=== PATIENT | male | born 1980 | race Caucasian/White ===

== ENCOUNTER 2016-09-16 22:28 | Emergency (ER) | payer OTHER ==
[~2016-09-16] VITALS: Ht 175.3 cm; Wt 88.0 kg
[~2016-09-16 22:28] MED LIST: ASPI-664 PO; LAS20 PO; LEVO500T10 PO; POTA20TA15 PO
[2016-09-16 22:33] VITALS: Ht 175.3 cm; Wt 88.0 kg
[2016-09-16] MEDS ORDERED: FAMOTIDINE 20 MG INJ IV STA (22:49)
[2016-09-16] MEDS ORDERED: ONDANSETRON 4 MG INJ IV STA (22:49)
[2016-09-16] MEDS ORDERED: LIDOCAINE/MYLANTA 40 ML BTL PO STA (22:49)
[2016-09-16] MEDS ORDERED: HYDROmorphONE 1 MG/ML SYG IV STA (22:49)
[2016-09-16 23:02] LABS: BASOPHIL # 0.1 10^3/ul (0.0-0.1); BASOPHILS % 0.5 % (0.0-2.0); EOSINOPHILS # 0.1 10^3/ul (0.0-0.5); EOSINOPHILS % 0.5 % (0.0-7.0); HEMATOCRIT 50.1 % (42.0-52.0); HEMOGLOBIN 16.9 g/dl (14.0-18.0); LYMPHOCYTES # 3.3 10^3/ul (0.8-2.9); LYMPHOCYTES % 19.3 % (15.0-51.0); MEAN CORPUSCULAR HEMOGLOBIN 30.1 pg (29.0-33.0); MEAN CORPUSCULAR HGB CONC 33.7 g/dl (32.0-37.0); MEAN CORPUSCULAR VOLUME 89.4 fl (82.0-101.0); MEAN PLATELET VOLUME 7.5 fl (7.4-10.4); MONOCYTE # 0.8 10^3/ul (0.3-0.9); MONOCYTES % 4.5 % (0.0-11.0); NEUTROPHIL # 12.8 10^3/ul (1.6-7.5); NEUTROPHILS % 75.2 % (39.0-77.0); PLATELET COUNT 387 10^3/UL (140-440); RED CELL DISTRIBUTION WIDTH 13.7 % (11.5-14.5)
[2016-09-16 23:03] LABS: CONDITION 1
[2016-09-16 23:17] LABS: ALBUMIN 4.7 g/dl (3.3-4.9); CHLORIDE 100 mmol/L (97-110)
[2016-09-16 23:18] LABS: POTASSIUM 4.1 mmol/L (3.5-5.1); SODIUM 143 mmol/L (135-144)
[2016-09-16 23:20] LABS: ALANINE AMINOTRANSFERASE 52 IU/L (13-69); ALBUMIN/GLOBULIN RATIO 1.42; ALKALINE PHOSPHATASE 90 IU/L (42-121); ANION GAP 22 (8-16); ASPARTATE AMINO TRANSFERASE 28 IU/L (15-46); BILIRUBIN,INDIRECT 0.3 mg/dl (0-1.1); BILIRUBIN,TOTAL 0.3 mg/dl (0.2-1.3); BLOOD UREA NITROGEN 14 mg/dl (7-20); CALCIUM 10.2 mg/dl (8.4-10.2); CARBON DIOXIDE 25 mmol/L (21-31); CREATININE 0.86 mg/dl (0.61-1.24); GLUCOSE 133 mg/dl (70-220)
[2016-09-16 23:46] LABS: TROPONIN-I < 0.012 ng/ml (0.00-0.12)
[2016-09-16] MEDS ORDERED: SOD CHLORIDE 0.9% 100 ML ONE (23:56)
[2016-09-16] MEDS ORDERED: IOHEXOL 300MG/ML 150 ML BTL ONE (23:56)
--- NOTE | 2016-09-17 | RADRPT ---
PROCEDURE: Ultrasound of the abdomen. CLINICAL INDICATION: Right upper quadrant pain. TECHNIQUE: Sonographic images of the abdomen were performed. COMPARISON: No pertinent prior examinations were submitted for comparison. FINDINGS: Examination is limited by body habitus. Liver: The liver is normal in echogencity and size measuring approximately 14.8 cm. The hepatic vei ns and portal veins are patent with appropriate directional flow. No intrahepatic ductal dilatation is seen. Gallbladder: Small stones are noted within the gallbladder, including the gallbladder neck. There is also some sludge in the gallbladder. The gallbladder is distended with wall thickening measuring up to 5.7 mm. No definite pericholecystic free fluid is seen. The common duct measures 3.2 mm. Pancreas: There is limited evaluation of the pancreatic body and tail. The visualized portions of the pancreas are unremarkable. Kidneys: The right kidney measures 10.6 cm. There is normal corticomedullary differentiation. Ther e is no evidence of renal calculus or hydronephrosis. IVC: The visualized portion of the inferior vena cava is unremarkable. Aorta: Normal in size. Free fluid: None. IMPRESSION: Cholelithiasis with gallbladder distension and gallbladder wall thickening. Findings are suggestive of cholecystitis. RPTAT: HIKT .Eran Padilla MD, MD Date Time Electronically viewed and signed by .Eran Padilla MD, MD on 09/17/2016 00:00 .T/
[2016-09-17] MEDS ORDERED: HYDROmorphONE 1 MG/ML SYG IV STA (00:34)
[2016-09-17] MEDS ORDERED: DICY20TA59 PO (00:40)
[2016-09-17] MEDS ORDERED: ONDA4TAB14 PO (00:40)
[2016-09-17] MEDS ORDERED: HYDR-902 PO (00:40)
--- NOTE | 2016-09-17 00:51 | ERD ---
ER Documentation Chief Complaint Date/Time DATE: 09/17/16 TIME: 00:42 Chief Complaint abd pain x 3 hours HPI This a 36-year-old male who comes in with complaining of epigastric sharp pain onset 3 hours ago. Patient states that he smoked meth and marijuana a few hours ago as well. He is not having any chest pain or shortness of breath but is having some severe epigastric pain without radiation. He says he is nauseated and try to make himself vomit to feel better but it did not work. He has no diarrhea no back pain no melena no blood in his vomitus. Patient does say he just ate a fatty meal. The patient has a history of congestive heart failure ROS All systems reviewed and are negative except as per history of present illness. Medications Home Meds Active Scripts Hydrocodone/Acetaminophen ([place] 10-325 Tablet) 1 Each Tablet, 1 TAB PO Q6H Y for PAIN, #20 TAB Prov:MARK KHAN DO 09/17/16 Ondansetron (Ondansetron Odt) 4 Mg Tab.rapdis, 4 MG PO Q6H Y for NAUSEA AND/OR VOMITING, #10 TAB Prov:MARK KHAN DO 09/17/16 Dicyclomine Hcl* (Bentyl*) 20 Mg Tablet, 20 MG PO QID, #30 TAB Prov:MARK KHAN DO 09/17/16 Potassium Chloride* (K-Dur*) 20 Meq Tab.prt.sr, 20 MEQ PO DAILY, #60 TAB.SA Prov:GINNA BRAVO MD 12/20/15 Furosemide (Lasix) 20 Mg Tab, 20 MG PO BID for CHF, #120 TAB Prov:GINNA BRAVO MD 12/20/15 Levofloxacin* (Levofloxacin*) 500 Mg Tablet, 500 MG PO DAILY for acute bronchitis , #5 TAB Prov:GINNA BRAVO MD 12/20/15 Aspirin* (Aspirin* EC) 81 Mg Tablet.dr, 81 MG PO DAILY, #100 TAB Prov:GINNA BRAVO MD 12/20/15 Allergies Allergies: Coded Allergies: No Known Allergy (Unverified , 09/16/16) PMhx/Soc Medical and Surgical Hx: pt denies Surgical Hx History of Surgery: No Anesthesia Reaction: No Hx Neurological Disorder: No Hx Respiratory Disorders: Yes (SOB) Hx Cardiac Disorders: Yes (CHF) Hx Psychiatric Problems: No Hx Miscellaneous Medical Probl: Yes (drug abuse) Hx Alcohol Use: No Hx Substance Use: Yes (crystal meth and marijuana earlier tonight) Hx Tobacco Use: No Smoking Status: Never smoker FmHx Family History: No coronary disease Physical Exam Vitals Vital Signs Date Time Temp Pulse Resp B/P Pulse Ox O2 Delivery O2 Flow Rate FiO2 09/16/16 22:52 97.9 82 28 149/90 100 Room Air 09/16/16 22:33 97.2 102 20 167/107 97 Physical Exam Const: Well-developed, well-nourished in distress from pain Head: Atraumatic, normocephalic Eyes: Normal Conjunctiva, PERRLA, EOMI, normal sclera, no nystagmus ENT: Normal External Ears, Nose and Mouth, moist mucus membranes. Neck: Full range of motion. No meningismus, no lymphadenopathy. Resp: Clear to auscultation bilaterally, no wheezing, rhonchi, rales Cardio: Regular rate and rhythm, no murmurs, S1 S2 present Abd: Soft, moderate to severe epigastric tenderness, non distended. Normal bowel sounds, no guarding or rebound, no pulsitile abdominal masses or bruits Skin: No petechiae or rashes, no ecchymosis , no maculopapular rash Back: No midline or flank tenderness Ext: No cyanosis, or edema, FROM x 4, normal inspection, neurovascularly intact x 4 Neur: Awake and alert, STR 5/5 x 4, sensation intact x 4, no focal findings, cerebellum intact Psych: Normal Mood and Affect Result Diagram: 09/16/16224909/16/162249 Results 24 hrs Laboratory Tests Test 09/16/16 22:50 Alanine Aminotransferase (ALT/SGPT) 52IU/L Albumin 4.7g/dl Albumin/Globulin Ratio 1.42 Alkaline Phosphatase 90IU/L Anion Gap 22 Aspartate Amino Transf (AST/SGOT) 28IU/L Basophils # 0.110^3/ul Basophils % 0.5% Blood Urea Nitrogen 14mg/dl Calcium Level 10.2mg/dl Carbon Dioxide Level 25mmol/L Chloride Level 100mmol/L Creatinine 0.86mg/dl Direct Bilirubin 0.00mg/dl Eosinophils # 0.110^3/ul Eosinophils % 0.5% Globulin 3.30g/dl Glucose Level 133mg/dl Hematocrit 50.1% Hemoglobin 16.9g/dl Indirect Bilirubin 0.3mg/dl Lipase 71U/L Lymphocytes # 3.310^3/ul Lymphocytes % 19.3% Mean Corpuscular Hemoglobin 30.1pg Mean Corpuscular Hemoglobin Concent 33.7g/dl Mean Corpuscular Volume 89.4fl Mean Platelet Volume 7.5fl Monocytes # 0.810^3/ul Monocytes % 4.5% Neutrophils # 12.810^3/ul Neutrophils % 75.2% Nucleated Red Blood Cells # 0.010^3/ul Nucleated Red Blood Cells % 0.0/100WBC Platelet Count 84127^3/UL Potassium Level 4.1mmol/L Red Blood Count 5.6010^6/ul Red Cell Distribution Width 13.7% Sodium Level 143mmol/L Total Bilirubin 0.3mg/dl Total Protein 8.0g/dl Troponin I < 0.012ng/ml White Blood Count 17.010^3/ul Current Medications Medications (Trade) Dose Ordered Sig/Braxton Route PRN Reason Start Time Stop Time Status Last Admin Dose Admin Hydromorphone HCl (Dilaudid) 1 mg ONCE STAT IV 09/16/16 22:49 09/16/16 22:52 DC 09/16/16 22:58 Ondansetron HCl (Zofran Inj) 4 mg ONCE STAT IV 09/16/16 22:49 09/16/16 22:52 DC 09/16/16 22:58 Famotidine (Pepcid Iv) 20 mg ONCE STAT IV 09/16/16 22:49 09/16/16 22:52 DC 09/16/16 22:58 Miscellaneous Medication (Gi Cocktail (2)) 40 ml ONCE STAT PO 09/16/16 22:49 09/16/16 22:52 DC 09/16/16 22:58 IV Flush 10 ml 10 ml STK-MED ONCE .ROUTE 09/16/16 23:56 09/16/16 23:57 DC Sodium Chloride (NS) 100 ml @ ud STK-MED ONCE .ROUTE 09/16/16 23:56 09/16/16 23:57 DC Iohexol (Omnipaque 300mg/ ml) 150 ml STK-MED ONCE .ROUTE 09/16/16 23:56 09/16/16 23:57 DC Dicyclomine HCl (Bentyl) 20 mg ONCE ONCE IM 09/17/16 01:00 09/17/16 01:01 Hydromorphone HCl (Dilaudid) 1 mg ONCE STAT IV 09/17/16 00:34 09/17/16 00:36 DC 09/17/16 00:39 Procedures/MDM EKG: Rate/Rhythm: Normal sinus rhythm heart rate 87, inverted T waves in leads V2 V3 V4 QRS, ST, QT: NORMAL VA, QRS, QT] Impression: Abnormal EKG EKG2: Rate/Rhythm: Sinus bradycardia heart rate 54, inverted T waves in leads V2 V3 V4 V5 QRS, ST, QT: NORMAL VA, QRS, QT Impression: NORMAL EKG PROCEDURE: Ultrasound of the abdomen. CLINICAL INDICATION: Right upper quadrant pain. TECHNIQUE: Sonographic images of the abdomen were performed. COMPARISON: No pertinent prior examinations were submitted for comparison. FINDINGS: Examination is limited by body habitus. Liver: The liver is normal in echogencity and size measuring approximately 14.8 cm. The hepatic veins and portal veins are patent with appropriate directional flow. No intrahepatic ductal dilatation is seen. Gallbladder: Small stones are noted within the gallbladder, including the gallbladder neck. There is also some sludge in the gallbladder. The gallbladder is distended with wall thickening measuring up to 5.7 mm. No definite pericholecystic free fluid is seen. The common duct measures 3.2 mm. Pancreas: There is limited evaluation of the pancreatic body and tail. The visualized portions of the pancreas are unremarkable. Kidneys: The right kidney measures 10.6 cm. There is normal corticomedullary differentiation. There is no evidence of renal calculus or hydronephrosis. IVC: The visualized portion of the inferior vena cava is unremarkable. Aorta: Normal in size. Free fluid: None. IMPRESSION: Cholelithiasis with gallbladder distension and gallbladder wall thickening. Findings are suggestive of cholecystitis. RPTAT: HIKT .Eran Padilla MD, MD Date Time Electronically viewed and signed by .Eran Padilla MD, MD on 09/17/2016 00:00 .T/ CC: MARK KHAN DO Patient was given a few rounds of Dilaudid, Zofran, and Bentyl.. This pain is improved. Troponin is negative no evidence of myocardial infarction. He does have an abnormal EKG, 2 EKG tracings were done and both of the same, this is likely from his history of heart failure. LFTs are normal. Will cover him with Cipro, Bentyl, [place] and Zofran at home Departure Diagnosis: Primary Impression: Gallstones Condition: Stable Patient Instructions: Treating Gallstones, Gallstones Referrals: BRANDEN BARRAZA M.D., APOSTOLOS A. DO Sep 17, 2016 00:51
[2016-09-17] MEDS ORDERED: CIPR500T4 PO (00:52)
[2016-09-17] MEDS ORDERED: DICYCLOMINE 20 MG INJ IM ONE (01:00)
[2016-09-17 01:12] VITALS: BP 156/90; PULSE 56; RESP 23; TEMP 97.9
[2016-09-17] MEDS ORDERED: ONDANSETRON (ODT) 4 MG TAB ODT STA (01:30)
== END 2016-09-17 01:34 | disposition home or self-care (01) ==
LOC: E/R 22:28
DX: K80.20 Calculus of gallbladder without cholecystitis without obstruction (principal); I50.9 Heart failure, unspecified; R40.2142 Coma scale, eyes open, spontaneous, at arrival to emergency department; R40.2252 Coma scale, best verbal response, oriented, at arrival to emergency department; R40.2362 Coma scale, best motor response, obeys commands, at arrival to emergency department; Z79.82 Long term (current) use of aspirin
CPT/HCPCS: 36415; 76705; 80053; 83690; 84484; 85025; 93005; 96372; 96374; 96375; 96376; J0500; J1170; J2405; Q9967; Z7502; Z7610

== ENCOUNTER 2016-09-20 19:58 | Emergency (ER) | payer OTHER ==
[~2016-09-20] VITALS: Ht 175.3 cm; Wt 105.0 kg
[~2016-09-20 19:58] MED LIST changes: +CIPR500T4 PO; +DICY20TA59 PO; +HYDR-902 PO; +ONDA4TAB14 PO
[2016-09-20 20:01] VITALS: Ht 175.3 cm; Wt 105.0 kg
[2016-09-20] MEDS ORDERED: ONDANSETRON 4 MG INJ IV STA ×2 (20:56→21:35)
[2016-09-20] MEDS ORDERED: morphine 4 MG/ML VIAL IV STA (20:56)
[2016-09-20] MEDS ORDERED: SOD CHLORIDE 0.9% 1,000 ML IV STA (20:56)
--- NOTE | 2016-09-20 21:20 | RADRPT ---
PROCEDURE: XR Chest. CLINICAL INDICATION: Abdominal pain. TECHNIQUE: Single frontal view of the chest was obtained COMPARISON: None FINDINGS: Cardiomegaly. The lungs are clear. There is no pleural effusion or pneumothorax. IMPRESSION: Cardiomegaly, and otherwise, no evident acute cardiopulmonary disease. RPTAT: UU Physician Adina Date Time Electronically viewed and signed by Alex Delaney Physician on 09/20/2016 21:20 RS/
[2016-09-20] MEDS ORDERED: HYDROmorphONE 1 MG/ML SYG IV STA (21:35)
[2016-09-20 21:43] LABS: HEMATOCRIT 46.4 % (42.0-52.0); HEMOGLOBIN 15.5 g/dl (14.0-18.0); MEAN CORPUSCULAR HEMOGLOBIN 30.3 pg (29.0-33.0); MEAN CORPUSCULAR HGB CONC 33.3 g/dl (32.0-37.0); MEAN CORPUSCULAR VOLUME 90.8 fl (82.0-101.0); MEAN PLATELET VOLUME 8.1 fl (7.4-10.4); PLATELET COUNT 319 10^3/UL (140-440); RED BLOOD COUNT 5.11 10^6/ul (4.70-6.10); RED CELL DISTRIBUTION WIDTH 12.9 % (11.5-14.5); UNCORRECTED WBC 24.1 10^3/ul (4.8-10.8); WHITE BLOOD COUNT 24.1 10^3/ul (4.8-10.8)
[2016-09-20 21:46] LABS: CONDITION 1; LH ANALYZER COMMENTS 1; SUSPECT 1
[2016-09-20 21:52] LABS: ALBUMIN 3.8 g/dl (3.3-4.9); POTASSIUM 4.3 mmol/L (3.5-5.1)
[2016-09-20 21:54] LABS: CREATININE 0.96 mg/dl (0.61-1.24)
[2016-09-20 21:55] LABS: ALBUMIN/GLOBULIN RATIO 1.02; BILIRUBIN,INDIRECT 0.6 mg/dl (0-1.1); BILIRUBIN,TOTAL 0.6 mg/dl (0.2-1.3); CALCIUM 9.5 mg/dl (8.4-10.2); TOTAL PROTEIN 7.5 g/dl (6.1-8.1)
[2016-09-20 22:34] LABS: LYMPHOCYTES # 1.7 10^3/ul (0.8-2.9); MONOCYTE # 1.9 10^3/ul (0.3-0.9); NEUTROPHIL # 20.5 10^3/ul (1.6-7.5)
[2016-09-20 22:35] LABS: PLATELET ESTIMATE PLT APPEAR ADEQUATE
--- NOTE | 2016-09-20 22:39 | RADRPT ---
PROCEDURE: Ultrasound abdomen. CLINICAL INDICATION: Abdominal pain. TECHNIQUE: Ultrasound examination of the abdomen with focus on the right upper quadrant. COMPARISON: Ultrasound abdomen dated 09/16/2016. FINDINGS: Multiple gallstones is seen. No evident pericholecystic fluid. Gallbladder wall thickening measuri ng up to about 8 mm. Gallbladder wall thickening is increased over interval since 09/16/2016, previo usly measuring about 6 mm. Pancreas not visualized secondary to overlying bowel gas. The liver is unremarkable measuring up to about 168 mm. Common bile duct is unremarkable measuring up to about 4 mm. Right kidney measures up to 136 mm and there is no evident renal mass, hydronephrosis retained calcu quyen. IMPRESSION: Gallbladder wall thickening and gallstones represent acute cholecystitis the appropriate clinical se tting. RPTAT: UU Physician Adina Date Time Electronically viewed and signed by Physician Adina on 09/20/2016 22:38 RS/
--- NOTE | 2016-09-20 22:47 | ERA ---
ER Documentation Chief Complaint Date/Time DATE: 09/20/16 TIME: 22:43 Chief Complaint sharp ruq abdominal pain for past hour, history of galstones HPI The patient is a 36-year-old male, presenting to the ER because of severe right upper quadrant and epigastric abdominal pain today. He has had abdominal pain intermittently since September 10, 2016. He was seen in the ER 3 days ago and had blood tests that showed high leukocytosis of 17,000 and gallbladder ultrasound showed cholelithiasis with gallbladder distension and gallbladder wall thickening, the findings are suggestive of cholecystitis. He was however discharged with Cipro and pain medication. He came back today because of worsening and severe abdominal pain, 8/10, no aggravating or relieving factor. He denies fever, chills, neck pain, chest pain, dyspnea, vomiting, diarrhea, constipation, dysuria. He does not smoke, drink, history of substance abuse Past medical history: History of CHF, cardiomyopathy with EF of 20-25% Past surgical history: None ROS All systems reviewed and are negative except as per history of present illness. Medications Home Meds Active Scripts Ciprofloxacin Hcl* (Ciprofloxacin Hcl*) 500 Mg Tablet, 500 MG PO BID for 7 Days , TAB Prov:MARK KHAN. DO 09/17/16 Hydrocodone/Acetaminophen ([place] 10-325 Tablet) 1 Each Tablet, 1 TAB PO Q6H Y for PAIN, #20 TAB Prov:KIMBERLYN KHANS A. DO 09/17/16 Ondansetron (Ondansetron Odt) 4 Mg Tab.rapdis, 4 MG PO Q6H Y for NAUSEA AND/OR VOMITING, #10 TAB Prov:MARK KHAN. DO 09/17/16 Dicyclomine Hcl* (Bentyl*) 20 Mg Tablet, 20 MG PO QID, #30 TAB Prov:CHRISTOS KHANSTVALENTINOS A. DO 09/17/16 Potassium Chloride* (K-Dur*) 20 Meq Tab.prt.sr, 20 MEQ PO DAILY, #60 TAB.SA Prov:GINNA CHOUDHARY MD 12/20/15 Furosemide (Lasix) 20 Mg Tab, 20 MG PO BID for CHF, #120 TAB Prov:GINNA CHOUDHARY MD 12/20/15 Levofloxacin* (Levofloxacin*) 500 Mg Tablet, 500 MG PO DAILY for acute bronchitis , #5 TAB Prov:GINNA CHOUDHARY MD 12/20/15 Aspirin* (Aspirin* EC) 81 Mg Tablet.dr, 81 MG PO DAILY, #100 TAB Prov:GINNA CHOUDHARY MD 12/20/15 Allergies Allergies: Coded Allergies: No Known Allergy (Unverified , 09/16/16) PMhx/Soc Medical and Surgical Hx: pt denies Surgical Hx History of Surgery: No Anesthesia Reaction: No Hx Neurological Disorder: No Hx Respiratory Disorders: Yes (SOB) Hx Cardiac Disorders: Yes (CHF) Hx Psychiatric Problems: No Hx Miscellaneous Medical Probl: Yes (drug abuse) Hx Alcohol Use: No Hx Substance Use: Yes (crystal meth and marijuana earlier tonight) Hx Tobacco Use: No Physical Exam Vitals Vital Signs Date Time Temp Pulse Resp B/P Pulse Ox O2 Delivery O2 Flow Rate FiO2 09/20/16 21:33 79 30 111/65 99 Nasal Cannula 2.0 09/20/16 20:01 99.2 104 18 114/68 98 Physical Exam Const: No acute distress. Head: Atraumatic. Eyes: Normal Conjunctiva. ENT: Normal External Ears, Nose and Mouth. Neck: Full range of motion. No meningismus. Resp: Clear to auscultation bilaterally. Cardio: Regular but tachycardic Abd: Soft, moderate epigastric and right upper quadrant abdominal tenderness, no rigidity, rebound, CVA tenderness Skin: No petechiae or rashes. Back: No midline or flank tenderness. Ext: No cyanosis, or edema. Neur: Awake and alert. No focal deficit Psych: Normal Mood and Affect. Result Diagram: 09/20/16210809/20/162108 Results 24 hrs Laboratory Tests Test 09/20/16 21:09 09/20/16 23:00 Alanine Aminotransferase (ALT/SGPT) 104IU/L Albumin 3.8g/dl Albumin/Globulin Ratio 1.02 Alkaline Phosphatase 141IU/L Anion Gap 19 Aspartate Amino Transf (AST/SGOT) 71IU/L Blood Urea Nitrogen 16mg/dl Calcium Level 9.5mg/dl Carbon Dioxide Level 29mmol/L Chloride Level 94mmol/L Creatinine 0.96mg/dl Direct Bilirubin 0.00mg/dl Globulin 3.70g/dl Glucose Level 129mg/dl Hematocrit 46.4% Hemoglobin 15.5g/dl Indirect Bilirubin 0.6mg/dl Lipase 22U/L Lymphocytes # 1.710^3/ul Lymphocytes % 7.0% Mean Corpuscular Hemoglobin 30.3pg Mean Corpuscular Hemoglobin Concent 33.3g/dl Mean Corpuscular Volume 90.8fl Mean Platelet Volume 8.1fl Monocytes # 1.910^3/ul Monocytes % 8.0% Neutrophils # 20.510^3/ul Neutrophils % 85.0% Platelet Count 44029^3/UL Platelet Estimate PLT APPEAR ADEQUATE Potassium Level 4.3mmol/L Red Blood Count 5.1110^6/ul Red Cell Distribution Width 12.9% Sodium Level 138mmol/L Total Bilirubin 0.6mg/dl Total Protein 7.5g/dl White Blood Count 24.110^3/ul Urine Bilirubin 1+ Urine Clarity CLEAR Urine Color YELLOW Urine Glucose NEGATIVE% Urine Hemoglobin NEGATIVE Urine Ictotest Pending Urine Ketones TRACE Urine Leukocyte Esterase NEGATIVE Urine Microscopic RBC Pending Urine Microscopic WBC Pending Urine Nitrite NEGATIVE Urine Specific [place] 1.025 Urine Total Protein TRACE Urine Urobilinogen 1.0 E.U./dL Urine pH 5.5 Current Medications Medications (Trade) Dose Ordered Sig/Braxton Route PRN Reason Start Time Stop Time Status Last Admin Dose Admin Sodium Chloride (NS) 1,000 ml @ 1,000 mls/hr Q1H STAT IV 09/20/16 20:56 09/20/16 21:55 DC 09/20/16 21:06 Morphine Sulfate (morphine) 4 mg ONCE STAT IV 09/20/16 20:56 09/20/16 20:58 DC 09/20/16 21:06 Ondansetron HCl (Zofran Inj) 4 mg ONCE STAT IV 09/20/16 20:56 09/20/16 20:58 DC 09/20/16 21:06 Hydromorphone HCl (Dilaudid) 1 mg ONCE STAT IV 09/20/16 21:35 09/20/16 21:37 DC 09/20/16 21:48 Ondansetron HCl 4 mg 4 mg ONCE STAT IV 09/20/16 21:35 09/20/16 21:37 DC 09/20/16 21:49 Piperacillin Sod/ Tazobactam Sod (Zosyn 3.375gm/ 100 ml (Pmx)) 100 ml @ 200 mls/hr ONCE ONCE IVPB 09/20/16 23:00 09/20/16 23:29 DC 09/20/16 23:19 Furosemide (Lasix) 20 mg BID DIURETICS PO 09/21/16 06:00 Acetaminophen/ Hydrocodone Bitart 1 tab 1 tab Q6H PRN PO PAIN 09/20/16 23:30 Piperacillin Sod/ Tazobactam Sod 100 ml @ 200 mls/hr Q8 IVPB 09/21/16 06:00 Sodium Chloride (1/2 NS) 1,000 ml @ 30 mls/hr Q24H IV 09/20/16 23:16 IV Flush (NS 3 ml) 3 ml PER PROTOCOL IV 09/20/16 23:30 Ondansetron HCl (Zofran Inj) 4 mg Q4H PRN IV NAUSEA AND/OR VOMITING 09/20/16 23:30 Acetaminophen (Tylenol Tab) 650 mg Q6H PRN PO PAIN LEVEL 1-3 OR FEVER 09/20/16 23:30 Morphine Sulfate (morphine) 2 mg Q4H PRN IV SEVERE PAIN LEVEL 7-10 09/20/16 23:30 Docusate Sodium (Colace) 100 mg Q12H PRN PO CONSTIPATION 09/20/16 23:30 Magnesium Hydroxide (Milk Of Mag) 30 ml DAILY PRN PO CONSTIPATION 09/20/16 23:30 Bisacodyl (Dulcolax) 5 mg DAILY PRN PO CONSTIPATION 09/20/16 23:30 Zolpidem Tartrate (Ambien) 5 mg QHS PRN PO SLEEP 09/20/16 23:30 UNV Famotidine (Pepcid Iv) 20 mg Q12 IV 09/21/16 09:00 Albuterol/ Ipratropium (Duoneb) 3 ml Q2H RESP THERAPY PRN HHN SHORTNESS OF BREATH 09/20/16 23:30 Procedures/MDM EKG: Read by emergency physician Rate/Rhythm: Normal Sinus Rhythm 78 beats per min QRS, ST, T-waves: No ST elevation, anterior T abnormality Impression: Abnormal EKG [place] [id number] Radiology Main Line: [phone] DIAGNOSTIC IMAGING REPORT Patient: SOMMER AMOS : 1980 Age: 36 Sex: M MR #: [id number] DOS: 09/20/162055 Ordering MD: TONY VALENTIN PA-C Location: [facility] Room/Bed: PROCEDURE: Ultrasound abdomen. CLINICAL INDICATION: Abdominal pain. TECHNIQUE: Ultrasound examination of the abdomen with focus on the right upper quadrant. COMPARISON: Ultrasound abdomen dated 09/16/2016. FINDINGS: Multiple gallstones is seen. No evident pericholecystic fluid. Gallbladder wall thickening measuring up to about 8 mm. Gallbladder wall thickening is increased over interval since 09/16/2016, previously measuring about 6 mm. Pancreas not visualized secondary to overlying bowel gas. The liver is unremarkable measuring up to about 168 mm. Common bile duct is unremarkable measuring up to about 4 mm. Right kidney measures up to 136 mm and there is no evident renal mass, hydronephrosis retained calculus. IMPRESSION: Gallbladder wall thickening and gallstones represent acute cholecystitis the appropriate clinical setting. RPTAT: [facility]U Physician Adina Date Time Electronically viewed and signed by Physician Adina on 09/20/2016 22:38 RS/ CC: TONY VALENTIN PA-C [place] [id number] Radiology Main Line: [phone] DIAGNOSTIC IMAGING REPORT Patient: SOMMER AMOS : 1980 Age: 36 Sex: M MR #: [id number] DOS: 09/20/162055 Ordering MD: TONY VALENTIN PA-C Location: [facility] Room/Bed: PROCEDURE: XR Chest. CLINICAL INDICATION: Abdominal pain. TECHNIQUE: Single frontal view of the chest was obtained COMPARISON: None FINDINGS: Cardiomegaly. The lungs are clear. There is no pleural effusion or pneumothorax. IMPRESSION: Cardiomegaly, and otherwise, no evident acute cardiopulmonary disease. RPTAT: UU Physician Adina Date Time Electronically viewed and signed by Physician Adina on 09/20/2016 21:20 RS/ CC: TONY VALENTIN PA-C MEDICAL MAKING DECISION: The patient is a 36-year-old male, presenting with acute cholecystitis. He was treated with Zosyn IV, IV fluids, Dilaudid IV and morphine IV for pain and Zofran IV for nausea with good response. The differential diagnoses considered include but are not limited to cholelithiasis , cholecystitis, cystitis, pancreatitis, hepatitis, gastritis, peptic ulcer disease, gastric ulcer, appendicitis, diverticulitis, cholangitis, choledocholithiasis, partial small bowel obstruction. Consultation: I discussed the patient with the on-call general surgeon Dr. Lr at 11 PM, who was made aware of the lab, the patient condition, the treatment. He accepted the consult Departure Diagnosis: Primary Impression: Cholecystitis Condition: Stable Comments I discussed the findings with the patient. I discussed the patient with his physician Dr. Tello Choudhary who was made aware of the lab, the treatment, the patient condition and my discussion with the general surgeon. The patient is admitted to medical surgery bed at 11:15 pm KAYLEEN SCHAEFER MD Sep 20, 2016 22:47
[2016-09-20] MEDS ORDERED: PIPER-TAZO 3.375 GM IV (PMX) 100 ML IVPB ONE (23:00)
[2016-09-20] MEDS ORDERED: SOD CHLORIDE 0.45% 1,000 ML IV SCH (23:16)
[2016-09-20 23:24] LABS: ADD UMIC YES; URINE BILIRUBIN (Dip) 1+ (NEGATIVE); URINE BLOOD (Dip) NEGATIVE (NEGATIVE); URINE COLOR YELLOW (YELLOW); URINE GLUCOSE (Dip) NEGATIVE (NEGATIVE); URINE KETONES (Dip) TRACE (NEGATIVE); URINE LEUKOCYTE ESTERASE (Dip) NEGATIVE (NEGATIVE); URINE NITRITE (Dip) NEGATIVE (NEGATIVE); URINE TOTAL PROTEIN (Dip) TRACE (NEGATIVE); URINE UROBILINOGEN (Dip) 1.0 E.U./dL (0.1-1.0)
[2016-09-20 23:30] VITALS: BP 116/67; PULSE 81; RESP 19
[2016-09-20] MEDS ORDERED: ALBUTEROL/IPRATROPIUM (NEB) 3 ML AMP HHN PRN (23:30)
[2016-09-20] MEDS ORDERED: ZOLPIDEM 5 MG TAB PO PRN (23:30)
[2016-09-20] MEDS ORDERED: MAGNESIUM HYDROXIDE 30ML CUP PO PRN (23:30)
[2016-09-20] MEDS ORDERED: BISACODYL (EC) 5 MG TAB PO PRN (23:30)
[2016-09-20] MEDS ORDERED: DOCUSATE SODIUM 100 MG CAP PO PRN (23:30)
[2016-09-20] MEDS ORDERED: morphine 2 MG INJ IV PRN (23:30)
[2016-09-20] MEDS ORDERED: ONDANSETRON 4 MG INJ IV PRN (23:30)
[2016-09-20] MEDS ORDERED: ACETAMINOPHEN 325 MG TAB PO PRN (23:30)
[2016-09-20] MEDS ORDERED: HYDROCODONE/APAP (10/325) TAB PO PRN (23:30)
[2016-09-20] MEDS ORDERED: NACL 0.9% 3 ML SYG IV SCH (23:30)
[2016-09-20 23:50] LABS: ICTOTEST NEGATIVE (NEGATIVE)
[2016-09-20 23:51] LABS: MUCUS,URINE FEW; SQUAMOUS EPITHELIAL CELL,UR RARE; URINE RBCS 0-2 /HPF (0)
[2016-09-21] MEDS ORDERED: PIPER-TAZO 3.375 GM IV (PMX) 100 ML IVPB SCH (06:00)
[2016-09-21] MEDS ORDERED: FUROSEMIDE 20 MG TAB PO SCH (06:00)
[2016-09-21] MEDS ORDERED: FAMOTIDINE 20 MG INJ IV SCH (09:00)
== END 2016-09-21 01:32 | disposition left against medical advice (07) ==
LOC: FTE 19:58 → MS2 23:19 → UNDOADMIN 23:19
DX: K81.9 Cholecystitis, unspecified (principal); I50.9 Heart failure, unspecified; Z79.82 Long term (current) use of aspirin
CPT/HCPCS: 71010; 76705; 80053; 81001; 83690; 85025; 93005; J1170; J2270; J2405; J2543; J7030; Z7610; 36415; 81003; 96374; 96375; 96376

== ENCOUNTER 2016-09-21 03:48 | Inpatient (IN) | payer OTHER ==
[~2016-09-21] VITALS: Ht 200.7 cm; Wt 110.0 kg
[2016-09-21] MEDS ORDERED: morphine 2 MG INJ IV PRN (05:00)
[2016-09-21] MEDS ORDERED: ONDANSETRON 4 MG INJ IV PRN (05:00)
[2016-09-21] MEDS ORDERED: HYDROCODONE/APAP (10/325) TAB PO PRN (05:00)
[2016-09-21] MEDS ORDERED: ACETAMINOPHEN 325 MG TAB PO PRN (05:00)
[2016-09-21] MEDS ORDERED: SOD CHLORIDE 0.45% 1,000 ML IV SCH (05:00)
[2016-09-21] MEDS ORDERED: ZOLPIDEM 5 MG TAB PO PRN (05:00)
[2016-09-21] MEDS ORDERED: MAGNESIUM HYDROXIDE 30ML CUP PO PRN (05:00)
[2016-09-21] MEDS ORDERED: ALBUTEROL/IPRATROPIUM (NEB) 3 ML AMP HHN PRN (05:00)
[2016-09-21] MEDS ORDERED: BISACODYL (EC) 5 MG TAB PO PRN (05:00)
[2016-09-21] MEDS ORDERED: DOCUSATE SODIUM 100 MG CAP PO PRN (05:00)
[2016-09-21 05:16] LABS: BASOPHIL # 0.1 10^3/ul (0.0-0.1); BASOPHILS % 0.2 % (0.0-2.0); EOSINOPHILS # 0.2 10^3/ul (0.0-0.5); EOSINOPHILS % 0.8 % (0.0-7.0); HEMATOCRIT 42.9 % (42.0-52.0); HEMOGLOBIN 14.5 g/dl (14.0-18.0); LYMPHOCYTES # 1.5 10^3/ul (0.8-2.9); LYMPHOCYTES % 6.4 % (15.0-51.0); MEAN CORPUSCULAR HEMOGLOBIN 30.4 pg (29.0-33.0); MEAN CORPUSCULAR HGB CONC 33.7 g/dl (32.0-37.0); MEAN CORPUSCULAR VOLUME 90.2 fl (82.0-101.0); MEAN PLATELET VOLUME 7.9 fl (7.4-10.4); MONOCYTE # 1.8 10^3/ul (0.3-0.9); MONOCYTES % 7.8 % (0.0-11.0); NEUTROPHIL # 19.4 10^3/ul (1.6-7.5); NEUTROPHILS % 84.8 % (39.0-77.0); PLATELET COUNT 353 10^3/UL (140-440); RED BLOOD COUNT 4.76 10^6/ul (4.70-6.10); RED CELL DISTRIBUTION WIDTH 13.3 % (11.5-14.5); UNCORRECTED WBC 22.9 10^3/ul (4.8-10.8); WHITE BLOOD COUNT 22.9 10^3/ul (4.8-10.8)
[2016-09-21 05:22] LABS: INR 1.12; PROTIME 14.4 Sec (12.2-14.2); PT RATIO 1.1
[2016-09-21 05:23] LABS: PARTIAL THROMBOPLASTIN TIME 32.4 Sec (25.0-35.0)
[2016-09-21 05:25] LABS: ALBUMIN 3.6 g/dl (3.3-4.9)
[2016-09-21 05:26] LABS: CONDITION 1; LH ANALYZER COMMENTS 1; POTASSIUM 3.6 mmol/L (3.5-5.1); SUSPECT 1
[2016-09-21 05:28] LABS: ALBUMIN/GLOBULIN RATIO 0.97; BILIRUBIN,INDIRECT 0.9 mg/dl (0-1.1); BILIRUBIN,TOTAL 0.9 mg/dl (0.2-1.3); CREATININE 1.03 mg/dl (0.61-1.24); TOTAL PROTEIN 7.3 g/dl (6.1-8.1)
[2016-09-21 05:29] LABS: CALCIUM 9.3 mg/dl (8.4-10.2); CHOL/HDL RATIO 3.4 RATIO
[2016-09-21 05:52] VITALS: TEMP 99.3
[2016-09-21] MEDS ORDERED: FUROSEMIDE 20 MG TAB PO SCH (06:00)
[2016-09-21] MEDS: PIPER-TAZO 3.375 GM IV (PMX) 100 ML IVPB SCH ×2 (06:28→14:07)
[2016-09-21 06:52] VITALS: BP 108/56; PULSE 67; RESP 18
[2016-09-21 07:55] VITALS: BP 95/55; RESP 18
[2016-09-21 08:00] VITALS: Ht 200.7 cm; Wt 110.0 kg
[2016-09-21] MEDS ORDERED: BISACODYL (EC) 5 MG TAB PO SCH (09:00)
[2016-09-21] MEDS ORDERED: FAMOTIDINE 20 MG INJ IV SCH (09:00)
--- NOTE | 2016-09-21 10:01 | CONS ---
DATE OF ADMISSION: 09/21/2016 DATE OF CONSULTATION: 09/21/2016 HISTORY OF PRESENT ILLNESS: Mr. Sparks is a 36-year-old male who presented to the ER today due to epig astric and right upper quadrant pain. The patient was to be admitted, but then eloped but then retu rned to the ER. The patient seen in the ER for similar symptoms 3 days ago; there was a concern for cholecystitis, and I was called for consultation. PAST MEDICAL HISTORY: CHF, cardiomyopathy with ejection fraction of 20% to 25%. PAST SURGICAL HISTORY: None. MEDICATIONS 1. Cipro. 2. [place]. 3. Bentyl. 4. K-Dur. 5. Lasix. 6. Levofloxacin. 7. Aspirin. ALLERGIES: NO KNOWN DRUG ALLERGIES. SOCIAL HISTORY: The patient has recently used crystal meth and marijuana, which was used earlier to day. PHYSICAL EXAMINATION GENERAL: He is a well-nourished, well-developed male in some mild distress. VITAL SIGNS: He is afebrile. Vital signs stable. CHEST: Clear to auscultation bilaterally. HEART: Regular rhythm. ABDOMEN: Soft, nondistended but some epigastric right upper quadrant tenderness. DIAGNOSTIC DATA: Ultrasound of his right upper quadrant reveals gallbladder wall thickening and gal lstones; no pericholecystic fluid. LABORATORY DATA: Reveal a white count of 24, hematocrit of 46 and platelets of 319. Sodium 138, po tassium 4.3, chloride 94, CO2 of 29, BUN and creatinine 16 and 0.9 and glucose 129. AST 71, ALT 104 , alkaline phosphatase 141, bilirubin is 0.6. ASSESSMENT AND PLAN: Mr. Sparks is a 36-year-old male with epigastric and right upper quadrant pain. 1. This could possibly be acute cholecystitis. HIDA scan will be performed. If positive, then wou ld recommend laparoscopic cholecystectomy. 2. The patient can also be drug seeking, as he has a history of this in the past. 3. N.P.O., IV fluids and IV antibiotics now. 4. Repeat CBC in a.m. Dictated By: SARAH PATTON/NTS Conf#: [id number] DID#: [id number]
[2016-09-21 11:35] VITALS: BP 111/74; PULSE 70; RESP 20
--- NOTE | 2016-09-21 11:56 | RADRPT ---
AMENDMENT: 09/21/2016 2:12:46 PM Radha Yarbrough MD Delayed images of the abdomen were obtained at 4 hours post injection demonstrate a persistent nonvi sualization of the gallbladder. AMENDMENT: 09/21/2016 1:13:11 PM Radha Yarbrough MD Upon the additional review of the HIDA images, there is no definite visualization of the gallbladder up to 90 minutes post injection. Area of increased activity visualized in the gallbladder fossa reg ion on the anterior views likely represents a physiologic activity in the loop of small bowel as the finding cannot be confirmed on the oblique views. Delayed images to follow. A call report was made to Dr. Lr at 01:00 p.m. on September 21, 2016. PROCEDURE: Nuclear medicine hepatobiliary scan CLINICAL INDICATION: Abdominal pain, gallstones. TECHNIQUE: 8.1 mCi of technetium-99m Choletec was administered intravenously. Planar imaging of t he hepatobiliary system was performed. Delayed images were obtained. Images were reviewed on the [employer] PACS workstation. COMPARISON: Abdominal ultrasound from 09/20/2016. FINDINGS: There is normal and homogeneous uptake throughout the hepatobiliary system. There is normal emptyin g of radiotracer into the biliary tract. The common bile duct is normal. The gallbladder is visual ized at 20 minutes. There is visualization of the small bowel at 15 minutes. IMPRESSION: 1. Negative hepatobiliary scan. There is normal filling of the gallbladder. 2. Patent common bile duct with normal visualization of the small bowel. RPTAT: AACC .Radha Yarbrough MD, Date Time Electronically viewed and signed by .Radha Yarbrough MD, on 09/21/2016 14:12 .L/
[2016-09-21] MEDS ORDERED: NITROGLYCERIN (SL) 0.4 MG TAB SL PRN (12:00)
[2016-09-21] MEDS ORDERED: LORAZEPAM 2 MG INJ IM PRN (12:14)
[2016-09-21] MEDS ORDERED: ASPIRIN 81 MG TAB PO ONE (12:30)
--- NOTE | 2016-09-21 12:59 | QN ---
Documentation Comment [id number] JACKY NEGRETE MD Sep 21, 2016 12:59
--- NOTE | 2016-09-21 13:41 | HP ---
DATE OF ADMISSION: 09/21/2016 HISTORY OF PRESENT ILLNESS: The patient is a 36-year-old male with a history of congestive heart fa ilure. The patient has a history of bronchitis, history of drug abuse, cardiomyopathy, ejection fra ction 20% to 25%, who presented to the ER with abdominal pain, left AMA and came back. The patient also noted to have leukocytosis cholecystitis and is being admitted for further management. The patient's blood pressure 111/74. WBC 22.9, sodium 139, potassium 3.6, BUN 16, creatinine 1.03, AST 111, ALT 134, alkaline phosphatase of 173. The patient is going to be monitored for further man agement. The patient's HIDA scan done in the ER shows negative hepatobiliary scan, normal filling of the gall bladder and common bile duct with of the small bowel. PAST MEDICAL HISTORY: Systolic heart failure, ejection fraction 20% to 25%. ALLERGIES: NEGATIVE. FAMILY HISTORY: Negative. SOCIAL HISTORY: Positive for drug abuse. MEDICATION HISTORY: 1. Aspirin. 2. Lorazepam. 3. Nitroglycerin. 4. Pepcid. 5. Bisacodyl. 6. Lasix. 7. Albuterol. 8. Morphine. 9. Zofran. 10. Zosyn. 11. Ambien REVIEW OF SYSTEMS: HEENT: Unremarkable. RESPIRATORY: Unremarkable. CARDIOVASCULAR: Complaining of chest pain. ABDOMEN: Abdominal pain, nausea. EXTREMITIES: Unremarkable. CENTRAL NERVOUS SYSTEM: Unremarkable. PHYSICAL EXAMINATION: GENERAL: The patient is awake, alert. VITAL SIGNS: Stable. HEAD: Atraumatic, normocephalic. Pupils equal, reactive to light. NECK: Supple. No JVD. LUNGS: Clear. CARDIOVASCULAR: S1, S2 are normal. ABDOMEN: Soft. Bowel sounds positive. No palpable mass or hepatosplenomegaly. No guarding, rebou nd tenderness. EXTREMITIES: There is no cyanosis, clubbing, or edema. CENTRAL NERVOUS SYSTEM: The patient is awake and alert with no focal deficit. LABORATORY DATA: As mentioned above. IMPRESSION: 1. Abdominal pain. 2. Abnormal LFT. 3. Drug abuse. 4. Low ejection fraction. PLAN: Give this patient clear liquid diet, have surgical consultation and cardiology consultation. Orders were done. Dictated By: JACKY HARRISON/VIC Conf#: [id number] [facility]#: [id number]
--- NOTE | 2016-09-21 15:42 | CONS ---
Date/Time of Note Date/Time of Note DATE: 09/21/16 TIME: 15:30 Assessment/Plan Assessment/Plan Additional Assessment/Plan Chest wall pain, resolved Abdominal pain, resolved Cardiomyopathy with ejection fraction 45% -Patient with left axillary pain with arm movements. No further discomfort. Otherwise denies exertional chest pain or shortness of breath. ECG without any significant abnormalities. Pain is elicited with palpation of chest wall. Symptoms appear musculoskeletal in origin. Echocardiogram done today with improvement in ejection fraction compared to December 2015. Given resolution of symptoms, symptoms elicited with left arm movement and negative EKG, no further inpatient cardiac workup needed at the current time. Consultation Date/Type/Reason Admit Date/Time Sep 21, 2016 at 04:42 Type of Consultation: cv Reason for Consultation Chest pain Hx of Present Illness This is a 36-year-old male with past medical history of cardiomyopathy, illicit drug use who presented with right upper quadrant abdominal pain off-and-on over the past few days. Symptoms have been associated with food intake. Patient initially left AMA and then returned. He currently denies any abdominal pain, nausea or vomiting. He was undergoing a HIDA scan and had his arms elevated for the procedure. Afterwards, he had some mild discomfort in his left axillary region. This was aching and sharp like, worse with movements of the left arm. Improved would bring in his arms down. There was no shortness of breath, chest pressure, nausea, dizziness, palpitations or vomiting. He currently denies any further symptoms. He otherwise denies exertional chest pain or shortness of breath. 12 point review of systems was performed with all pertinent positives and negatives mentioned above and all else is negative Past Medical History Cardiomyopathy Family History Significant Family History: no pertinent family hx Social History Smoking Status: Former smoker Drug Use: other (history of methamphetamine use) Exam/Review of Systems Vital Signs Vitals Vital Signs Date Time Temp Pulse Resp B/P Pulse Ox O2 Delivery O2 Flow Rate FiO2 09/21/16 11:35 97.7 70 20 111/74 100 Room Air Exam No apparent distress Constitutional: alert, oriented, well developed Head: normocephalic Neck: supple Respiratory: clear to auscultation, normal air movement, other Cardiovascular: other (S1 and S2 heard), regular rate and rhythm Gastrointestinal: bowel sounds, non-tender, other (no guarding), soft Musculoskeletal: other (pain with palpation left axillary region, pain is elicited this same pain patient complaining of) Extremities: other (no edema) Results Result Diagram: 09/21/16 0430 09/21/16 0430 Results 24 hrs Laboratory Tests Test 09/21/16 04:30 09/21/16 12:00 Activated Partial Thromboplast Time 32.4 Alanine Aminotransferase (ALT/SGPT) 134 H Albumin 3.6 Albumin/Globulin Ratio 0.97 Alkaline Phosphatase 173 H Anion Gap 18 H Aspartate Amino Transf (AST/SGOT) 111 #H Basophils # 0.1 Basophils % 0.2 Blood Urea Nitrogen 16 Calcium Level 9.3 Carbon Dioxide Level 30 Chloride Level 95 L Cholesterol Level 94 L Cholesterol/HDL Ratio 3.4 Creatinine 1.03 Direct Bilirubin 0.00 Eosinophils # 0.2 Eosinophils % 0.8 Globulin 3.70 H Glucose Level 100 HDL Cholesterol 27 L Hematocrit 42.9 Hemoglobin 14.5 INR International Normalized Ratio 1.12 Indirect Bilirubin 0.9 LDL Cholesterol, Calculated 53 Lymphocytes # 1.5 Lymphocytes % 6.4 L Mean Corpuscular Hemoglobin 30.4 Mean Corpuscular Hemoglobin Concent 33.7 Mean Corpuscular Volume 90.2 Mean Platelet Volume 7.9 Monocytes # 1.8 H Monocytes % 7.8 Neutrophils # 19.4 H Neutrophils % 84.8 H Nucleated Red Blood Cells # 0.0 Nucleated Red Blood Cells % 0.0 Platelet Count 353 Potassium Level 3.6 Prothrombin Time 14.4 H Prothrombin Time Ratio 1.1 Red Blood Count 4.76 Red Cell Distribution Width 13.3 Sodium Level 139 Total Bilirubin 0.9 Total Protein 7.3 Triglycerides Level 71 White Blood Count 22.9 H Troponin I < 0.010 Medications Medications Current Medications Sodium Chloride (1/2 NS) 1,000 ml @ 30 mls/hr Q24H IV Last administered on 09/21 05:00; Admin Dose 30 MLS/HR; Start 09/21/16 at 05:00 Albuterol/ Ipratropium (Duoneb) 3 ml Q2H PRN HHN SHORTNESS OF BREATH; Start 09/21/16 at 05:00 Morphine Sulfate (morphine) 2 mg Q4H PRN IV PAIN LEVEL 7-10 Last administered on 09/21/16 11:14; Admin Dose 2 MG; Start 09/21/16 at 05:00 Famotidine (Pepcid Iv) 20 mg Q12 IV Last administered on 09/21/16 08:30; Admin Dose 20 MG; Start 09/21/16 at 09:00 Ondansetron HCl 4 mg 4 mg Q4H PRN IV NAUSEA AND/OR VOMITING; Start 09/21/16 at 05:00 Piperacillin Sod/ Tazobactam Sod (Zosyn 3.375gm/ 100 ml (Pmx)) 100 ml @ 200 mls /hr Q8 IVPB Last administered on 09/21/16 14:07; Admin Dose 200 MLS/HR; Start 09/21/16 at 05:00 Zolpidem Tartrate (Ambien) 5 mg HS PRN PO INSOMNIA; Start 09/21/16 at 05:00 Docusate Sodium (Colace) 100 mg Q12 PRN PO CONSTIPATION; Start 09/21/16 at 05:00 Bisacodyl (Dulcolax) 5 mg DAILY PO ; Start 09/21/16 at 09:00 Bisacodyl (Dulcolax) 10 mg ONCE PRN PO CONSTIPATION; Start 09/21/16 at 05:00 Magnesium Hydroxide (Milk Of Mag) 30 ml DAILY PRN PO CONSTIPATION; Start at 05:00 Acetaminophen/ Hydrocodone Bitart ([place] (10/325)) 1 tab Q6H PRN PO PAIN; Start 09/21/16 at 05:00 Acetaminophen (Tylenol Tab) 650 mg Q6 PRN PO PAIN OR TEMP ABOVE 38C; Start 09/21 at 05:00 Nitroglycerin (Nitroglycerin (Sl Tab) 0.4 Mg) 1 tab Q5M PRN SL ANGINA; Start at 12:00 Lorazepam (Ativan) 1 mg Q6H PRN IM ANXIETY; Start 09/21/16 at 12:14 Procedures Procedures ECG done today at 12:19 PM demonstrates sinus bradycardia at 58 bpm, QRS 96 ms, no significant ischemic STT wave abnormalities Sawyer Sullivan DO Sep 21, 2016 15:40
--- NOTE | 2016-09-21 15:43 | RADRPT ---
Echocardiogram Report Patient Name: SOMMER AMOS Gender: Male Date: 1980 Study Date: 21-Sep-2016 Workers Compensation Examiner: Jason Marley [facility] Location: 5541 Ref. Physician: CELESTE NAVARRO Quality: Adequate Procedures: Transthoracic echocardiogram with complete 2D, M-Mode, and doppler examination. Indications: Chest Pain. 2D/M Mode Doppler Measurement Value Normal Ranges Measurement Value Normal Ranges LVIDd 2D 6.0 3.5 - 5.6 cm AV Peak Rocco 1.6 m/sec LVIDs 2D 4.5 2.1 - 4.1 cm AV Peak PG 9.7 mmHg LVPWd 2D 0.8 0.6 - 1.1 cm LVOT Peak Rocco 1.1 m/sec IVSd 2D 0.9 0.6 - 1.1 cm LVOT Peak PG 4.4 mmHg AoR Diam 2D 3.3 2.0 - 3.7 cm MV E Peak Rocco 0.7 m/sec EDV 2D 176.7 cm3 MV A Peak Rocco 0.6 m/sec ESV 2D 88.7 cm3 MV E/A 1.2 LA Dimen 2D 3.7 2.3 - 4.0 cm MV Decel Time 219 msec MV Decel Jenkins 3 MV E/A 1.2 TR Peak Rocco 2.1 m/sec TR Peak PG 17.3 mmHg RVSP 20.0 mmHg Findings Left Ventricle: Normal left ventricular wall thickness. Mild enlargement of left ventricle cavity. Mild left ventricular systolic dysfunction. Ejection fraction is visually estimated at 45 %. Right Ventricle: Normal right ventricular size. Normal right ventricular systolic function. Left Atrium: The left atrium is normal in size. Right Atrium: The right atrium is normal in size. Mitral Valve: Mitral valve leaflets appear mildly thickened. Mild mitral annular calcification. Trace mitral regurgitation. Aortic Valve: Normal appearance of the aortic valve. No significant aortic stenosis or insufficiency. Tricuspid Valve: Normal appearance of the tricuspid valve. Estimated peak PA systolic pressure 20 mmHg. There is trace tricuspid regurgitation. Pulmonic Valve: Normal pulmonic valve appearance. There is trace pulmonic regurgitation. Pericardium: Normal pericardium with no significant pericardial effusion. Aorta: Normal aortic root. IVC: Normal size and normal respiratory collapse consistent with normal right atrial pressure. Conclusions Normal left ventricular wall thickness. Mild enlargement of left ventricle cavity. Mild left ventricular systolic dysfunction. Ejection fraction is visually estimated at 45 %. Normal right ventricular size. Normal right ventricular systolic function. The left atrium is normal in size. The right atrium is normal in size. No significant valvular stenosis or regurgitation seen. Normal pericardium with no significant pericardial effusion. Electronically Signed By: Sawyer Sullivan 21-Sep-2016 15:41:41 -0800 Patient Name: SOMMER AMOS Study Date: 21-Sep-2016 [id number]
--- NOTE | 2016-09-22 12:15 | RADRPT ---
Vent Rate: 58 bpm RR Interval: 0 msec TN Interval: 168 msec QRS Duration: 96 msec QT Interval: 396 msec QTC Interval: 388 msec P-R-T [place]: 62 - -9 - 37 degrees Sinus bradycardia TW abnormality, consider anterior ischemia Abnormal ECG Electronically Signed By: Stan Cote [id number]
== END 2016-09-21 16:19 | disposition left against medical advice (07) | DRG 445 ==
LOC: E/R 03:48 → MS2 04:42 → MS4 12:45
PROVIDERS: ADMIT Internal Medicine Nephrology; ATTEND Internal Medicine Nephrology
DX: K81.9 Cholecystitis, unspecified (principal); I50.22 Chronic systolic (congestive) heart failure
CPT/HCPCS: 78226; 80053; 80061; 84484; 85025; 85610; 85730; 93005; 93306; A9537; J2270; J2405; J2543

== ENCOUNTER 2017-12-15 04:13 | Emergency (ER) | END 2017-12-15 06:53 | disposition left against medical advice (07) ==

== ENCOUNTER 2018-10-02 09:50 | Observation (INO) | payer OTHER ==
[~2018-10-02] VITALS: Ht 175.3 cm; Wt 119.0 kg
[~2018-10-02 09:50] MED LIST changes: -ASPI-664 PO; +ASPI-817 PO; +HYDR-3980 PO; -HYDR-902 PO
[2018-10-02] MEDS ORDERED: ASPIRIN 325 MG TAB PO STA (10:14)
--- NOTE | 2018-10-02 11:07 | ERD ---
ER Documentation Chief Complaint Chief Complaint pressure like pain @ left chest radiates to left arm; sob HPI 38-year-old male presents the emergency department complaining of chest pain. 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 He states over the last 24 hours, he had a non-provoked, nonspecific chest wall discomfort in the anterior part of his chest associated with shortness of breath. He feels sweaty and diaphoretic. He reports no palpitations. He reports no cough or sputum production. Currently his pain is reported as mild to moderate. ROS All systems reviewed and are negative except as per history of present illness. Medications Home Meds Active Scripts Hydrocodone/Acetaminophen ([place] 10-325 Tablet) 1 Each Tablet, 1 TAB PO Q6H PRN for PAIN, #20 TAB Prov:MARK KHAN DO 09/17/16 Potassium Chloride* (K-Dur*) 20 Meq Tab.prt.sr, 20 MEQ PO DAILY, #60 TAB.SA Prov:GINNA BRAVO MD 12/20/15 Furosemide (Lasix) 20 Mg Tab, 20 MG PO BID for CHF, #120 TAB Prov:GINNA BRAVO MD 12/20/15 Aspirin* (Aspirin* EC) 81 Mg Tablet.dr, 81 MG PO DAILY, #100 TAB Prov:GINNA BRAVO MD 12/20/15 Reported Medications Carvedilol* (Coreg CR*) 20 Mg Capsr, 20 MG PO DAILY, #30 CAP 10/02/18 Discontinued Scripts Ciprofloxacin Hcl* (Ciprofloxacin Hcl*) 500 Mg Tablet, 500 MG PO BID for 7 Days, TAB Prov:MARK KHAN DO 09/17/16 Ondansetron (Ondansetron Odt) 4 Mg Tab.rapdis, 4 MG PO Q6H PRN for NAUSEA AND/OR VOMITING, #10 TAB Prov:MARK KHAN DO 09/17/16 Dicyclomine Hcl* (Bentyl*) 20 Mg Tablet, 20 MG PO QID, #30 TAB Prov:MARK KHAN DO 09/17/16 Levofloxacin* (Levofloxacin*) 500 Mg Tablet, 500 MG PO DAILY for acute bronchitis , #5 TAB Prov:GINNA BRAVO MD 12/20/15 Allergies Allergies: Coded Allergies: No Known Allergy (Unverified , 10/02/18) PMhx/Soc History of Surgery: No Anesthesia Reaction: No Hx Neurological Disorder: No Hx Respiratory Disorders: No Hx Cardiac Disorders: Yes (CHF, HTN, HIGH CHOLESTEROL) Hx Psychiatric Problems: No Hx Miscellaneous Medical Probl: No Hx Alcohol Use: No Hx Substance Use: Yes (MARIJUANA) Hx Tobacco Use: Yes Smoking Status: Former smoker FmHx Noncontributory for chief complaint Physical Exam Vitals Vital Signs Date Temp Pulse Resp B/P (MAP) Pulse Ox O2 O2 Flow FiO2 Time Delivery Rate 10/02/18 98.6 60 19 129/84 98 09:51 (99) Physical Exam GENERAL: Obese, diaphoretic male HEENT: Pupils equal, round, and reactive to light. EOMI. There is no scleral icterus. NECK: C-spine is soft and supple, there is no meningismus. There is no cervical lymphadenopathy. LUNGS: Clear to auscultation bilaterally. There are no rales, wheezes or rhonchi. HEART: Regular rate and rhythm, no murmurs, clicks, rubs or gallops. ABDOMEN: Soft, non-tender, non-distended. There are bowel sounds in all four quadrants. No rebound or guarding. EXTREMITIES: There is no peripheral cyanosis or edema. No focal swelling or erythema. NEURO: The patient moves all four extremities with 5/5 strength. Cranial nerves II - XII are intact. Normal gait. Alert and oriented SKIN: There is no apparent rash or petechiae. HEME/LYMPHATIC: There is no evidence of excessive bruising or lymphedema. PSYCHIATRIC: The patient does not appear anxious or depressed. Result Diagram: 10/02/18 1010 10/02/18 1010 Results 24 hrs Laboratory Tests Test 10/02/18 10:10 White Blood Count 11.6 10^3/ul Red Blood Count 5.38 10^6/ul Hemoglobin 15.5 g/dl Hematocrit 48.0 % Mean Corpuscular Volume 89.2 fl Mean Corpuscular Hemoglobin 28.8 pg Mean Corpuscular Hemoglobin Concent 32.3 g/dl Red Cell Distribution Width 13.3 % Platelet Count 291 10^3/UL Mean Platelet Volume 9.9 fl Immature Granulocytes % 0.300 % Neutrophils % 68.4 % Lymphocytes % 21.3 % Monocytes % 8.7 % Eosinophils % 0.7 % Basophils % 0.6 % Nucleated Red Blood Cells % 0.0 /100WBC Immature Granulocytes # 0.040 10^3/ul Neutrophils # 7.9 10^3/ul Lymphocytes # 2.5 10^3/ul Monocytes # 1.0 10^3/ul Eosinophils # 0.1 10^3/ul Basophils # 0.1 10^3/ul Nucleated Red Blood Cells # 0.0 10^3/ul Sodium Level 144 mmol/L Potassium Level 4.4 mmol/L Chloride Level 103 mmol/L Carbon Dioxide Level 30 mmol/L Anion Gap 11 Blood Urea Nitrogen 16 mg/dl Creatinine 1.09 mg/dl Est Glomerular Filtrat Rate mL/min > 60 mL/min Glucose Level 139 mg/dl Calcium Level 9.1 mg/dl Total Bilirubin 0.6 mg/dl Direct Bilirubin 0.00 mg/dl Indirect Bilirubin 0.6 mg/dl Aspartate Amino Transf (AST/SGOT) 32 IU/L Alanine Aminotransferase (ALT/SGPT) 50 IU/L Alkaline Phosphatase 62 IU/L Troponin I 0.096 ng/ml B-Type Natriuretic Peptide 6270 PG/ML Total Protein 6.7 g/dl Albumin 3.9 g/dl Globulin 2.80 g/dl Albumin/Globulin Ratio 1.39 Current Medications Medications Dose Sig/Braxton Start Time Status Last (Trade) Ordered Route PRN Stop Time Admin Dose Reason Admin Aspirin 325 mg ONCE STAT 10/02/18 DC (Aspirin) PO 10:14 10/02/18 10:15 Furosemide 40 mg ONCE ONCE 10/02/18 (Lasix) IV 11:30 10/02/18 11:31 Procedures/MDM Patient was taken to a room, seen and evaluated. Comfort measures were initiated. Diagnostic tests were ordered and reviewed. 3 LEAD RHYTHM STRIP: Sinus tachycardia resolving with normal sinus rhythm EK lead EKG reviewed by myself: Sinus tachycardia Normal [place] and intervals Nonspecific ST and T wave changes without ST elevation Impression: Nonspecific EKG RADIOLOGY: Reviewed with the radiologist CONSULTATION: Dr. Leo was notified for admission REEVALUATION: 1105: Diagnostic tests were appreciated and discussed with the patient. He looked much more comfortable and less diaphoretic. Decision was made for admission MEDICAL DECISION MAKIN-year-old male with a known existing cardiomyopathy secondary to drug use presents diaphoretic with chest pain. EKG is abnormal and first troponin is reassuring. He has evidence of mild congestive heart failure concurrently. Drug screen is pending. Patient will be admitted for further observation, serial troponins and further diuresis and observation. Departure Diagnosis: Primary Impression: CHF (congestive heart failure) Additional Impression: Chest pain Condition: RIKA Moulton Oct 02, 2018 11:07
[2018-10-02] MEDS ORDERED: CORE20CR PO (11:11)
[2018-10-02] MEDS ORDERED: FUROSEMIDE 40 MG INJ IV ONE (11:30)
[2018-10-02 13:47] VITALS: PULSE 107
[2018-10-02] MEDS ORDERED: ONDANSETRON 4 MG INJ IV PRN (14:00)
[2018-10-02] MEDS ORDERED: DOCUSATE SODIUM 100 MG CAP PO PRN (14:00)
[2018-10-02] MEDS ORDERED: ACETAMINOPHEN 325 MG TAB PO PRN (14:00)
[2018-10-02] MEDS ORDERED: NACL 0.9% 3 ML SYG IV SCH (14:00)
[2018-10-02] MEDS: POTASSIUM CHLORIDE (SR) 20 MEQ TAB PO SCH (14:43)
[2018-10-02] MEDS: CARvedilol (CR) 10 MG CAP PO SCH (14:45)
[2018-10-02 14:59] VITALS: Ht 175.3 cm; Wt 119.0 kg
[2018-10-02] MEDS ORDERED: NITROGLYCERIN (SL) 0.4 MG TAB SL PRN (15:00)
[2018-10-02] MEDS ORDERED: CARvedilol (CR) 20 MG CAP PO SCH (15:30)
[2018-10-02] MEDS ORDERED: CARvedilol (CR) 10 MG CAP PO SCH (15:30)
[2018-10-02 15:33] VITALS: BP 124/82; PULSE 100; RESP 18
--- NOTE | 2018-10-02 15:38 | RADRPT ---
Echocardiogram Report Patient Name: SOMMER AMOS Gender: Male Date: 1980 Study Date: 02-Oct-2018 Maintenance Chief: Jason Marley [facility] Location: [id number] Ref. Physician: GINI JUNIOR Quality: Technically Difficult Study Procedures: Transthoracic echocardiogram with complete 2D, M-Mode, and doppler examination. Indications: Congestive Heart Failure. 2D/M Mode Doppler Measurement Value Normal Ranges Measurement Value Normal Ranges LVIDd 2D 6.9 3.5 - 5.6 cm AV Peak Rocco 1.1 m/sec LVIDs 2D 6.1 2.1 - 4.1 cm AV Peak PG 5.0 mmHg FS 2D 12.7 % LVOT Peak Rocco 0.4 m/sec LVPWd 2D 1.2 0.6 - 1.1 cm LVOT Peak PG 1.0 mmHg IVSd 2D 1.2 0.6 - 1.1 cm MV E Peak Rocco 0.9 m/sec IVS/LVPW 2D 1.0 MV A Peak Rocco 0.5 m/sec AoR Diam 2D 2.9 2.0 - 3.7 cm MV E/A 1.9 LA/Ao 2D 2 0 - 1 MV Decel Time 70 msec EDV 2D 333.0 cm3 MV E/A 1.9 ESV 2D 221.0 cm3 TR Peak Rocco 2.0 m/sec LA Dimen 2D 4.4 2.3 - 4.0 cm TR Peak PG 16.0 mmHg RVSP 24.0 mmHg RA Pressure 8.0 Findings Left Ventricle: Normal left ventricular cavity size. Mild concentric left ventricular hypertrophy. Severe enlargement of left ventricle cavity. Severe global left ventricular systolic dysfunction. Ejection fraction is visually estimated at 25 %. Right Ventricle: Normal right ventricular size. Normal right ventricular systolic function. Left Atrium: There is mild enlargement of left atrium. Right Atrium: The right atrium is normal in size. Mitral Valve: Normal appearance and function of the mitral valve with trace physiologic regurgitation. Aortic Valve: Normal appearance of the aortic valve. No significant aortic stenosis or insufficiency. Tricuspid Valve: Normal appearance of the tricuspid valve. Estimated peak PA systolic pressure 24 mmHg. There is trace tricuspid regurgitation. Pulmonic Valve: Normal pulmonic valve appearance. There is trace pulmonic regurgitation. Pericardium: Trivial pericardial effusion. Aorta: Normal aortic root. IVC: Dilated IVC with respiratory collapse consistent with elevated right atrial pressure. Conclusions 1.Normal left ventricular cavity size. Mild concentric left ventricular hypertrophy. Severe enlargement of left ventricle cavity. Severe global left ventricular systolic dysfunction. Ejection fraction is visually estimated at 25 %. 2.Normal appearance and function of the mitral valve with trace physiologic regurgitation. 3.Normal appearance of the tricuspid valve. Estimated peak PA systolic pressure 24 mmHg. There is trace tricuspid regurgitation. 4.Normal pulmonic valve appearance. There is trace pulmonic regurgitation. 5.Trivial pericardial effusion. Electronically Signed By: Rufino Sherwood 02-Oct-2018 15:38:00 -0800 Patient Name: SOMMER AMOS Study Date: 02-Oct-2018 [id number]
[2018-10-02 16:00] VITALS: PULSE 91
--- NOTE | 2018-10-02 16:35 | QN ---
Documentation Comment H and p done GINI JUNIOR MD Oct 02, 2018 16:35
[2018-10-02] MEDS: FUROSEMIDE 20 MG INJ IV SCH (17:35)
--- NOTE | 2018-10-02 18:13 | HP ---
DATE OF ADMISSION: 10/02/2018 REASON FOR ADMISSION: Chest pain and shortness of breath. HISTORY OF PRESENT ILLNESS: This is a 38-year-old male with past medical history of amphetamine and cocaine use and history of congestive heart failure diagnosed in 2016 with an EF of 20% to 25% who pr esented to the emergency department complaining of chest pain for 1 day and shortness of breath for t he last few days. According to the patient, he has been seeing a forensic analyst as an outpatient on a 6-month basis. For the last few days, he had been walking only 10 to 15 steps and has been getting s hort of breath. Today, he was walking with his dog and all of a sudden, he felt some chest pain and some chest soreness that lasted for a few seconds radiating to the left arm that made him come to the emergency department. According to the patient, he has been taking 4 medications at home, which he states Coreg 20, aspirin, Lasix 20, and potassium and [place]. The patient is still using cocaine. St opped amphetamines many years ago. PAST MEDICAL HISTORY: 1. History of congestive heart failure, nonischemic with EF of 20 to 25%. 2. Hypertension. 3. Drug abuse. 4. History of bronchitis. ALLERGIES: NONE. PAST SURGICAL HISTORY: None. MEDICATIONS TAKING AT HOME: 1. Coreg. 2. Aspirin 81. 3. [place]. 4. Lasix 20 b.i.d. 5. Potassium 20 every day. SOCIAL HISTORY: Still has been using cocaine and marijuana. Denies any amphetamine use. Lives with his father. FAMILY HISTORY: Significant for grandfather who because of heart failure and grandmother also d ied of heart failure. REVIEW OF SYSTEMS: The patient complained of some shortness of breath on and off for the past couple of days, also some exertional chest pain. Denies any orthopnea, PND, or lower extremity edema. Den ies any headache, any blurry vision, any hematemesis, any melena, or any bright red per rectum. Aleksander es any focal neurological deficits. PHYSICAL EXAMINATION: VITAL SIGNS: Currently, blood pressure 124/82, afebrile, heart rate of 100, and saturating 98%. GENERAL: Patient is awake, alert, and oriented. Does not appear to be in any acute distress. HEENT: Pupils equal, round, and reactive to light. NECK: JVD appreciated. HEART: Regular rate and rhythm. LUNGS: Some decreased breath sounds bilaterally. ABDOMEN: Soft, nontender, and nondistended. Positive normoactive bowel sounds. Obese. EXTREMITIES: There is no edema. DIAGNOSTIC DATA: Showed white count 11.6. BMP within normal limit. BNP of 6,270. Chest x-ray show ed some mild cardiomegaly with upper vasculature appearing normal. EKG showed left sinus tachycardia and some ST-T wave changes in V4, V5, and V6. ASSESSMENT: This is a 38-year-old male who presented with: 1. Chest pain, need to rule out acute coronary syndrome. 2. History of nonischemic cardiomyopathy due to drug abuse with EF of 20% to 25%. 3. Acute on chronic systolic congestive heart failure. 4. Drug use. 5. Elevated BNP. 6. Obesity. 7. Hypertension. PLAN: At this period of time, the patient is admitted to telemetry. We will continue the patient on aspirin, IV Lasix, Coreg, and AKASH. We will get serial EKGs and troponin. We will also repeat an ec ho. Cardiology consultation has been requested. Rest of the treatment depend on the patient's hospi talization course. Dictated By: GINI JUNIOR RB/VIC Conf#: [id number] DID#: [id number] CC: CHANEL BEE MD; GINNA BRAVO MD; GINI JUNIOR; KAYLEEN SCHAEFER MD; GABRIELLE Painter;*End*
[2018-10-02 20:00] VITALS: PULSE 79
[2018-10-02 20:42] VITALS: BP 120/78; PULSE 96; RESP 18
[2018-10-02] MEDS: FAMOTIDINE 20 MG INJ IV SCH (20:48)
[2018-10-02] MEDS: ISOSORBIDE DINITRATE 10 MG TAB PO SCH (20:48)
[2018-10-03] VITALS (13 sets, daily range): BP systolic 91–120; BP diastolic 53–73; PULSE 66–99; RESP 16–18
[2018-10-03] MEDS: FUROSEMIDE 20 MG INJ IV SCH (06:46)
--- NOTE | 2018-10-03 08:08 | CONS ---
DATE OF ADMISSION: 10/02/2018 DATE OF CONSULTATION: 10/02/2018 REASON FOR CONSULTATION: Chest pain, cardiomyopathy, shortness of breath, congestive heart failure, rule out acute coronary syndrome. REQUESTING PHYSICIAN: Jazmin Leo MD HISTORY OF PRESENT ILLNESS: Mr. Sparks is a 38-year-old male with a history of hypertension, dyslipidemia, polysubstance abuse, previously with methamphetamines, most recently with marijuana, who presents with 2 days of substernal chest pain described as a dull ache in his left axilla radiating to the left arm at rest and associated dyspnea on exertion with climbing a flight of stairs. The patient denies significant lower extremity edema, orthopnea. Upon arrival, temperature of 98.6, blood pressure 129/84, pulse 60, respiratory 19, satting 98%. LABS: The patient's labs were notable for sodium 144, potassium 4.4, creatinine of 1.0, BUN 16, AST 32, ALT 50. BNP of 6270. White blood count 11.6, hemoglobin of 15.5, platelet count 291. The patient underwent a chest x-ray revealing mild cardiomegaly with pulmonary vascular congestion The patient's electrocardiogram revealed sinus tachycardia, rate of 112 with left axis deviation. No significant AV block, poor R-wave progression across the anterior leads and nonspecific ST abnormalities diffusely. The patient subsequently has been admitted to the floor and since admit to the floor, continues to have chest pain. PAST MEDICAL HISTORY: As above in HPI. MEDICATIONS CURRENTLY IN HOSPITAL: 1. Aspirin 81 mg 1 tab p.o. daily. 2. Pepcid 20 mg q.12h. 3. Lovenox 40 every day. 4. Carvedilol 20 mg daily. 5. Topicort daily 5. Zofran p.r.n. 6. Tylenol p.r.n. ALLERGIES: No known drug allergies. SOCIAL HISTORY: History of polysubstance abuse, history of tobacco intake, per patient has quit both but does use marijuana. REVIEW OF SYSTEMS: As above in HPI. CONSTITUTIONAL: No fevers, chills. PULMONARY: Shortness of breath. CARDIOVASCULAR: Heart failure, cardiomyopathy. GASTROINTESTINAL: No vomiting. GENITOURINARY: No hematuria. MUSCULOSKELETAL: Degenerative joint disease. PSYCHIATRIC: The patient has depression. NEUROLOGIC: No documented CVA. ENDOCRINE: No documented DM. PHYSICAL EXAMINATION: VITAL SIGNS: Temperature of 98.6, blood pressure 125/95, pulse 104, respiratory 19, satting 97% on room air. GENERAL: The patient is alert, awake, no acute distress. NECK: JVP approximately 8 to 9 cm of water. CHEST: Fair air movement throughout. HEART: Regular rate and rhythm. Normal S1, S2, 1/6 systolic heart murmur, nondisplaced PMI. ABDOMEN: Positive bowel sounds, soft. EXTREMITIES: No significant pitting edema, 1+ pulses bilateral posterior tibial. LABORATORIES: As above in HPI with no further labs for my review at this time. IMAGING STUDIES: As above in HPI. No further imaging studies for my review at this time. ECG: No further electrocardiograms for my review at this time. IMPRESSION: 1. Chest pain, assess for acute coronary syndrome with somewhat atypical symptomatology for cardiac etiology at this time but could be in the setting of drug use and associated endothelial dysfunction . 2. History of cardiomyopathy with severely depressed left ventricular ejection fraction, last known to be improved to 45% by echo 09/21/2016, previously it had been 25%. 3. Congestive heart failure, systolic, likely acute on chronic. 4. Tachycardia. 5. Diaphoresis. 6. History of polysubstance abuse with increased BNP consistent with patient's congestive heart failure. RECOMMENDATIONS: 1. At this time, would maintain patient on telemetry monitoring to follow rhythm and rates closely. 2. Complete the patient's rule out for myocardial infarction. The patient's chest pain is not due to acute coronary syndrome, acute myocardial infarction, to put the patient on standing gentle Lasix diuresis and continue the patient's Coreg and initiate patient on afterload reduction with an AKASH inhibitor. 3. We will reassess patient's ejection fraction by 2D echo and would check a tox screen to assess for any ongoing usage of substances. 4. Consider addition of oral nitrates for chest pains. Thank you for allowing me to take part in the care of this patient. I will continue to follow very closely with you as further recommendations will be made as the patient progresses through his inpatient hospital clinical course. Dictated By: CHANEL FABIAN/VIC Conf#: [id number] DID#: [id number] CC: JAZMIN LEO;*Renu* EDU
[2018-10-03] MEDS ORDERED: INFLUENZA VIRUS VACCINE 0.5 ML (DISPENSING) IM* ONE (09:00)
[2018-10-03] MEDS: POTASSIUM CHLORIDE (SR) 20 MEQ TAB PO SCH (09:12)
[2018-10-03] MEDS: ASPIRIN (EC) 81 MG TAB PO SCH (09:12)
[2018-10-03] MEDS: ISOSORBIDE DINITRATE 10 MG TAB PO SCH ×3 (09:13→21:11)
[2018-10-03] MEDS: BENAZEPRIL 5 MG TAB PO SCH (09:13)
[2018-10-03] MEDS: CARvedilol (CR) 10 MG CAP PO SCH (09:14)
[2018-10-03] MEDS: ENOXAPARIN 40 MG/0.4 ML SYG SC SCH (09:28)
[2018-10-03] MEDS: FAMOTIDINE 20 MG INJ IV SCH ×2 (09:35→21:11)
--- NOTE | 2018-10-03 11:24 | PN ---
Date/Time of Note Date/Time of Note DATE: 10/03/18 TIME: 11:20 Assessment/Plan VTE Prophylaxis Risk score (from [facility] [place])>0 risk: 2 SCD applied (from [facility] [place]): No SCD contraindicated: low risk/ambulating Pharmacological prophylaxis: NA/contraindicated Pharm contraindication: low risk/ambulating Lines/Catheters IV Catheter Type (from [facility] Saline Lock Urinary Cath still in place: No Assessment/Plan Hospital Course 38-year-old male who presented with: 1. Chest pain, need to rule out acute coronary syndrome. 2. 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 Acute on chronic systolic congestive heart failure. 4. Drug use. 5. Elevated BNP. 6. Obesity. 7. Hypertension. 8 mild eelevated CR Plan -Doing well - EF 25% - Cw medical management - trop neg - check T3, T4 - cw lasix Result Diagram: 10/02/18 1010 10/03/18 0526 Results 24hrs Laboratory Tests Test 10/02/18 14:22 10/02/18 19:39 10/03/18 05:26 Creatine Kinase 79 73 Creatine Kinase Index 1.4 1.4 Creatinine Kinase MB (Mass) 1.10 1.05 Troponin I 0.090 0.078 Sodium Level 137 Potassium Level 4.5 Chloride Level 100 Carbon Dioxide Level 31 Anion Gap 6 Blood Urea Nitrogen 15 Creatinine 1.26 H Est Glomerular Filtrat Rate mL/min > 60 Glucose Level 129 Calcium Level 9.5 Phosphorus Level 4.1 Magnesium Level 1.8 Triglycerides Level 116 Cholesterol Level 111 LDL Cholesterol, Calculated 56 HDL Cholesterol 32 Cholesterol/HDL Ratio 3.4 Thyroid Stimulating Hormone (TSH) 0.322 L Subjective 24 Hr Interval Summary Free Text/Dictation Feels better Deneis any cp/sob ambulating Exam/Review of Systems Vital Signs Vitals Vital Signs Date Temp Pulse Resp B/P (MAP) Pulse Ox O2 O2 Flow FiO2 Time Delivery Rate 10/03/18 98.2 84 18 91/53 (66) 94 11:15 10/03/18 Room Air 05:00 Intake and Output 10/02/18 10/02/18 10/03/18 1515:00 23:00 07:00 IntakeIntake Total 500 ml 500 ml BalanceBalance 500 ml 500 ml Exam GENERAL: Patient is awake, alert, and oriented. Does not appear to be in any acute distress. HEENT: Pupils equal, round, and reactive to light. NECK: JVD appreciated. HEART: Regular rate and rhythm. LUNGS: Some decreased breath sounds bilaterally. ABDOMEN: Soft, nontender, and nondistended. Positive normoactive bowel sounds. Obese. EXTREMITIES: There is no edema. Medications Medications Current Medications IV Flush (NS 3 ml) 3 ml PER PROTOCOL IV ; Start 10/02/18 at 14:00 Ondansetron HCl (Zofran Inj) 4 mg Q6H PRN IV NAUSEA AND/OR VOMITING; Start 10/02/18 at 14:00 Acetaminophen (Tylenol Tab) 650 mg Q6H PRN PO PAIN LEVEL 1-3 OR FEVER; Start 10/02/18 at 14:00 Docusate Sodium (Colace) 100 mg Q12H PRN PO CONSTIPATION; Start 10/02/18 at 14:00 Famotidine (Pepcid Iv) 20 mg Q12 IV Last administered on 10/03/18at 09:35; Admin Dose 20 MG; Start 10/02/18 at 21:00 Enoxaparin Sodium (Lovenox) 40 mg DAILY SC Last administered on 10/03/18at 09:28; Admin Dose 40 MG; Start 10/03/18 at 09:00 Aspirin (Halfprin) 81 mg DAILY PO Last administered on 10/03/18at 09:12; Admin Dose 81 MG; Start 10/03/18 at 09:00 Potassium Chloride (Klor-Con 20) 20 meq DAILY PO Last administered on 10/03/18at 09:12; Admin Dose 20 MEQ; Start 10/02/18 at 14:30 Carvedilol (Coreg Cr) 20 mg DAILY PO Last administered on 10/03/18at 09:14; Admin Dose 20 MG; Start 10/02/18 at 15:30 Furosemide (Lasix) 20 mg BID DIURETICS IV Last administered on 10/03/18at 06:46; Admin Dose 20 MG; Start 10/02/18 at 18:00 Benazepril HCl (Lotensin) 5 mg DAILY PO Last administered on 10/03/18at 09:13; Admin Dose 5 MG; Start 10/03/18 at 09:00 Isosorbide Dinitrate (Isordil) 10 mg TID PO Last administered on 10/03/18at 09:13; Admin Dose 10 MG; Start 10/02/18 at 21:00 Nitroglycerin (Nitroglycerin (Sl Tab) 0.4 Mg) 1 tab Q5M PRN SL ANGINA; Start 10/02/18 at 15:00 GINI JUNIOR MD Oct 03, 2018 11:24
--- NOTE | 2018-10-03 12:56 | CONS ---
Date/Time of Note Date/Time of Note DATE: 10/03/18 TIME: 12:51 Assessment/Plan Assessment/Plan Hospital Course IMPRESSION: 1. Chest pain, assess for acute coronary syndrome with somewhat atypical symptomatology for cardiac etiology at this time but could be in the setting of drug use is also due to endothelial dysfunction; therefore could be cardiac .- neg trop x 3. EF 25% by echo this admit 2. History of cardiomyopathy with severely depressed left ventricular ejection fraction, last known to be improved to 45% by echo 09/21/2016, previously it had been 25%. 3. Congestive heart failure, systolic, likely acute on chronic. 4. Tachycardia. 5. Diaphoresis. 6. History of polysubstance abuse with increased BNP consistent with patient's congestive heart failure. Recc: -Tele -Continue low dose coreg/benazepril as tolerated -Isordil as tolerated only -Daily lasix and follow volume status clsoely -check FreeT4 to further assess current thyroid state -if going to remain in house will consider stress testing for tomorrow Result Diagram: 10/02/18 1010 10/03/18 0526 Results 24hrs Laboratory Tests Test 10/02/18 14:22 10/02/18 19:39 10/03/18 05:26 Creatine Kinase 79 73 Creatine Kinase Index 1.4 1.4 Creatinine Kinase MB (Mass) 1.10 1.05 Troponin I 0.090 0.078 Sodium Level 137 Potassium Level 4.5 Chloride Level 100 Carbon Dioxide Level 31 Anion Gap 6 Blood Urea Nitrogen 15 Creatinine 1.26 H Est Glomerular Filtrat Rate mL/min > 60 Glucose Level 129 Calcium Level 9.5 Phosphorus Level 4.1 Magnesium Level 1.8 Triglycerides Level 116 Cholesterol Level 111 LDL Cholesterol, Calculated 56 HDL Cholesterol 32 Cholesterol/HDL Ratio 3.4 Thyroid Stimulating Hormone (TSH) 0.322 L Consultation Date/Type/Reason Admit Date/Time Oct 02, 2018 at 11:11 Initial Consult Date 10/02/18 Type of Consult cardiology Reason for Consultation chest pain/ cardiomyopathy Requesting Provider: GINI JUNIOR MD Exam/Review of Systems Vital Signs Vitals Vital Signs Date Temp Pulse Resp B/P (MAP) Pulse Ox O2 O2 Flow FiO2 Time Delivery Rate 10/03/18 98.2 84 18 91/53 (66) 94 11:15 1/17/19 Room Air 05:00 Intake and Output 10/02/18 10/02/18 10/03/18 1414:59 22:59 06:59 IntakeIntake Total 500 ml 500 ml BalanceBalance 500 ml 500 ml Exam Review of Systems: CONSTITUTIONAL: No fevers, chills. PULMONARY: No sob CARDIOVASCULAR:improved chest pain GASTROINTESTINAL: No nausea/vomiting. GENITOURINARY: No hematuria/dysuria. MUSCULOSKELETAL: No myagias/arthalgias. PSYCHIATRIC: The patient denies depression. NEUROLOGIC: No weakness Constitutional: other (sleeping, arousable) Psych: no complaints Head: normocephalic ENMT: mucosa pink and moist Neck: supple, jvd (9 cm water) Respiratory: diminished breath sounds (at bases/B) Cardiovascular: regular rate and rhythm Gastrointestinal: soft, non-tender Musculoskeletal: muscle tone (normal) Extremities: edema (trace/B) Neurological: other (No focal deficits) Medications Medications Current Medications IV Flush (NS 3 ml) 3 ml PER PROTOCOL IV ; Start 10/02/18 at 14:00 Ondansetron HCl (Zofran Inj) 4 mg Q6H PRN IV NAUSEA AND/OR VOMITING; Start 10/02/18 at 14:00 Acetaminophen (Tylenol Tab) 650 mg Q6H PRN PO PAIN LEVEL 1-3 OR FEVER; Start 10/02/18 at 14:00 Docusate Sodium (Colace) 100 mg Q12H PRN PO CONSTIPATION; Start 10/02/18 at 14:00 Famotidine (Pepcid Iv) 20 mg Q12 IV Last administered on 10/03/18at 09:35; Admin Dose 20 MG; Start 10/02/18 at 21:00 Enoxaparin Sodium (Lovenox) 40 mg DAILY SC Last administered on 10/03/18at 09:28; Admin Dose 40 MG; Start 10/03/18 at 09:00 Aspirin (Halfprin) 81 mg DAILY PO Last administered on 10/03/18at 09:12; Admin Dose 81 MG; Start 10/03/18 at 09:00 Potassium Chloride (Klor-Con 20) 20 meq DAILY PO Last administered on 10/03/18at 09:12; Admin Dose 20 MEQ; Start 10/02/18 at 14:30 Benazepril HCl (Lotensin) 5 mg DAILY PO Last administered on 10/03/18at 09:13; Admin Dose 5 MG; Start 10/03/18 at 09:00 Isosorbide Dinitrate (Isordil) 10 mg TID PO Last administered on 10/03/18at 09:13; Admin Dose 10 MG; Start 10/02/18 at 21:00 Nitroglycerin (Nitroglycerin (Sl Tab) 0.4 Mg) 1 tab Q5M PRN SL ANGINA; Start 10/02/18 at 15:00 Carvedilol (Coreg) 3.125 mg BID PO ; Start 10/04/18 at 09:00 Furosemide (Lasix) 20 mg DAILY IV ; Start 10/04/18 at 09:00 CHANEL BEE Oct 03, 2018 12:56
--- NOTE | 2018-10-03 21:50 | RADRPT ---
Vent Rate: 73 bpm RR Interval: 0 msec LA Interval: 190 msec QRS Duration: 100 msec QT Interval: 452 msec QTC Interval: 497 msec P-R-T [place]: 63 - -59 - 70 degrees Normal sinus rhythm Possible Left atrial enlargement Left anterior fascicular block Prolonged QT Abnormal ECG Electronically Signed By: Sawyer Sullivan [id number]
[2018-10-04 03:28] VITALS: BP 106/74; PULSE 90; RESP 18
[2018-10-04 07:39] VITALS: BP 99/66; PULSE 79; RESP 18
[2018-10-04] MEDS: POTASSIUM CHLORIDE (SR) 20 MEQ TAB PO SCH (09:00)
[2018-10-04] MEDS: ENOXAPARIN 40 MG/0.4 ML SYG SC SCH (09:00)
[2018-10-04] MEDS: ISOSORBIDE DINITRATE 10 MG TAB PO SCH ×2 (09:00→13:00)
[2018-10-04] MEDS: FAMOTIDINE 20 MG INJ IV SCH (09:00)
[2018-10-04] MEDS: BENAZEPRIL 5 MG TAB PO SCH (09:00)
[2018-10-04] MEDS ORDERED: FUROSEMIDE 20 MG INJ IV SCH (09:00)
[2018-10-04] MEDS: ASPIRIN (EC) 81 MG TAB PO SCH (09:39)
[2018-10-04 12:00] VITALS: PULSE 97
[2018-10-04] MEDS ORDERED: REGADENOSON 0.4 MG/5 ML SYG ONE (12:26)
--- NOTE | 2018-10-04 12:34 | CONS ---
Date/Time of Note Date/Time of Note DATE: 10/04/18 TIME: 12:31 Assessment/Plan Assessment/Plan Hospital Course IMPRESSION: 1. Chest pain, assess for acute coronary syndrome with somewhat atypical symptomatology for cardiac etiology at this time but could be in the setting of drug use is also due to endothelial dysfunction; therefore could be cardiac .- neg trop x 3. EF 25% by echo this admit 2. History of cardiomyopathy with severely depressed left ventricular ejection fraction, last known to be improved to 45% by echo 09/21/2016, previously it had been 25%. 3. Congestive heart failure, systolic, likely acute on chronic. 4. Tachycardia. 5. Diaphoresis. 6. History of polysubstance abuse with increased BNP consistent with patient's congestive heart failure. Recc: -Tele -Continue low dose coreg/benazepril as tolerated -Isordil as tolerated only -Daily lasix and follow volume status clsoely -Lexiscan stress est today Result Diagram: 10/02/18 1010 10/03/18 0526 Results 24hrs Laboratory Tests Test 10/03/18 16:37 Urine Opiates Screen Negative Urine Barbiturates Negative Urine Amphetamines Screen POSITIVE Urine Benzodiazepines Screen Negative Urine Cocaine Screen Negative Urine Cannabinoids Positive Consultation Date/Type/Reason Admit Date/Time Oct 02, 2018 at 11:11 Initial Consult Date 10/02/18 Type of Consult cardiology Reason for Consultation cardiomyopathy Requesting Provider: GINI JUNIOR MD Exam/Review of Systems Vital Signs Vitals Vital Signs Date Temp Pulse Resp B/P (MAP) Pulse Ox O2 O2 Flow FiO2 Time Delivery Rate 10/04/18 97 12:00 10/04/18 97.9 18 99/66 (77) 98 Room Air 07:39 Intake and Output 10/03/18 10/03/18 10/04/18 1515:00 23:00 07:00 IntakeIntake Total 1200 ml 450 ml OutputOutput Total 1200 ml 350 ml BalanceBalance 0 ml 100 ml Exam Review of Systems: CONSTITUTIONAL: No fevers, chills. PULMONARY: mild sob CARDIOVASCULAR: No chest pain/palpitations GASTROINTESTINAL: No nausea/vomiting. GENITOURINARY: No hematuria/dysuria. MUSCULOSKELETAL: No myagias/arthalgias. PSYCHIATRIC: The patient denies depression. NEUROLOGIC: No weakness Constitutional: alert Psych: no complaints Head: normocephalic ENMT: mucosa pink and moist Neck: supple, jvd (9 cm water) Respiratory: No diminished breath sounds (at bases/B) Cardiovascular: regular rate and rhythm Gastrointestinal: soft, non-tender Musculoskeletal: muscle tone (normal) Extremities: edema (none) Neurological: other (No focal deficits) Medications Medications Current Medications IV Flush (NS 3 ml) 3 ml PER PROTOCOL IV ; Start 10/02/18 at 14:00 Ondansetron HCl (Zofran Inj) 4 mg Q6H PRN IV NAUSEA AND/OR VOMITING; Start 10/02/18 at 14:00 Acetaminophen (Tylenol Tab) 650 mg Q6H PRN PO PAIN LEVEL 1-3 OR FEVER; Start 10/02/18 at 14:00 Docusate Sodium (Colace) 100 mg Q12H PRN PO CONSTIPATION; Start 10/02/18 at 14:00 Famotidine (Pepcid Iv) 20 mg Q12 IV Last administered on 10/03/18 21:11; Admin Dose 20 MG; Start 10/02/18 at 21:00 Enoxaparin Sodium (Lovenox) 40 mg DAILY SC Last administered on 10/03/18 09:28; Admin Dose 40 MG; Start 10/03/18 at 09:00 Aspirin (Halfprin) 81 mg DAILY PO Last administered on 10/04/18 09:39; Admin Dose 81 MG; Start 10/03/18 at 09:00 Potassium Chloride (Klor-Con 20) 20 meq DAILY PO Last administered on 10/03/18 09:12; Admin Dose 20 MEQ; Start 10/02/18 at 14:30 Benazepril HCl (Lotensin) 5 mg DAILY PO Last administered on 10/03/18 09:13; Admin Dose 5 MG; Start 10/03/18 at 09:00 Isosorbide Dinitrate (Isordil) 10 mg TID PO Last administered on 10/03/18 21:11; Admin Dose 10 MG; Start 10/02/18 at 21:00 Nitroglycerin (Nitroglycerin (Sl Tab) 0.4 Mg) 1 tab Q5M PRN SL ANGINA; Start 10/02/18 at 15:00 Carvedilol (Coreg) 3.125 mg BID PO Last administered on 1/18/19at 09:40; Admin Dose 3.125 MG; Start 10/04/18 at 09:00 Furosemide (Lasix) 20 mg DAILY IV ; Start 10/04/18 at 09:00 CHANEL BEE Oct 04, 2018 12:34
[2018-10-04 13:47] VITALS: BP 100/58; PULSE 82; RESP 16
--- NOTE | 2018-10-04 14:11 | PN ---
Date/Time of Note Date/Time of Note DATE: 10/04/18 TIME: 14:08 Assessment/Plan VTE Prophylaxis Risk score (from [facility])>0 risk: 3 SCD applied (from [facility]): No SCD contraindicated: low risk/ambulating Pharmacological prophylaxis: LMWH Lines/Catheters [facility] Peripheral IV Urinary Cath still in place: No Assessment/Plan Hospital Course 1. Chest pain, assess for acute coronary syndrome with somewhat atypical symptomatology for cardiac etiology at this time but could be in the setting of drug use is also due to endothelial dysfunction; therefore could be cardiac .- neg trop x 3. EF 25% by echo this admit 2. History of cardiomyopathy with severely depressed left ventricular ejection fraction, last known to be improved to 45% by echo 09/21/2016, previously it had been 25%. 3. Congestive heart failure, systolic, likely acute on chronic. 4. Tachycardia. 5. Diaphoresis. 6. History of polysubstance abuse with increased BNP consistent with patient's congestive heart failure. 7. Obesity Assessment/Plan -Tele -Continue low dose coreg/benazepril as tolerated -Isordil as tolerated only -Daily lasix and follow volume status closely -Lexiscan stress pending -DVT prophylaxis Lovenox - GI prophylaxis Result Diagram: 10/02/18 1010 10/03/18 0526 Results 24hrs Laboratory Tests Test 10/03/18 16:37 Urine Opiates Screen Negative Urine Barbiturates Negative Urine Amphetamines Screen POSITIVE Urine Benzodiazepines Screen Negative Urine Cocaine Screen Negative Urine Cannabinoids Positive Subjective 24 Hr Interval Summary Constitutional: no complaints, improved Neurologic: headache Exam/Review of Systems Vital Signs Vitals Vital Signs Date Temp Pulse Resp B/P (MAP) Pulse Ox O2 O2 Flow FiO2 Time Delivery Rate 10/04/18 98.1 82 16 100/58 98 13:47 (72) 10/04/18 Room Air 07:39 Intake and Output 10/03/18 10/03/18 10/04/18 1515:00 23:00 07:00 IntakeIntake Total 1200 ml 450 ml OutputOutput Total 1200 ml 350 ml BalanceBalance 0 ml 100 ml Exam Constitutional: alert, oriented ENMT: nl external ears & nose Neck: supple Respiratory: clear to auscultation Cardiovascular: regular rate and rhythm Medications Medications Current Medications IV Flush (NS 3 ml) 3 ml PER PROTOCOL IV ; Start 10/02/18 at 14:00 Ondansetron HCl (Zofran Inj) 4 mg Q6H PRN IV NAUSEA AND/OR VOMITING; Start 10/02/18 at 14:00 Acetaminophen (Tylenol Tab) 650 mg Q6H PRN PO PAIN LEVEL 1-3 OR FEVER; Start 10/02/18 at 14:00 Docusate Sodium (Colace) 100 mg Q12H PRN PO CONSTIPATION; Start 10/02/18 at 14:00 Famotidine (Pepcid Iv) 20 mg Q12 IV Last administered on 10/03/18 21:11; Admin Dose 20 MG; Start 10/02/18 at 21:00 Enoxaparin Sodium (Lovenox) 40 mg DAILY SC Last administered on 10/03/18at 09:28; Admin Dose 40 MG; Start 10/03/18 at 09:00 Aspirin (Halfprin) 81 mg DAILY PO Last administered on 10/04/18at 09:39; Admin Dose 81 MG; Start 10/03/18 at 09:00 Potassium Chloride (Klor-Con 20) 20 meq DAILY PO Last administered on 10/03/18 09:12; Admin Dose 20 MEQ; Start 10/02/18 at 14:30 Benazepril HCl (Lotensin) 5 mg DAILY PO Last administered on 10/03/18at 09:13; Admin Dose 5 MG; Start 10/03/18 at 09:00 Isosorbide Dinitrate (Isordil) 10 mg TID PO Last administered on 10/03/18at 21:11; Admin Dose 10 MG; Start 10/02/18 at 21:00 Nitroglycerin (Nitroglycerin (Sl Tab) 0.4 Mg) 1 tab Q5M PRN SL ANGINA; Start 10/02/18 at 15:00 Carvedilol (Coreg) 3.125 mg BID PO Last administered on 10/04/18at 09:40; Admin Dose 3.125 MG; Start 10/04/18 at 09:00 Furosemide (Lasix) 20 mg DAILY IV ; Start 10/04/18 at 09:00 MO URIOSTEGUI Oct 04, 2018 14:11
--- NOTE | 2018-10-04 14:28 | PDOCDIS ---
Discharge Instructions DIAGNOSIS Discharge Diagnosis CHF, drug use CONDITION [id number] Patient Condition: [id number] Stable HOME CARE INSTRUCTIONS: [id number] Diet Instructions: [id number] Reduced Sodium ACTIVITY: [id number] Activity Restrictions: [id number] Slowly Increase Activity Rest between Activity Avoid heavy lifting FOLLOW UP/APPOINTMENTS Follow-up Plan PCP 1 week MO URIOSTEGUI Oct 04, 2018 14:28
[2018-10-04] MEDS ORDERED: CORE20CR PO (14:31)
[2018-10-04] MEDS ORDERED: ASPI-817 PO (14:31)
[2018-10-04] MEDS ORDERED: NITR0.4T32 SL (14:31)
[2018-10-04] MEDS ORDERED: BENA5TAB33 PO (14:31)
[2018-10-04] MEDS ORDERED: POTA20TA15 PO (14:31)
[2018-10-04] MEDS ORDERED: DOCU-216 PO (14:31)
[2018-10-04] MEDS ORDERED: ISOS10TA2 PO (14:31)
[2018-10-04] MEDS ORDERED: LAS20 PO (14:31)
--- NOTE | 2018-10-04 14:32 | DS ---
MO URIOSTEGUI 10/04/18 1432: Date/Time of Note Date/Time of Note DATE: 10/04/18 TIME: 14:32 Discharge Summary Admission/Discharge Info Admit Date/Time Oct 02, 2018 at 11:11 Discharge Date/Time Discharge Diagnosis CHF, drug use Patient Condition: Stable Consults Dr Sherwood, cardiology Procedures Stress test Hospital Course This is a 38-year-old male with past medical history of amphetamine and cocaine use and history of congestive heart failure diagnosed in 2016 with an EF of 20% to 25% who presented to the emergency department complaining of chest pain for 1 day and shortness of breath for the last few days. According to the patient, he has been seeing a automotive sales representative as an outpatient on a 6-month basis. For the last few days, he had been walking only 10 to 15 steps and has been getting shor t of breath. Today, he was walking with his dog and all of a sudden, he felt some chest pain and some chest soreness that lasted for a few seconds radiating to the left arm that made him come to the emergency department. According to the patient, he has been taking 4 medications at home, which he states Coreg 20, aspirin, Lasix 20, and potassium and Bensalem. The patient is still using cocaine. Stopped amphetamines many years ago. PAST MEDICAL HISTORY: 1. History of congestive heart failure, nonischemic with EF of 20 to 25%. 2. Hypertension. 3. Drug abuse. 4. History of bronchitis. Impressions; 1. Chest pain, assess for acute coronary syndrome with somewhat atypical symptomatology for cardiac etiology at this time but could be in the setting of drug use is also due to endothelial dysfunction; therefore could be cardiac .- neg trop x 3. EF 25% by echo this admit 2. History of cardiomyopathy with severely depressed left ventricular ejection fraction, last known to be improved to 45% by echo 09/21/2016, previously it had been 25%. 3. Congestive heart failure, systolic, likely acute on chronic. 4. Tachycardia. 5. Diaphoresis. 6. History of polysubstance abuse with increased BNP consistent with patient's congestive heart failure. 7. Obesity During hospitalization pt was on Telemetry service. dr Sherwood maintained his cardiac medications and titrated low dose of coreg/benazepril. He started pt on Isordil as tolerated. Pt was c/w daily lasix and we followed with volume status closely. Lexiscan stress was negative. Pt was on DVT prophylaxis with Lovenox. GI prophylaxis was with Protonix. Pt was stabilized and d/c home.Spoke to pt to stop using drugs. Home Meds Active Scripts Docusate Sodium (Dok) 100 Mg Capsule, 100 MG PO Q12H PRN for CONSTIPATION for 30 Days, CAP Prov:MO URIOSTEGUI 10/04/18 Nitroglycerin* (Nitroglycerin* SL) 0.4 Mg Tab.subl, 1 TAB SL Q5M PRN for ANGINA for 30 Days Prov:MO URIOSTEGUI 10/04/18 Isosorbide Dinitrate* (Isordil*) 10 Mg Tablet, 10 MG PO TID for 30 Days, TAB Prov:MO URIOSTEGUI 10/04/18 Benazepril Hcl* (Benazepril Hcl*) 5 Mg Tablet, 5 MG PO DAILY for 30 Days, TAB Prov:MO URIOSTEGUI 10/04/18 Carvedilol* (Coreg CR*) 20 Mg Capsr, 20 MG PO DAILY for 30 Days, #30 CAP Prov:MO URIOSTEGUI 10/04/18 Potassium Chloride* (K-Dur*) 20 Meq Tab.prt.sr, 20 MEQ PO DAILY for 30 Days, #60 TAB.SA Prov:MO URIOSTEGUI 10/04/18 Furosemide (Lasix) 20 Mg Tab, 20 MG PO BID for CHF for 30 Days, #120 TAB Prov:MO URIOSTEGUI 10/04/18 Aspirin* (Aspirin* EC) 81 Mg Tablet.dr, 81 MG PO DAILY for 30 Days, #100 TAB Prov:MO URIOSTEGUI 10/04/18 Discontinued Scripts Hydrocodone/Acetaminophen (Bensalem 10-325 Tablet) 1 Each Tablet, 1 TAB PO Q6H PRN for PAIN, #20 TAB Prov:MARK KHAN DO 09/17/16 Ciprofloxacin Hcl* (Ciprofloxacin Hcl*) 500 Mg Tablet, 500 MG PO BID for 7 Days, TAB Prov:MARK KHAN DO 09/17/16 Ondansetron (Ondansetron Odt) 4 Mg Tab.rapdis, 4 MG PO Q6H PRN for NAUSEA AND/OR VOMITING, #10 TAB Prov:CHRISTOS KHANSTOLOS A. DO 09/17/16 Dicyclomine Hcl* (Bentyl*) 20 Mg Tablet, 20 MG PO QID, #30 TAB Prov:LEKKOSCHRISTOSSTOLOS A. DO 09/17/16 Levofloxacin* (Levofloxacin*) 500 Mg Tablet, 500 MG PO DAILY for acute bronchitis , #5 TAB Prov:GINNA BRAVO MD 12/20/15 Follow-up Plan PCP 1 week Primary Care Provider Not On Staff Doctor Time spent on discharge: < 30 minutes Pending Labs Laboratory Tests Test 10/03/18 16:37 Urine Opiates Screen Negative (NEGATIVE) Urine Barbiturates Negative (NEGATIVE) Urine Amphetamines Screen POSITIVE (NEGATIVE) Urine Benzodiazepines Screen Negative (NEGATIVE) Urine Cocaine Screen Negative (NEGATIVE) Urine Cannabinoids Positive (NEGATIVE) GINI JUNIOR MD 10/05/18 1636: Discharge Summary Admission/Discharge Info Hospital Course LEXISCAN NEG FOR REVERSIBLE DEFETCS EF WAS LOW NEED MEDICAL MANAGEMNET THEN PT NEED TO STOP DRUGS IN ORDER TO GET AICD Home Meds Active Scripts Docusate Sodium (Dok) 100 Mg Capsule, 100 MG PO Q12H PRN for CONSTIPATION for 30 Days, CAP Prov:MO URIOSTEGUI 10/04/18 Nitroglycerin* (Nitroglycerin* SL) 0.4 Mg Tab.subl, 1 TAB SL Q5M PRN for ANGINA for 30 Days Prov:MO URIOSTEGUI 10/04/18 Isosorbide Dinitrate* (Isordil*) 10 Mg Tablet, 10 MG PO TID for 30 Days, TAB Prov:MO URIOSTEGUI 10/04/18 Benazepril Hcl* (Benazepril Hcl*) 5 Mg Tablet, 5 MG PO DAILY for 30 Days, TAB Prov:MO URIOSTEGUI 10/04/18 Carvedilol* (Coreg CR*) 20 Mg Capsr, 20 MG PO DAILY for 30 Days, #30 CAP Prov:MO URIOSTEGUI 10/04/18 Potassium Chloride* (K-Dur*) 20 Meq Tab.prt.sr, 20 MEQ PO DAILY for 30 Days, #60 TAB.SA Prov:MEZENTSEVA,MO 10/04/18 Furosemide (Lasix) 20 Mg Tab, 20 MG PO BID for CHF for 30 Days, #120 TAB Prov:MO URIOSTEGUI 10/04/18 Aspirin* (Aspirin* EC) 81 Mg Tablet.dr, 81 MG PO DAILY for 30 Days, #100 TAB Prov:MO URIOSTEGUI 10/04/18 Discontinued Scripts Hydrocodone/Acetaminophen (Bensalem 10-325 Tablet) 1 Each Tablet, 1 TAB PO Q6H PRN for PAIN, #20 TAB Prov:MARK KHAN DO 09/17/16 Ciprofloxacin Hcl* (Ciprofloxacin Hcl*) 500 Mg Tablet, 500 MG PO BID for 7 Days, TAB Prov:MARK KHAN DO 09/17/16 Ondansetron (Ondansetron Odt) 4 Mg Tab.rapdis, 4 MG PO Q6H PRN for NAUSEA AND/OR VOMITING, #10 TAB Prov:MARK KHAN DO 09/17/16 Dicyclomine Hcl* (Bentyl*) 20 Mg Tablet, 20 MG PO QID, #30 TAB Prov:MARK KHAN DO 09/17/16 Levofloxacin* (Levofloxacin*) 500 Mg Tablet, 500 MG PO DAILY for acute bron chitis , #5 TAB Prov:GINNA BRAVO MD 12/20/15 MO URIOSTEGUI Oct 04, 2018 14:32 GINI JUNIOR MD Oct 05, 2018 16:36
[2018-10-04 16:06] VITALS: BP 111/63; PULSE 92; RESP 17
--- NOTE | 2018-10-04 16:51 | CARRPT ---
DATE OF PROCEDURE: 10/04/2018 REASON FOR STRESS TESTING: Decreased EF, assess for ischemia. BASELINE VITAL SIGNS AND ELECTROCARDIOGRAM: Pulse 90, blood pressure 114/78. Electrocardiogram reve als normal sinus rhythm, rate of 90 with left axis deviation, nonspecific ST-T waves abnormalities di ffusely. PROCEDURE IN DETAILS: The patient underwent standard Lexiscan infusion protocol over 10 seconds foll owed by radiolabeled tracer. The patient's test was stopped at completion of protocol. Maximal achi eved blood pressure during the test was 120/81. Maximum heart rate during the test was 103. ELECTROCARDIOGRAM FINDINGS: The patient did not develop any new Lexiscan-induced ST or T-wave change s from baseline abnormalities. No documented PVCs. SYMPTOMS: The patient had no complaints of chest pain or shortness of breath during stress testing. IMPRESSION: 1. No Lexiscan-induced ST or T-wave changes from baseline abnormalities diagnostic of cardiac ischem ia. 2. No complaints of chest pain or shortness of breath during stress testing. 3. No documented premature ventricular contractions during stress test. 4. Report of nuclear images to follow in separate dictation. Dictated By: CHANEL FABIAN/VIC Conf#: [id number] DID#: [id number] CC: GINI JUNIOR;*End*
[2018-10-04] MEDS ORDERED: FAMOTIDINE 20 MG TAB PO SCH (21:00)
== END 2018-10-04 16:50 | disposition home or self-care (01) ==
LOC: E/R 09:50 → 6WM 11:11
PROVIDERS: ADMIT Internal Medicine; ATTEND Internal Medicine
DX: I11.0 Hypertensive heart disease with heart failure (principal); I50.20 Unspecified systolic (congestive) heart failure; F14.10 Cocaine abuse, uncomplicated; F15.10 Other stimulant abuse, uncomplicated; E78.00 Pure hypercholesterolemia, unspecified; Z87.891 Personal history of nicotine dependence; E66.9 Obesity, unspecified; Z68.38 Body mass index [BMI] 38.0-38.9, adult; Z79.82 Long term (current) use of aspirin; Z23 Encounter for immunization
CPT/HCPCS: 36415; 71045; 78452; 80048; 80053; 80061; 80307; 82550; 82553; 83735; 83880; 84100; 84439; 84443; 84481; 84484; 85025; 90686; 93005; 93017; 93306; A9500; A9505; J1650; J1940; J2785; Z7500; Z7502; Z7610; G0378

== ENCOUNTER 2018-12-18 14:26 | Emergency (ER) | payer SELFPAY ==
[~2018-12-18] VITALS: Ht 175.3 cm; Wt 117.0 kg
[~2018-12-18 14:26] MED LIST changes: +BENA5TAB33 PO; -CIPR500T4 PO; +CORE20CR PO; -DICY20TA59 PO; +DOCU-216 PO; -HYDR-3980 PO; +ISOS10TA2 PO; -LEVO500T10 PO; +NITR0.4T32 SL; -ONDA4TAB14 PO
[2018-12-18 14:28] VITALS: BP 136/95; PULSE 106; RESP 18; Ht 175.3 cm; Wt 117.0 kg
== END 2018-12-18 15:21 | disposition left against medical advice (07) ==
LOC: FTE 14:26
DX: Z53.21 Procedure and treatment not carried out due to patient leaving prior to being seen by health care provider (principal)

== ENCOUNTER 2018-12-19 21:56 | Emergency (ER) | payer OTHER ==
[~2018-12-19] VITALS: Ht 175.3 cm; Wt 116.6 kg
[2018-12-19 22:26] VITALS: Ht 175.3 cm; Wt 116.6 kg
--- NOTE | 2018-12-19 22:41 | ERD ---
ER Documentation Chief Complaint Chief Complaint AP, L eye pain HPI The patient is a 38-year-old male, presenting to the ER because of multiple complaints, he complains of shortness of breath for the last 3-4 days, left eye redness for 1 day with discharge, intermittent right-sided abdominal pain for the last 4-5 days. He had similar abdominal pain previously. He denies fever, chills, neck pain, chest pain, dyspnea, vomiting, diarrhea, constipation, dysuria. He does not smoke, drink, history of substance abuse Past medical history: History of CHF, cardiomyopathy with EF of 20-25%, hypertension Past surgical history: None ROS All systems reviewed and are negative except as per history of present illness. Medications Home Meds Active Scripts Docusate Sodium (Dok) 100 Mg Capsule, 100 MG PO Q12H PRN for CONSTIPATION for 30 Days, CAP Prov:MO URIOSTEGUI 10/04/18 Nitroglycerin* (Nitroglycerin* SL) 0.4 Mg Tab.subl, 1 TAB SL Q5M PRN for ANGINA for 30 Days Prov:MO URIOSTEGUI 10/04/18 Isosorbide Dinitrate* (Isordil*) 10 Mg Tablet, 10 MG PO TID for 30 Days, TAB Prov:MO URIOSTEGUI 10/04/18 Benazepril Hcl* (Benazepril Hcl*) 5 Mg Tablet, 5 MG PO DAILY for 30 Days, TAB Prov:MO URIOSTEGUI 10/04/18 Carvedilol* (Coreg CR*) 20 Mg Capsr, 20 MG PO DAILY for 30 Days, #30 CAP Prov:MO URIOSTEGUI 10/04/18 Potassium Chloride* (K-Dur*) 20 Meq Tab.prt.sr, 20 MEQ PO DAILY for 30 Days, #60 TAB.SA Prov:MO URIOSTEGUI 10/04/18 Furosemide (Lasix) 20 Mg Tab, 20 MG PO BID for CHF for 30 Days, #120 TAB Prov:MO URIOSTEGUI 10/04/18 Aspirin* (Aspirin* EC) 81 Mg Tablet.dr, 81 MG PO DAILY for 30 Days, #100 TAB Prov:MO URIOSTEGUI 10/04/18 Allergies Allergies: Coded Allergies: No Known Allergy (Unverified , 10/02/18) PMhx/Soc History of Surgery: Yes (LT ARM SURGERY) Anesthesia Reaction: No Hx Neurological Disorder: No Hx Respiratory Disorders: No Hx Cardiac Disorders: Yes (CARDIOMYOPATHY;HIGH BLOOD PRESSURE;CHF) Hx Psychiatric Problems: No Hx Miscellaneous Medical Probl: No Hx Alcohol Use: No Hx Substance Use: No Hx Tobacco Use: No Physical Exam Vitals Vital Signs Date Temp Pulse Resp B/P (MAP) Pulse Ox O2 O2 Flow FiO2 Time Delivery Rate 12/20/18 102 15 130/109 100 Room Air 00:40 (116) 12/19/18 95 26 105/88 100 Room Air 23:15 (94) 12/19/18 100.5 99 32 127/86 98 22:26 (100) Physical Exam Const: No acute distress. Head: Atraumatic. Eyes: Left eye with erythematous conjunctiva, minimal discharge, no nystagmus. ENT: Normal External Ears, Nose and Mouth. Neck: Full range of motion. No meningismus. Resp: Clear to auscultation bilaterally. Cardio: Regular rate and rhythm. Abd: Soft, non distended, normal bowel sounds, minimal right upper quadrant discomfort, no right lower quadrant/epigastric/rigidity/rebound/CVA tenderness Skin: No petechiae or rashes. Back: No midline or flank tenderness. Ext: No cyanosis, or edema. Neur: Awake and alert. No focal deficit Psych: Normal Mood and Affect. Result Diagram: 12/19/18224012/19/181 Results 24 hrs Laboratory Tests Test 12/19/18 22:40 12/19/18 22:41 12/19/18 22:51 12/20/18 00:53 POC Venous Lactate 1.4 mmol/L 1.3 mmol/L White Blood Count 14.7 10^3/ul Red Blood Count 6.67 10^6/ul Hemoglobin 18.2 g/dl Hematocrit 56.5 % Mean Corpuscular 84.7 fl Volume Mean Corpuscular 27.3 pg Hemoglobin Mean Corpuscular 32.2 g/dl Hemoglobin Concent Red Cell Distribution 15.4 % Width Platelet Count 339 10^3/UL Mean Platelet Volume 9.9 fl Immature Granulocytes 0.500 % % Neutrophils % 74.5 % Lymphocytes % 16.0 % Monocytes % 7.2 % Eosinophils % 1.0 % Basophils % 0.8 % Nucleated Red Blood 0.0 /100WBC Cells % Immature Granulocytes 0.070 10^3/ul # Neutrophils # 10.9 10^3/ul Lymphocytes # 2.3 10^3/ul Monocytes # 1.1 10^3/ul Eosinophils # 0.2 10^3/ul Basophils # 0.1 10^3/ul Nucleated Red Blood 0.0 10^3/ul Cells # Prothrombin Time 14.5 Sec Prothrombin Time Ratio 1.1 INR International 1.12 Normalized Ratio Activated 28.2 Sec Partial Thromboplast Time Sodium Level 137 mmol/L Potassium Level 5.4 mmol/L Chloride Level 101 mmol/L Carbon Dioxide Level 25 mmol/L Anion Gap 11 Blood Urea Nitrogen 22 mg/dl Creatinine 1.33 mg/dl Est Glomerular Filtrat 60 mL/min Rate mL/min Glucose Level 130 mg/dl Calcium Level 10.0 mg/dl Total Bilirubin 1.5 mg/dl Direct Bilirubin 0.00 mg/dl Indirect Bilirubin 1.5 mg/dl Aspartate Amino 34 IU/L Transf (AST/SGOT) Alanine 32 IU/L Aminotransferase (ALT/ SGPT) Alkaline Phosphatase 91 IU/L Troponin I 0.032 ng/ml Total Protein 7.4 g/dl Albumin 4.3 g/dl Globulin 3.10 g/dl Albumin/Globulin Ratio 1.38 Lipase 60 U/L Procedures/[place] [id number] Radiology Main Line: [phone] DIAGNOSTIC IMAGING REPORT Patient: SOMMER AMOS : 1980 Age: 38 Sex: M [id number] DOS: 12/19/18 2347 Ordering MD: KAYLEEN SCHAEFER MD Location: E/R Room/Bed: PROCEDURE: CT ABDOMEN/PELVIS WITHOUT CONTRAST CLINICAL INDICATION: 38-year-old male with abdominal pain. TECHNIQUE: The study was performed utilizing a kontakt.iopeed VCT 64-slice CT scanner. Direct axial sections were obtained through the abdomen and pelvis without the use of intravenous contrast material. Sagittal and coronal reformations were obtained. One or more of the following dose reduction techniques were utilized: automated exposure control, adjustment of the mA and/or kV according to patient's size, use of iterative reconstruction technique. DICOM images are available. The images were reviewed on a PACS workstation. CTD/vol = 23.74 mGy; Total Exam DLP = 1670.88 mGy.cm. COMPARISON: Right upper quadrant ultrasound December 19, 2018; CTA chest December 17, 2015.. FINDINGS: Mild cardiomegaly and mild dependent pericardial effusion is noted. There is minimal right pleural effusion. There is mild free fluid surrounding the liver and spleen. The liver has a normal size and contour without focal areas of abnormal density. No intrahepatic nor extrahepatic biliary ductal dilatation is seen. The gallbladder contains noncalcified gallstones without significant wall thickening. The pancreas is mild fatty replaced with mild focal areas of abnormal density however there is minimal peripancreatic infiltration. The spleen is identified and has a normal size without abnormal density. The adrenal glands are unremarkable. The right kidney is without abnormal density, calculi or obstruction. There is an oblong left lower pole renal cortical cyst measuring approximately 4.6 x 3.3 x 3.5 cm on axial image 3-105. No hydroureteronephrosis nor nephroureterolithiasis is evident. The urinary bladder contains urine. There is a minimal umbilical hernia with an opening of 7 x 6 mm containing fat. There is mild retained stool within the ascending and transverse colon without obstruction. The appendix is retrocecal and is without abnormal thickening or surrounding inflammatory reaction. The prostate is not enlarged. There is a minimal right inguinal hernia containing fat. The aortoiliac vessels are without aneurysmal dilatation. Mild degenerative changes are present within the spine. IMPRESSION: 1. Mild free fluid within the upper abdomen. 2. Cholelithiasis. 3. Minimal peripancreatic infiltration suggestive of pancreatitis. Clinical correlation is necessary. 4. Retained stool within the proximal colon without obstruction. 5. No CT evidence for appendicitis. 6. Left lower pole renal cyst. 7. Minimal right inguinal hernia containing fat. 8. Cardiomegaly with mild dependent pericardial effusion. 9. Minimal right pleural effusion. 10. Mild degenerative changes within the spine. .Samuel Marion MD, Date Time Electronically viewed and signed by .Samuel Marion MD, MD on 12/20/2018 02:08 .M/ CC: KAYLEEN SCHAEFER MD [id number] [place] [id number] Radiology Main Line: [phone] DIAGNOSTIC IMAGING REPORT Patient: SOMMER AMOS : 1980 Age: 38 Sex: M MR #: [id number] DOS: 12/19/18 2347 Ordering MD: KAYLEEN SCHAEFER MD Location: E/R Room/Bed: PROCEDURE: US Abdomen Limited, Right Upper Quadrant CLINICAL INDICATION: Abdominal pain. TECHNIQUE: Real-time ultrasound of the right upper quadrant with image documentation. COMPARISON: None FINDINGS: LIVER: Unremarkable. No mass. No intrahepatic bile duct dilation. GALLBLADDER: Multiple gallstones demonstrated in the gallbladder. No gallbladder wall thickening. No pericholecystic fluid. COMMON BILE DUCT: No biliary dilatation. The common duct measures 4.1 mm in diameter. No stones. PANCREAS: The pancreas is obscured by overlying intestinal gas. RIGHT KIDNEY: Right kidney measures 12 or 1 cm in length. No renal cyst, mass, calculus, or hydronephrosis. IMPRESSION: Multiple gallstones demonstrated in the gallbladder. No gallbladder wall thi ckening. No pericholecystic fluid. RPTAT: [facility] Christoph Lopez [employer] Date Time Electronically viewed and signed by Christoph Lopez [employer] on 12/20/2018 00:49 RmC/ CC: KAYLEEN SCHAEFER MD [id number] [place] [id number] Radiology Main Line: [phone] DIAGNOSTIC IMAGING REPORT Patient: SOMMER AMOS : 1980 Age: 38 Sex: M MR #: [id number] DOS: 12/19/18 2232 Ordering MD: KAYLEEN SCHAEFER MD Location: E/R Room/Bed: PROCEDURE: XR Chest. CLINICAL INDICATION: Sepsis. TECHNIQUE: Single frontal view. COMPARISON: 10/02/2018. FINDINGS: The lungs are clear. The heart is enlarged. There is no pleural effusion. There is no pneumothorax. IMPRESSION: 1. Cardiomegaly. 2. Otherwise unremarkable chest radiograph. RPTAT: QQ .Chadwick Salcido MD, MD Date Time Electronically viewed and signed by .Chadwick Salcido MD, MD on 12/19/2018 23:21 .R/ CC: KAYLEEN SCHAEFER MD [id number] EKG: Read by emergency physician Rate/Rhythm: Normal Sinus Rhythm 100 beats/min QRS, ST, T-waves: No ST elevation, no T inversion, BRENNAN, RAD, IRBBB Impression: Abnormal EKG MEDICAL MAKING DECISION: The patient is a 38-year-old male, presenting with abdominal pain, left eye bacterial conjunctivitis. Unfortunately he eloped from the emergency department The differential diagnoses considered include but are not limited to cholelithiasis, cholecystitis, choledocholithiasis, cholangitis, pancreatitis, hepatitis, gastritis, peptic ulcer disease, gastric ulcer, appendicitis, cystitis, diverticulitis, partial small bowel obstruction. Departure Diagnosis: Primary Impression: Abdominal pain Additional Impressions: Conjunctivitis, left eye Cholelithiasis Hyperkalemia Leukocytosis Condition: Stable Comments He Eloped from the emergency department KAYLEEN SCHAEFER MD Dec 19, 2018 22:41
[2018-12-20 00:40] VITALS: BP 130/109; PULSE 102; RESP 15
== END 2018-12-20 06:13 | disposition left against medical advice (07) ==
LOC: E/R 21:56
DX: H10.9 Unspecified conjunctivitis (principal); I11.0 Hypertensive heart disease with heart failure; I50.9 Heart failure, unspecified; K80.20 Calculus of gallbladder without cholecystitis without obstruction; E87.5 Hyperkalemia; D72.829 Elevated white blood cell count, unspecified; Z79.82 Long term (current) use of aspirin
CPT/HCPCS: 36415; 71045; 74176; 76705; 80053; 83605; 83690; 84484; 85025; 85610; 85730; 87040; Z7502; Z7610

== ENCOUNTER 2019-01-08 07:38 | Emergency (ER) | payer OTHER ==
[~2019-01-08] VITALS: Ht 175.3 cm; Wt 130.0 kg
[2019-01-08 07:39] VITALS: Ht 175.3 cm; Wt 130.0 kg
[2019-01-08] MEDS ORDERED: BENA10TA4 PO (11:01)
[2019-01-08] MEDS ORDERED: ASPI-817 PO (11:01)
[2019-01-08] MEDS ORDERED: POTA20TA96 PO (11:01)
[2019-01-08] MEDS ORDERED: FURO20TA3 PO (11:02)
[2019-01-08] MEDS ORDERED: CARV6.2579 PO (11:02)
[2019-01-08] MEDS ORDERED: ZOLP5TAB7 PO (11:03)
--- NOTE | 2019-01-08 11:05 | PSY ---
Date/Time of Note Date/Time of Note DATE: 01/08/19 TIME: 10:48 Psychiatric Subjective Eval Consent Pt consented to telemedicine: Yes Subjective Evaluation Chief Complaint: SOB X 3 DAYS Reason for consult: Diagnosis and treatment History of present illness This is a 38 year old male who had a history of methamphetamine and other drug abuse which resulted in him developing congestive heart failure. He also has a family history of bipolar disorder. The patient presented to the ED with complaints of shortness of breath. The father expressed concern that the patient is bipolar and should be seen by a psychiatrist. The patient was cooperative during the interview. He stated that he has not been sleeping for the past 2 weeks. He reports having racing negative intrusive thoughts associated with intense feelings on anxiety. He was prescribed Zolpidem for his sleep disturbance, and found himself feeling paranoid. The father also reported that he had been acting in a bizarre manner and has been talking to himself. The patient denies suicidal or homicidal ideation, intent or plan. He is living with his father. He denies any prior psychiatric care. He denies any recent use of methamphetamine. Hospitalization: no Family History The patient's mother is bipolar. He has had no contact with his mother for years. Medical history Problems Medical Problems: (1) Abdominal pain Status: Acute (2) Chest pain Status: Acute (3) CHF (congestive heart failure) Status: Acute (4) Cholecystitis Status: Acute (5) Cholecystitis Status: Acute (6) Cholelithiasis Status: Acute (7) Conjunctivitis, left eye Status: Acute (8) Eloped from emergency department Status: Acute (9) Gallstones Status: Acute (10) Hyperkalemia Status: Acute (11) Leukocytosis Status: Acute (12) Patient left without being seen Status: Acute (13) Patient left without being seen Status: Acute Allergies: Coded Allergies: No Known Allergy (Unverified , 10/02/18) Substance Abuse Substance abuse history: Yes Prior substance abuse treatmen: No Social History Marital status: single Level of education: High school and vocational training DPA/Conservatorship: No 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 Psychiatric Objective Eval Review of Systems: Review of Systems: Applicable Constitutional: Normal Eyes: Normal ENT: Normal Neck: Normal Respiratory: Normal Chest/Breast: Normal Cardiovascular: Abnormal GI: Normal Genitourinary: Normal Skin: Normal Lymphatic: Normal Musculoskeletal: Normal Neurological: Normal Other: Shortness of breath related to CHF. Physical Examination: Physical Examination: Applicable Sleep: Insomnia Appetite: Adequate Energy: Adequate Interest: Adequate Mental Status Examination: Appearance: Groomed Eye Contact: Good Psychomotor Activity: Normal Behavior: Cooperative Speech: Clear AFFECT: Appropriate, Depressed, Anxious Mood: Depressed, Anxious Though Process: Linear Thought Content: Normal Suicidal: No Homicidal: No On 72 hour hold: No Orientation: x4 Cognition: Alert Insight: Intact Judgement: Intact Attention Span: Intact Laboratory Results Laboratory Tests Test 01/08/19 08:10 White Blood Count 13.7 10^3/ul Red Blood Count 5.84 10^6/ul Hemoglobin 16.1 g/dl Hematocrit 50.1 % Mean Corpuscular Volume 85.8 fl Mean Corpuscular Hemoglobin 27.6 pg Mean Corpuscular Hemoglobin Concent 32.1 g/dl Red Cell Distribution Width 16.7 % Platelet Count 373 10^3/UL Mean Platelet Volume 9.6 fl Immature Granulocytes % 0.500 % Neutrophils % 69.9 % Lymphocytes % 17.8 % Monocytes % 8.8 % Eosinophils % 2.3 % Basophils % 0.7 % Nucleated Red Blood Cells % 0.0 /100WBC Immature Granulocytes # 0.070 10^3/ul Neutrophils # 9.6 10^3/ul Lymphocytes # 2.4 10^3/ul Monocytes # 1.2 10^3/ul Eosinophils # 0.3 10^3/ul Basophils # 0.1 10^3/ul Nucleated Red Blood Cells # 0.0 10^3/ul Sodium Level 138 mmol/L Potassium Level 4.8 mmol/L Chloride Level 103 mmol/L Carbon Dioxide Level 27 mmol/L Anion Gap 8 Blood Urea Nitrogen 29 mg/dl Creatinine 1.21 mg/dl Est Glomerular Filtrat Rate mL/min > 60 mL/min Glucose Level 147 mg/dl Calcium Level 9.1 mg/dl Total Bilirubin 1.0 mg/dl Direct Bilirubin 0.00 mg/dl Indirect Bilirubin 1.0 mg/dl Aspartate Amino Transf (AST/SGOT) 190 IU/L Alanine Aminotransferase (ALT/SGPT) 421 IU/L Alkaline Phosphatase 121 IU/L Troponin I 0.063 ng/ml B-Type Natriuretic Peptide 22247 PG/ML Total Protein 6.3 g/dl Albumin 3.6 g/dl Globulin 2.70 g/dl Albumin/Globulin Ratio 1.33 Assessment and Plan Assessment/Diagnosis Diagnosis F31.64 Bipolar disorder, mixed, severe with psychotic features. Recommendation/Plan Medication Management The patient's mother is bipolar. He reports having a history of racing negative intrusive thoughts associated with anxiety and depression. Lamotrigine is the drug of choice for many reasons. It is clinically the most effective, has the least side effects, minimal cognitive impairment, high compliance, and is not associated with weight gain. This does not require blood levels or lab tests. Carbamazepine is a fair alternative. This is not associated as associated with weight again as with Depakote. It has more side effects then Lamotrigine and is not as effective. The best recommendation for this patient is as follows: Do a quick cross taper from Carbamazepine to Lamotrigine. This could be done by the patient's treating psychiatrist. Carbamazepine 200mg po tid for 1 week, then 400mg po tid for 3 weeks, then 200mg po bid for 1 week, then discontinue #180 Lamotrigine 25mg tab po daily for 2 weeks, then 25mg po bid for 2 weeks, then 50mg po bid for 1 week then 100mg po bid thereafter. #250 Seroquel 100mg tab i po every hour prn racing thoughts. Do not exceed 400mg in 24 hours. #120 Because the patient is obese, and is suffering from CHF, A short supply of Clon azepam 1mg po every 24 hours prn anxiety can reduce cardiac stress related to his manic anxiety. Suggest Clonazepam 1mg po pm prn anxiety for 5 days. #5. Dysphoric Melanie http://en.wikipedia.org/wiki/Mixed_state_%28psychiatry%29 http://www.psychiatrictime s.com/articles/ybjct-luxjgx-uvfdb-sfpskutr-lgpja-iphj-1 http://www.bipolardisorderscenters.com/psxn-nt-jbwmdynhs-melanie/ Lamotrigine: The role of lamotrigine in the management of bipolar disorder https://www.ncbi.nlm.nih.gov/pmc/articles/PUA3828652/ Lamotrigine (Lamictal) https://www.rito.org/Learn-More/Treatment/Shgkld-Gxuqqo-Bngxedgbjdy/Lamotrigine-(Lamictal) Multiple antipsychotics: No Pt. Caregiver/Family Education Dysphoric Melanie http://en.wikipedia.org/wiki/Mixed_state_%28psychiatry%29 http://www.psychiatrictimes.com/articles/jthpv-scxthg-ujwns-qaqgwuzg-wwkjz-yfdv-1 http://www.bipolardisorderscenters.com/xgnj-ai-fiwxbpjuf-melanie/ Lamotrigine: The role of lamotrigine in the management of bipolar disorder https://www.ncbi.nlm.nih.gov/pmc/articles/PXA5359564/ Lamotrigine (Lamictal) https://www.rito.org/Learn-More/Treatment/Mental-He alth-Medications/Lamotrigine-(Lamictal) Discharge Disposition: Community (home) Legal Status: Voluntary BULL MARTINEZ MD Jan 08, 2019 11:00
[2019-01-08] MEDS ORDERED: LAMO25TA55 PO (11:17)
[2019-01-08] MEDS ORDERED: CARB200T43 PO (11:17)
[2019-01-08] MEDS ORDERED: QUET100T PO (11:17)
--- NOTE | 2019-01-08 11:22 | ERD ---
ER Documentation Chief Complaint Chief Complaint SOB X 3 DAYS HPI 38-year-old male presents the emergency department complaining of shortness of breath and chest discomfort when he lies down. Patient is a somewhat limited historian. 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 Patient states his been compliant with his cardiac medication. Recently has been feeling short of breath. He states that he occasionally walks upstairs and gets short of breath. He denies any significant chest discomfort other than one lying down he states he has a hard time sleeping which she occasionally describes a discomfort. He has no anginal or exertional chest pain. He reports no fevers, cough, hemoptysis. According to the father, patient also has been recently taking Ambien which is a new prescription for him. He has been in his room acting appropriately. He has not been suicidal, dangerous or homicidal but only somewhat bizarre. The patient currently describes no suicidal or homicidal thoughts. ROS All systems reviewed and are negative except as per history of present illness. Medications Home Meds Active Scripts Quetiapine Fumarate* (Seroquel*) 100 Mg Tablet, 100 MG PO as directed, #20 TAB Prov:RIKA WILEY 01/08/19 Lamotrigine* (Lamotrigine* ER) 25 Mg Tab.er.24, 25 MG PO as directed, #250 TAB Prov:RIAK WILEY 01/08/19 Carbamazepine* (Carbamazepine* XR) 200 Mg Tab.er.12h, 200 MG PO as directed, #180 TAB.SA Prov:RIKA WILEY 01/08/19 Reported Medications Zolpidem Tartrate* (Zolpidem Tartrate*) 5 Mg Tablet, 5 MG PO QHS PRN for INSOMNIA, #30 TAB 1 OR 2 TIMES A DAY 01/08/19 Furosemide* (Furosemide*) 20 Mg Tablet, 20 MG PO BID, #30 TAB 01/08/19 Carvedilol* (Carvedilol*) 6.25 Mg Tablet, 6.25 MG PO BID, #60 TAB 01/08/19 Potassium Chloride* (Potassium Chloride*) 20 Meq Tablet.er, 20 MEQ PO DAILY, TAB.SA 01/08/19 Benazepril Hcl* (Benazepril Hcl*) 10 Mg Tablet, 10 MG PO DAILY, #30 TAB 01/08/19 Aspirin* (Aspirin* EC) 81 Mg Tablet.dr, 81 MG PO DAILY, TAB 01/08/19 Discontinued Scripts Docusate Sodium (Dok) 100 Mg Capsule, 100 MG PO Q12H PRN for CONSTIPATION for 30 Days, CAP Prov:MO URIOSTEGUI 10/04/18 Nitroglycerin* (Nitroglycerin* SL) 0.4 Mg Tab.subl, 1 TAB SL Q5M PRN for ANGINA for 30 Days Prov:MO URIOSTEGUI 10/04/18 Isosorbide Dinitrate* (Isordil*) 10 Mg Tablet, 10 MG PO TID for 30 Days, TAB Prov:MO URIOSTEGUI 10/04/18 Benazepril Hcl* (Benazepril Hcl*) 5 Mg Tablet, 5 MG PO DAILY for 30 Days, TAB Prov:MO URIOSTEGUI 10/04/18 Carvedilol* (Coreg CR*) 20 Mg Capsr, 20 MG PO DAILY for 30 Days, #30 CAP Prov:MO URIOSTEGUI 10/04/18 Potassium Chloride* (K-Dur*) 20 Meq Tab.prt.sr, 20 MEQ PO DAILY for 30 Days, #60 TAB.SA Prov:MO URIOSTEGUI 10/04/18 Furosemide (Lasix) 20 Mg Tab, 20 MG PO BID for CHF for 30 Days, #120 TAB Prov:MO URIOSTEGUI 10/04/18 Aspirin* (Aspirin* EC) 81 Mg Tablet.dr, 81 MG PO DAILY for 30 Days, #100 TAB Prov:MO URIOSTEGUI 10/04/18 Allergies Allergies: Coded Allergies: No Known Allergy (Unverified , 01/08/19) PMhx/Soc History of Surgery: Yes (LT ARM SURGERY) Anesthesia Reaction: No Hx Neurological Disorder: No Hx Respiratory Disorders: No Hx Cardiac Disorders: Yes (CARDIOMYOPATHY;HIGH BLOOD PRESSURE;CHF) Hx Psychiatric Problems: No Hx Miscellaneous Medical Probl: No Hx Alcohol Use: No Hx Substance Use: Yes (MARIJUANA, METH) Hx Tobacco Use: Yes Smoking Status: Current some day smoker FmHx Supportive father at bedside. There is a family history of bipolar disorder Physical Exam Vitals Vital Signs Date Temp Pulse Resp B/P (MAP) Pulse Ox O2 O2 Flow FiO2 Time Delivery Rate 01/08/19 90 24 107/87 97 Nasal 3.0 10:01 (94) Cannula 01/08/19 100 23 116/94 100 Nasal 3.0 08:14 (101) Cannula 01/08/19 Nasal 3 08:00 Cannula 01/08/19 97.8 96 18 120/87 97 07:39 (98) Physical Exam GENERAL: The patient is well developed and appropriate for usual state of health in no apparent distress HEENT: Pupils equal, round, and reactive to light. EOMI. There is no scleral icterus. NECK: C-spine is soft and supple, there is no meningismus. There is no cervical lymphadenopathy. LUNGS: Clear to auscultation bilaterally. There are no rales, wheezes or rhonchi. HEART: Regular rate and rhythm, no murmurs, clicks, rubs or gallops. ABDOMEN: Soft, non-tender, non-distended. There are bowel sounds in all four quadrants. No rebound or guarding. EXTREMITIES: There is no peripheral cyanosis or edema. No focal swelling or er ythema. NEURO: The patient moves all four extremities with 5/5 strength. Cranial nerves II - XII are intact. Normal gait. Alert and oriented SKIN: There is no apparent rash or petechiae. HEME/LYMPHATIC: There is no evidence of excessive bruising or lymphedema. PSYCHIATRIC: Awake alert and appropriate. Occasional bizarre affect and demeanor. No auditory visual hallucinations. No suicidal homicidal thoughts. No agitation. Result Diagram: 01/08/19 0810 01/08/19 0810 Results 24 hrs Laboratory Tests Test 01/08/19 08:10 White Blood Count 13.7 10^3/ul Red Blood Count 5.84 10^6/ul Hemoglobin 16.1 g/dl Hematocrit 50.1 % Mean Corpuscular Volume 85.8 fl Mean Corpuscular Hemoglobin 27.6 pg Mean Corpuscular Hemoglobin Concent 32.1 g/dl Red Cell Distribution Width 16.7 % Platelet Count 373 10^3/UL Mean Platelet Volume 9.6 fl Immature Granulocytes % 0.500 % Neutrophils % 69.9 % Lymphocytes % 17.8 % Monocytes % 8.8 % Eosinophils % 2.3 % Basophils % 0.7 % Nucleated Red Blood Cells % 0.0 /100WBC Immature Granulocytes # 0.070 10^3/ul Neutrophils # 9.6 10^3/ul Lymphocytes # 2.4 10^3/ul Monocytes # 1.2 10^3/ul Eosinophils # 0.3 10^3/ul Basophils # 0.1 10^3/ul Nucleated Red Blood Cells # 0.0 10^3/ul Sodium Level 138 mmol/L Potassium Level 4.8 mmol/L Chloride Level 103 mmol/L Carbon Dioxide Level 27 mmol/L Anion Gap 8 Blood Urea Nitrogen 29 mg/dl Creatinine 1.21 mg/dl Est Glomerular Filtrat Rate mL/min > 60 mL/min Glucose Level 147 mg/dl Calcium Level 9.1 mg/dl Total Bilirubin 1.0 mg/dl Direct Bilirubin 0.00 mg/dl Indirect Bilirubin 1.0 mg/dl Aspartate Amino Transf (AST/SGOT) 190 IU/L Alanine Aminotransferase (ALT/SGPT) 421 IU/L Alkaline Phosphatase 121 IU/L Troponin I 0.063 ng/ml B-Type Natriuretic Peptide 22064 PG/ML Total Protein 6.3 g/dl Albumin 3.6 g/dl Globulin 2.70 g/dl Albumin/Globulin Ratio 1.33 Procedures/MDM Patient was taken to a room, seen and evaluated. Comfort measures were initiated. Diagnostic tests were ordered and reviewed. 3 LEAD RHYTHM STRIP: Normal sinus rhythm without ectopy EK lead EKG reviewed by myself: Normal Sinus Rhythm Incomplete right bundle branch block No ST elevation, depression, or T wave inversion, nonspecific ST and T wave changes Impression: Nonspecific EKG RADIOLOGY: Reviewed with the radiologist CONSULTATION: After initial cardiac tests were appreciated, patient was seen and evaluated by the psychiatric evaluation team. Recommendations were made. REEVALUATION: 1120: Diagnostic tests were appreciated and discussed with the patient. Patient was reevaluated after the psychiatric evaluation. He denied suicidal or homicidal thoughts. He denied any significant chest pain or shortness of breath and seemed appropriate for discharge. MEDICAL DECISION MAKIN-year-old with a history of cardiomyopathy and co ngestive heart failure presents the emergency department nonspecific chest pain and shortness of breath. After initial diagnostic evaluation, the discomforts that he is having do not appear to be cardiac in etiology with no evidence of ischemia and his shortness of breath seems to be indicative of a controlled congestive heart failure no evidence of significant decompensation. His secondary issue is what appears to be a newly diagnosed bipolar disorder. Psychiatry consultation has been appreciated. Patient does not appear to be a danger to himself or others at this time and seems appropriate for discharge for outpatient supportive care. Departure Diagnosis: Primary Impression: Bipolar 1 disorder Additional Impression: CHF (congestive heart failure) Condition: Stable Patient Instructions: Bipolar Disorder Additional Instructions: See your doctor for follow-up as discussed. Take a copy of your test results, if appropriate, to this follow-up visit. See your doctor or return here if your symptoms do not improve as expected. At any time, please return to the emergency department for any change or worsening in her symptoms. RIKA WILEY Jan 08, 2019 11:22
[2019-01-08 11:41] VITALS: BP 126/85; PULSE 76; RESP 19
== END 2019-01-08 14:33 | disposition home or self-care (01) ==
LOC: E/R 07:38
DX: F31.9 Bipolar disorder, unspecified (principal); R40.2142 Coma scale, eyes open, spontaneous, at arrival to emergency department; R40.2362 Coma scale, best motor response, obeys commands, at arrival to emergency department; R40.2252 Coma scale, best verbal response, oriented, at arrival to emergency department; F17.210 Nicotine dependence, cigarettes, uncomplicated; I11.0 Hypertensive heart disease with heart failure; I50.9 Heart failure, unspecified; Z79.82 Long term (current) use of aspirin
CPT/HCPCS: 36415; 71045; 80053; 83880; 84484; 85025; 93005; Z7502

== ENCOUNTER 2019-01-10 22:41 | Emergency (ER) | payer OTHER ==
[~2019-01-10] VITALS: Ht 175.3 cm; Wt 116.2 kg
[~2019-01-10 22:41] MED LIST changes: +BENA10TA4 PO; -BENA5TAB33 PO; +CARB200T43 PO; +CARV6.2579 PO; -CORE20CR PO; -DOCU-216 PO; +FURO20TA3 PO; -ISOS10TA2 PO; +LAMO25TA55 PO; -LAS20 PO; -NITR0.4T32 SL; -POTA20TA15 PO; +POTA20TA96 PO; +QUET100T PO; +ZOLP5TAB7 PO
[2019-01-10 22:58] VITALS: Ht 175.3 cm; Wt 116.2 kg
[2019-01-11] MEDS ORDERED: LORAZEPAM 2 MG INJ IV ONE (02:30)
[2019-01-11] MEDS ORDERED: IODIXANOL LOCM 100 ML BTL ONE (03:45)
[2019-01-11] MEDS ORDERED: SOD CHLORIDE 0.9% 100 ML ONE (03:45)
[2019-01-11] MEDS: SOD CHLORIDE 0.9% 500 ML IV ONE ×2 (04:24→04:29)
--- NOTE | 2019-01-11 04:39 | ERD ---
ER Documentation Chief Complaint Chief Complaint SOB and AP x 2 days HPI This is a 38-year-old male with a past medical history of hypertension, CHF related to past methamphetamine and polysubstance abuse, a recent diagnosis of bipolar disorder who is presenting with several months of nonspecific nonradiating aching chest pain with shortness of breath, significant anxiousness and palpitations. The patient does not endorse any alleviating or exacerbating factors. The patient denies feeling sick recently. The patient denies fever or chills. The patient has had no headache or vision changes. The patient does not endorse neck or back pain. The patient denies lightheadedness or dizziness. The patient denies nausea or vomiting. He denies diaphoresis. The patient denies abdominal pain. The patient denies changes to bowel movements or urination. The patient has had no focal deficits. The patient has had no weakness or numbness or tingling to the face or extremities. The patient was evaluated recently and diagnosed with bipolar disorder. He was started on medications that he reports taking compliantly. He does have a bizarre affect, but he is alert and oriented and able to answer questions. The patient is not suicidal or homicidal. He denies auditory or visual hallucinations. ROS All systems reviewed and are negative except as per history of present illness. Medications Home Meds Active Scripts Quetiapine Fumarate* (Seroquel*) 100 Mg Tablet, 100 MG PO as directed, #20 TAB Prov:RIKA WILEY 01/08/19 Lamotrigine* (Lamotrigine* ER) 25 Mg Tab.er.24, 25 MG PO as directed, #250 TAB Prov:RIKA WILEY 01/08/19 Carbamazepine* (Carbamazepine* XR) 200 Mg Tab.er.12h, 200 MG PO as directed, #180 TAB.SA Prov:RIKA WILEY 01/08/19 Reported Medications Zolpidem Tartrate* (Zolpidem Tartrate*) 5 Mg Tablet, 5 MG PO QHS PRN for INSOMNIA, #30 TAB 1 OR 2 TIMES A DAY 01/08/19 Furosemide* (Furosemide*) 20 Mg Tablet, 20 MG PO BID, #30 TAB 01/08/19 Carvedilol* (Carvedilol*) 6.25 Mg Tablet, 6.25 MG PO BID, #60 TAB 01/08/19 Potassium Chloride* (Potassium Chloride*) 20 Meq Tablet.er, 20 MEQ PO DAILY, TAB.SA 01/08/19 Benazepril Hcl* (Benazepril Hcl*) 10 Mg Tablet, 10 MG PO DAILY, #30 TAB 01/08/19 Aspirin* (Aspirin* EC) 81 Mg Tablet.dr, 81 MG PO DAILY, TAB 01/08/19 Discontinued Scripts Docusate Sodium (Dok) 100 Mg Capsule, 100 MG PO Q12H PRN for CONSTIPATION for 30 Days, CAP Prov:MO URIOSTEGUI 10/04/18 Nitroglycerin* (Nitroglycerin* SL) 0.4 Mg Tab.subl, 1 TAB SL Q5M PRN for ANGINA for 30 Days Prov:MO URIOSTEGUI 10/04/18 Isosorbide Dinitrate* (Isordil*) 10 Mg Tablet, 10 MG PO TID for 30 Days, TAB Prov:MO URIOSTEGUI 10/04/18 Benazepril Hcl* (Benazepril Hcl*) 5 Mg Tablet, 5 MG PO DAILY for 30 Days, TAB Prov:MO URIOSTEGUI 10/04/18 Carvedilol* (Coreg CR*) 20 Mg Capsr, 20 MG PO DAILY for 30 Days, #30 CAP Prov:MO URIOSTEGUI 10/04/18 Potassium Chloride* (K-Dur*) 20 Meq Tab.prt.sr, 20 MEQ PO DAILY for 30 Days, #60 TAB.SA Prov:MO URIOSTEGUI 10/04/18 Furosemide (Lasix) 20 Mg Tab, 20 MG PO BID for CHF for 30 Days, #120 TAB Prov:MO URIOSTEGUI 10/04/18 Aspirin* (Aspirin* EC) 81 Mg Tablet.dr, 81 MG PO DAILY for 30 Days, #100 TAB Prov:MO URIOSTEGUI 10/04/18 Allergies Allergies: Coded Allergies: No Known Allergy (Unverified , 01/11/19) PMhx/Soc History of Surgery: Yes (LT ARM SURGERY) Anesthesia Reaction: No Hx Neurological Disorder: No Hx Respiratory Disorders: No Hx Cardiac Disorders: Yes (CARDIOMYOPATHY;HIGH BLOOD PRESSURE;CHF) Hx Psychiatric Problems: No Hx Miscellaneous Medical Probl: No Hx Alcohol Use: No Hx Substance Use: Yes (MARIJUANA, METH) Hx Tobacco Use: Yes Smoking Status: Unknown if ever smoked FmHx Family History: No diabetes Physical Exam Vitals Vital Signs Date Temp Pulse Resp B/P (MAP) Pulse Ox O2 O2 Flow FiO2 Time Delivery Rate 01/11/19 Nasal 2.0 00:38 Cannula 01/11/19 Nasal 2 00:37 Cannula 01/10/19 97.8 98 20 132/95 98 22:58 (107) Physical Exam Const: No apparent distress, well-developed, well-nourished Head: Normocephalic, Atraumatic Eyes: Normal Conjunctiva. Extraocular movements intact. Pupils equal, round and reactive to light ENT: Normal External Ears, Nose and Mouth. Neck: Full range of motion. No meningismus. Resp: Clear to auscultation bilaterally, No wheezes, rales or rhonchi Cardio: Regular rhythm. Tachycardia. No murmurs, rubs or gallops Abd: Soft, non tender, non distended. Normal bowel sounds Skin: No petechiae or rashes Back: No midline tenderness. No CVA tenderness Ext: No cyanosis, or edema Neur: Awake and alert, oriented 4. Cranial nerves intact. No facial droop. Normal strength, sensation and coordination. Psych: Bizarre odd affect Result Diagram: 01/11/19 0030 01/11/19 0030 Results 24 hrs Laboratory Tests Test 01/11/19 00:30 01/11/19 01:30 White Blood Count 13.6 10^3/ul Red Blood Count 6.26 10^6/ul Hemoglobin 16.9 g/dl Hematocrit 53.3 % Mean Corpuscular Volume 85.1 fl Mean Corpuscular Hemoglobin 27.0 pg Mean Corpuscular Hemoglobin Concent 31.7 g/dl Red Cell Distribution Width 17.4 % Platelet Count 378 10^3/UL Mean Platelet Volume 9.9 fl Immature Granulocytes % 0.400 % Neutrophils % 66.2 % Lymphocytes % 20.4 % Monocytes % 8.4 % Eosinophils % 3.7 % Basophils % 0.9 % Nucleated Red Blood Cells % 0.0 /100WBC Immature Granulocytes # 0.060 10^3/ul Neutrophils # 9.0 10^3/ul Lymphocytes # 2.8 10^3/ul Monocytes # 1.2 10^3/ul Eosinophils # 0.5 10^3/ul Basophils # 0.1 10^3/ul Nucleated Red Blood Cells # 0.0 10^3/ul Prothrombin Time 14.7 Sec Prothrombin Time Ratio 1.1 INR International Normalized Ratio 1.14 Sodium Level 139 mmol/L Potassium Level 5.3 mmol/L Chloride Level 103 mmol/L Carbon Dioxide Level 26 mmol/L Anion Gap 10 Blood Urea Nitrogen 29 mg/dl Creatinine 1.31 mg/dl Est Glomerular Filtrat Rate mL/min > 60 mL/min Glucose Level 97 mg/dl Calcium Level 9.6 mg/dl Total Bilirubin 0.9 mg/dl Direct Bilirubin 0.00 mg/dl Indirect Bilirubin 0.9 mg/dl Aspartate Amino Transf (AST/SGOT) 61 IU/L Alanine Aminotransferase (ALT/SGPT) 242 IU/L Alkaline Phosphatase 105 IU/L Troponin I 0.031 ng/ml B-Type Natriuretic Peptide 03172 PG/ML Total Protein 6.7 g/dl Albumin 3.9 g/dl Globulin 2.80 g/dl Albumin/Globulin Ratio 1.39 Ethyl Alcohol Level < 10.0 mg/dl Urine Opiates Screen Negative Urine Barbiturates Negative Urine Amphetamines Screen Negative Urine Benzodiazepines Screen Negative Urine Cocaine Screen Negative Urine Cannabinoids Negative Current Medications Medications Dose Sig/Braxton Start Time Status Last (Trade) Ordered Route PRN Stop Time Admin Dose Reason Admin Lorazepam 1 mg ONCE ONCE 01/11/19 DC 01/11/19 (Ativan) IV 02:30 02:37 01/11/19 02:31 Sodium 500 ml @ Q1H ONCE 01/11/19 Chloride 500 mls/hr IV 04:00 01/11/19 04:59 Sodium 100 ml @ ud STK-MED 01/11/19 DC Chloride ONCE .ROUTE 03:45 01/11/19 03:46 Iodixanol 100 ml STK-MED 01/11/19 DC (Visipaque ONCE .ROUTE 03:45 Locm) 01/11/19 03:46 Procedures/MDM MDM The patient's presentation warrants further investigation. Previous medical rec ords, if available, were reviewed. LABS The patient's laboratory testing was obtained and reviewed. No emergent treatment was required unless described below. CBC: Leukocytosis without shift, likely reactive, low clinical suspicion for a systemic infection. No anemia or thrombocytopenia. Chemistry: No E/o severe acidosis or alkalosis or renal failure or liver disease or diabetic ketoacidosis. Mild hyperkalemia, not emergent. Elevated BUN and creatinine in line with previous studies, indicating chronic kidney disease. Transaminitis, chronic PT/INR: No E/o significant coagulopathy Troponin: No E/o acute ischemia BNP: Elevated, in line with his last study with low clinical suspicion for an acute exacerbation. Tox: No E/o alcohol abuse. No E/o illicit drug use. EKG EKG read by me: Rate/Rhythm: Sinus tachycardia at 103 bpm Intervals: Normal Warner: Left axis deviation Impression: No evidence of acute ischemia. Sinus tachycardia. IMAGING Imaging and Radiology interpretation reviewed. CXR FINDINGS: The cardiac silhouette is enlarged. The aortic arch is unremarkable. There is mild pulmonary venous congestion. There is no focal consolidation or pleural effusion. There is no pneumothorax. IMPRESSION: Moderate cardiomegaly and mild pulmonary venous congestion. Electronically viewed and signed by Yan Bean MD, MD on 01/11/2019 01:34 TREATMENT/DISPOSITION The patient presents with chest pain and shortness of breath. The patient is very anxious in the room. He does also have a very odd affect with bizarre behavior. I do suspect anxiety to be a possible etiology of his symptoms today. The patient does have bipolar disorder, but he does not appear to be in an acutely manic state. He is not suicidal or homicidal. He is not endorsing auditory visual hallucinations. I do not suspect acute psychosis, and I do not feel the patient is a danger to himself or others. I do not feel the patient requires further psychiatric assessment today. The patient does have a known history of heart failure. The patient's BNP is elevated, as it was several days ago. The patient's chest xray does demonstrate cardiomegaly with mild pulmonary congestion indicating chronic heart failure. That said, there is no clinical or radiographic evidence of an acute heart failure exacerbation. The patient is oxygenating 100% on room air and his lungs are clear on auscultation. The patient has an appointment with his coke drawer next week, which I do feel is appropriate. All the patient endorses chest pain when he is alone in the room, when you go into the room to speak to him he calms down and does not appear to be in any distress. The chest x-ray does not reveal pneumonia or pneumothorax or pleural effusions. The patient does not have a widened mediastinum and does not have signs or symptoms concerning for thoracic aortic aneurysm or dissection. The patient does not have pneumomediastinum or signs concerning for esophageal tear or rupture. The patient has no clinical or radiographic signs of pericardial effusion or tamponade. The patient does not have pneumoperitoneum and I have decreased suspicion of viscus perforation as possible referred pain. The patient does not have a diagnosis of COPD and is not wheezing today. The patient is not tachypneic or hypoxic. The patient is not on hormonal therapy. The patient has no history of clotting or bleeding disorders. The patient has no calf tenderness. The patient has had no hemoptysis. I have decreased suspicion for PE. I discussed the possibility of obtaining a CTA of the chest to evaluate this further. The patient initially agreed to the study, but he later refused indicating that he did not want to be in the CT scanner. The patient understands that without obtaining the CT, I cannot definitively evaluate for pulmonary embolism. That said, as stated above, I have low suspicion for pulmonary embolism given other more likely etiologies. The patient's EKG does not reveal cardiac ischemia. The patient's troponin is within normal limits. I have low suspicion for acute coronary syndrome. The patient's HEART score is equal to or less than 3. This stratifies the patient into the low risk (<1%) group for an major adverse cardiac event within the next 30 days. Shared decision making was enacted. The risks and benefits of admission and discharge were discussed with the patient and it was ultimately decided that the patient would be discharged with close outpatient follow up and evaluation for functional testing within 72 hours. The patient was given a dose of Ativan in the emergency department with improvement of his symptoms. DISCHARGE Upon reevaluation of the patient, symptoms have improved. No emergent diagnoses were identified. At this time, I feel that the patient stable for discharge. The patient was instructed to follow-up with a primary care physician in 1-3 days. The patient will be given strict precautions with which to return to the emergency department. Prescriptions: None The patient's blood pressure was elevated at greater than 120/80 while in the emergency department. The patient was otherwise stable with no evidence of hypertensive urgency or emergency. The patient does not require admission for blood pressure control. I have discussed with the patient the risks of hypertension. I have instructed the patient to return to the ER for any new or worsening symptoms including chest pain, shortness of breath, headache, blurred vision, confusion, nausea, vomiting or LOC. I have advised the patient to follow up with the primary care physician for outpatient monitoring and treatment for hypertension in 1-3 days. Disclaimer: Inadvertent spelling and grammatical errors are likely due to EHR/dictation software use and do not reflect on the overall quality of patient care. Note that the electronic time recorded on this note does not necessarily reflect the actual time of the patient encounter. Departure Diagnosis: Primary Impression: Nonspecific chest pain Additional Impressions: Anxiousness Tachycardia Leukocytosis Leukocytosis type: unspecified Qualified Codes: D72.829 - Elevated white blood cell count, unspecified Hyperkalemia Chronic kidney disease Chronic kidney disease stage: unspecified stage Qualified Codes: N18.9 - Chronic kidney disease, unspecified Transaminitis Chronic CHF Heart failure type: unspecified Qualified Codes: I50.9 - Heart failure, unspecified Condition: Stable Patient Instructions: Chest Pain, Uncertain Cause, Anxiety Reaction, Sinus Tachycardia Additional Instructions: Thank you for for coming to [facility] for your care today. Please ask your nurse or provider if you have questions about your care today and do not leave until all your questions have been answered. Please use any medications given as directed and follow-up with your doctor (or the doctor you were referred to) in the next 1-3 days. If you do not have a primary care doctor you may follow up at the [facility] or [facility] (listed below). You may also use motrin and tylenol as needed for fever and/or pain unless instructed otherwise by your provider or nurse. Indications for more urgent follow-up have been discussed, but you may return to the Emergency Department at ANY time for any worrisome or worsening symptoms. If you have abdominal pain, please know that no test or exam you received is perfect and you should follow up within 8 hours for continued pain. If you had any imaging studies today, such as an X-Ray or CT Scan, these studies will be reviewed later by a radiologist. You will be called if there are important findings that were not identified today, so make sure the contact information you provided at registration is correct. If you received any narcotic pain control medicine today, such as Vicodin, Morphine or Dilaudid, your coordination and judgment may be affected for a numb er of hours. Please do not drive or operate heavy machinery, and you may want someone to assist you at home. If you were given a prescription for narcotic medication, be aware that it is very addictive- use sparingly and only if necessary. PLEASE SEEK FURTHER EVALUATION AND MANAGEMENT AT YOUR DOCTORS OFFICE WITHIN THE NEXT 1-3 DAYS. IT IS YOUR RESPONSIBILITY TO MAKE AN APPOINTMENT FOR FOLOW-UP CA RE. IF YOU HAVE A PRIMARY DOCTOR, PLEASE CALL THEIR OFFICE TO SCHEDULE AN APPOINTMENT FOR FOLLOW UP. IF YOU DO NOT HAVE A PRIMARY DOCTOR YOU CAN CALL OUR PHYSICIAN REFERRAL HOTLINE AT IF YOU CAN NOT AFFORD TO SEE A PHYSICIAN YOU CAN CHOSE FROM THE FOLLOWING [facility]: [facility] [address] [facility] [address] [facility] [facility] [address] [facility] [address] [facility]. [facility] [address] [facility]. [facility]. [address] PHILIPPE MADDOX MD Jan 11, 2019 04:39
[2019-01-11 05:35] VITALS: BP 125/103; PULSE 103; RESP 23
== END 2019-01-11 05:35 | disposition home or self-care (01) ==
LOC: E/R 22:41
DX: F41.9 Anxiety disorder, unspecified (principal); D72.829 Elevated white blood cell count, unspecified; E87.5 Hyperkalemia; I12.9 Hypertensive chronic kidney disease with stage 1 through stage 4 chronic kidney disease, or unspecified chronic kidney disease; N18.9 Chronic kidney disease, unspecified; R74.0 Nonspecific elevation of levels of transaminase and lactic acid dehydrogenase [LDH]; I11.0 Hypertensive heart disease with heart failure; I50.9 Heart failure, unspecified; Z87.891 Personal history of nicotine dependence; Z79.82 Long term (current) use of aspirin
CPT/HCPCS: 36415; 71045; 80053; 80307; 83880; 84484; 85025; 85610; 93005; 96374; J2060; J7040; Q9967; Z7502; Z7610

== ENCOUNTER 2019-01-14 22:22 | Inpatient (IN) | payer OTHER ==
[~2019-01-14] VITALS: Ht 175.3 cm; Wt 112.8 kg
[2019-01-15 00:03] VITALS: BP 129/79; PULSE 112
[2019-01-15 00:25] VITALS: Ht 175.3 cm; Wt 112.8 kg
[2019-01-15] MEDS ORDERED: ACETAMINOPHEN 325 MG TAB PO PRN (02:00)
[2019-01-15] MEDS ORDERED: SOD CHLORIDE 0.9% 1,000 ML IV SCH (02:00)
[2019-01-15] MEDS: morphine 2 MG INJ IV PRN ×2 (04:06→22:19)
[2019-01-15 07:40] VITALS: BP 118/79; PULSE 88; RESP 18
[2019-01-15] MEDS: CEFTRIAXONE 1 GM/50 ML (PMX) 50 ML IVPB SCH (09:41)
[2019-01-15] MEDS: metroNIDAZOLE 500 MG/NS (PMX) 100 ML IVPB SCH ×3 (09:41→22:17)
--- NOTE | 2019-01-15 10:42 | CONS ---
Assessment/Plan Assessment/Plan Hospital Course (Demo Recall) 1. Cholelithiasis with concern for cholecystitis -HIDA scan -Clear liquids okay after HIDA scan -Antibiotics 2. Abdominal pain: 2/2? Symptomatic cholelithiasis versus possible cholecystitis versus other -As above -Pain management 3. Minimally elevated ALT: -Trend 4. Leukocytosis: Improving -As above 5. Significantly elevated BNP with concern for CHF exacerbation -Cardiac optimization -Fluid management 6. Hypertension: -Medical management -Highly encouraged weight loss 7. Severe obesity BMI: 37 -diet and exercise optimization -encourage weight loss 8. Urinary hesitancy: -Work-up per medical team Thank you. Patient seen and examined in collaboration with Dr. Jase Ramirez. Consultation Date/Type/Reason Admit Date/Time Jan 14, 2019 at 23:58 Type of Consult Surgical Reason for Consultation Cholecystitis Requesting Provider: GINI JUNIOR MD Date/Time of Note DATE: 01/15/19 TIME: 10:14 Hx of Present Illness Domonique Sparks is a 38-year-old man with past medical history of CHF, hypertension, cellulitis of the scalp with abscess status post I&D, history of, sewing needle removed from foot who presented to outside hospital with complaints of abdominal pain. Abdominal pain has been present for several days, predominantly in the mid epigastric region with intermittent radiation to the right flank. Exacerbating factors include fatty meals. No alleviating factors noted. Associated symptoms include nausea with vomiting, nonbloody emesis, shortness of breath, as well as urinary hesitancy. He denies fevers, chills, congested coug h, chest pain, palpitations, diarrhea, dysuria, skin or scleral changes. Laboratory findings significant for elevated WBC, slightly elevated ALT and BNP of 19,266. Ultrasound of the abdomen was performed showing contracted gallbladder with multiple shadowing gallstones, mild gallbladder wall thickening without pericholecystic fluid. General surgery was asked to evaluate. 12 point review of systems was performed and is negative except for as stated in HPI. Past Medical History As above Home Meds Active Scripts Quetiapine Fumarate* (Seroquel*) 100 Mg Tablet, 100 MG PO as directed, #20 TAB Prov:RIKA WILEY 01/08/19 Lamotrigine* (Lamotrigine* ER) 25 Mg Tab.er.24, 25 MG PO as directed, #250 TAB Prov:RIKA WILEY 01/08/19 Carbamazepine* (Carbamazepine* XR) 200 Mg Tab.er.12h, 200 MG PO as directed, #180 TAB.SA Prov:RIKA WILEY 01/08/19 Reported Medications Zolpidem Tartrate* (Zolpidem Tartrate*) 5 Mg Tablet, 5 MG PO QHS PRN for INSOMNIA, #30 TAB 1 OR 2 TIMES A DAY 01/08/19 Furosemide* (Furosemide*) 20 Mg Tablet, 20 MG PO BID, #30 TAB 01/08/19 Carvedilol* (Carvedilol*) 6.25 Mg Tablet, 6.25 MG PO BID, #60 TAB 01/08/19 Potassium Chloride* (Potassium Chloride*) 20 Meq Tablet.er, 20 MEQ PO DAILY, TAB.SA 01/08/19 Benazepril Hcl* (Benazepril Hcl*) 10 Mg Tablet, 10 MG PO DAILY, #30 TAB 01/08/19 Aspirin* (Aspirin* EC) 81 Mg Tablet.dr, 81 MG PO DAILY, TAB 01/08/19 Discontinued Scripts Docusate Sodium (Dok) 100 Mg Capsule, 100 MG PO Q12H PRN for CONSTIPATION for 30 Days, CAP Prov:MO URIOSTEGUI 10/04/18 Nitroglycerin* (Nitroglycerin* SL) 0.4 Mg Tab.subl, 1 TAB SL Q5M PRN for ANGINA for 30 Days Prov:MO URIOSTEGUI 10/04/18 Isosorbide Dinitrate* (Isordil*) 10 Mg Tablet, 10 MG PO TID for 30 Days, TAB Prov:MO URIOSTEGUI 10/04/18 Benazepril Hcl* (Benazepril Hcl*) 5 Mg Tablet, 5 MG PO DAILY for 30 Days, TAB Prov:MO URIOSTEGUI 10/04/18 Carvedilol* (Coreg CR*) 20 Mg Capsr, 20 MG PO DAILY for 30 Days, #30 CAP Prov:MO URIOSTEGUI 10/04/18 Potassium Chloride* (K-Dur*) 20 Meq Tab.prt.sr, 20 MEQ PO DAILY for 30 Days, #60 TAB.SA Prov:MO URIOSTEGUI 10/04/18 Furosemide (Lasix) 20 Mg Tab, 20 MG PO BID for CHF for 30 Days, #120 TAB Prov:MALCOLMEVINMO 10/04/18 Aspirin* (Aspirin* EC) 81 Mg Tablet.dr, 81 MG PO DAILY for 30 Days, #100 TAB Prov:PITARosaMO 10/04/18 Medications Current Medications Sodium Chloride 1,000 ml @ 70 mls/hr [id number] IV Last administered on 01/15/19at 03:31; Admin Dose 70 MLS/HR; Start 01/15/19 at 02:00 Ondansetron HCl (Zofran Inj) 4 mg Q6H PRN IV NAUSEA AND/OR VOMITING; Start 01/15/19 at 02:00 Morphine Sulfate (morphine) 2 mg Q4H PRN IV SEVERE PAIN LEVEL 7-10 Last administered on 01/15/19at 04:06; Admin Dose 2 MG; Start 01/15/19 at 02:00 Acetaminophen (Tylenol Tab) 650 mg Q6H PRN PO MILD PAIN(1-3)OR ELEVATED TEMP; Start 01/15/19 at 02:00 Ceftriaxone Sodium 50 ml @ 100 mls/hr Q24H IVPB Last administered on 01/15/19at 09:41; Admin Dose 100 MLS/HR; Start 01/15/19 at 09:00 Metronidazole 100 ml @ 100 mls/hr Q8 IVPB Last administered on 01/15/19at 09:41; Admin Dose 100 MLS/HR; Start 01/15/19 at 09:00 Allergies: Coded Allergies: No Known Allergy (Unverified , 01/11/19) Past Surgical History As above Family History Significant Family History: no pertinent family hx Social History Alcohol Use: none Smoking Status: Never smoker Drug Use: marijuana Exam/Review of Systems Exam Vitals Vital Signs Date Temp Pulse Resp B/P (MAP) Pulse Ox O2 O2 Flow FiO2 Time Delivery Rate 01/15/19 98.3 88 18 118/79 93 Room Air 07:40 (92) Intake and Output 01/14/19 01/14/19 01/15/19 1515:00 23:00 07:00 IntakeIntake Total 200 ml BalanceBalance 200 ml Constitutional: alert, oriented Psych: anxiety Head: normocephalic, atraumatic Eyes: nl conjunctiva, EOMI, nl lids, nl sclera ENMT: nl external ears & nose, nl lips & teeth, mucosa pink and moist Neck: supple, non-tender Respiratory: normal air movement; No congested cough, No labored breathing Cardiovascular: regular rate and rhythm; No edema Gastrointestinal: soft, tender (Midepigastric and right upper quadrant) Musculoskeletal: nl extremities to inspection, nl gait and stance; No joint tenderness Extremities: normal pulses Neurological: nl mental status, nl speech, nl strength Skin: No rash or lesions Lymph: nl lymph nodes Results Result Diagram: 01/15/19 0442 01/15/19 0442 Results 24hrs Laboratory Tests Test 01/15/19 04:42 White Blood Count 11.4 H Red Blood Count 5.53 Hemoglobin 14.9 Hematocrit 47.4 Mean Corpuscular Volume 85.7 Mean Corpuscular Hemoglobin 26.9 L Mean Corpuscular Hemoglobin Concent 31.4 L Red Cell Distribution Width 16.7 H Platelet Count 282 # Mean Platelet Volume 10.0 Immature Granulocytes % 0.600 H Neutrophils % 61.3 Lymphocytes % 22.8 Monocytes % 9.1 Eosinophils % 5.5 Basophils % 0.7 Nucleated Red Blood Cells % 0.0 Immature Granulocytes # 0.070 H Neutrophils # 7.0 Lymphocytes # 2.6 Monocytes # 1.0 H Eosinophils # 0.6 H Basophils # 0.1 Nucleated Red Blood Cells # 0.0 Sodium Level 142 Potassium Level 4.8 Chloride Level 106 Carbon Dioxide Level 28 Anion Gap 8 Blood Urea Nitrogen 23 H Creatinine 1.20 Est Glomerular Filtrat Rate mL/min > 60 Glucose Level 91 Calcium Level 9.2 Total Bilirubin 1.0 Direct Bilirubin 0.00 Indirect Bilirubin 1.0 Aspartate Amino Transf (AST/SGOT) 32 Alanine Aminotransferase (ALT/SGPT) 85 H Alkaline Phosphatase 89 Total Protein 5.8 L Albumin 3.3 Globulin 2.50 Albumin/Globulin Ratio 1.32 Medications Medication Current Medications Sodium Chloride 1,000 ml @ 70 mls/hr [id number] IV Last administered on 01/15/19at 03:31; Admin Dose 70 MLS/HR; Start 01/15/19 at 02:00 Ondansetron HCl (Zofran Inj) 4 mg Q6H PRN IV NAUSEA AND/OR VOMITING; Start 01/15/19 at 02:00 Morphine Sulfate (morphine) 2 mg Q4H PRN IV SEVERE PAIN LEVEL 7-10 Last ad ministered on 01/15/19at 04:06; Admin Dose 2 MG; Start 01/15/19 at 02:00 Acetaminophen (Tylenol Tab) 650 mg Q6H PRN PO MILD PAIN(1-3)OR ELEVATED TEMP; Start 01/15/19 at 02:00 Ceftriaxone Sodium 50 ml @ 100 mls/hr Q24H IVPB Last administered on 01/15/19at 09:41; Admin Dose 100 MLS/HR; Start 01/15/19 at 09:00 Metronidazole 100 ml @ 100 mls/hr Q8 IVPB Last administered on 01/15/19at 09:41; Admin Dose 100 MLS/HR; Start 01/15/19 at 09:00 PARKER LOVING NP January 15, 2019 10:35
--- NOTE | 2019-01-15 12:29 | QN ---
Documentation Comment SEEN AND EXAMINED GINI JUNIOR MD January 15, 2019 12:29
[2019-01-15 14:00] VITALS: BP 124/94; PULSE 101; RESP 18
--- NOTE | 2019-01-15 14:43 | HP ---
DATE OF ADMISSION: 01/14/2019 The patient is transferred from [facility] secondary to abdominal pain. HISTORY OF PRESENTING ILLNESS: This is a 38-year-old male with a past medical history of hypertensio n, hyperlipidemia, drug abuse, history of amphetamine and cocaine use, history of congestive heart fa ilure diagnosed in 2016, EF of 20% to 25%, presented to [facility] on 01/14/2019 secondary t o evaluation of abdominal pain. The patient stated that he has a history of gallstone. He developed acute abdominal pain, worse over the past 3 weeks. He was having some episodes of nausea and vomiti ng. According to the patient, he also told me that he was having shortness of breath for past few da ys. He has a history of CHF. He has been taking his Lasix at home. He was supposed to see his card iologist today. He was seen in the [facility] ER and he was paced on psych medicines and wa s discharged home and that is why he went to [place] for further assessment. There, the patient w as found to have white count of 13.0, potassium of 5.0, sodium 138, BUN of 24, creatinine 1.31, AST 3 5, ALT , lipase 26, troponin less than 0.01, BNP 1926. The patient had an abdominal ultrasound that showed gallbladder contracted, multiple shadowing gallstones, mild gallbladder wall thickening, no pericholecystic fluid, coarsened architecture of liver suggestive of cirrhosis, simple left renal cyst, incidental right small pleural effusion. The patient was given IV antibiotics and was transfer red to [facility] due to insurance reasons. Primarily, I was told that patient had cholecys titis. PAST MEDICAL HISTORY: 1. History of congestive heart failure, nonischemic with EF of 20% to 25%. 2. Hypertension. 3. Drug abuse. 4. History of bronchitis. ALLERGIES: NONE. PAST SURGICAL HISTORY: None. MEDICATIONS TAKING AT HOME: 1. Coreg. 2. Aspirin. 3. Sutter. 4. Lasix. 5. Potassium. SOCIAL HISTORY: Still has been using cocaine, marijuana. Denies any amphetamine use. Lives with hi s father. FAMILY HISTORY: Significant for grandfather who because of heart failure and grandmother also d ied of heart failure. REVIEW OF SYSTEMS: The patient complains of abdominal pain, nausea, vomiting, some intermittent chil ls. The patient also complains of shortness of breath. Denies any lower extremity edema. Denies an y headache, any blurry vision, any hematemesis, any melena, any bright red blood per rectum. PHYSICAL EXAMINATION: VITAL SIGNS: Currently, blood pressure of 118/79, afebrile, heart rate 88, respirations 18. GENERAL: The patient is awake, alert, oriented, does not appear to be in any acute distress. HEENT: Pupils are equal, round, reactive to light. No scleral icterus. NECK: Supple. HEART: Regular rate and rhythm. LUNGS: Decreased breath sounds bilaterally. ABDOMEN: Obese. Some tenderness present in the epigastric region. Positive bowel sounds. EXTREMITIES: Trace edema. LABORATORY DATA: Showed here white count of 11.4, platelet count 282. BMP within normal limit. BUN of 23, creatinine 1.20. AST 32, ALT 85, alkaline phosphatase 89, total bilirubin 1. ASSESSMENT AND PLAN: This is a 38-year-old male who presented with: 1. Shortness of breath likely secondary to congestive heart failure with the patient has ejection fr action of 20% to 25% in the past. 2. Abdominal pain, rule out cholecystitis. 3. Nonischemic cardiomyopathy with an ejection fraction of 20% to 25%. 4. History of hypertension. 5. History of drug abuse. 6. History of bipolar disorder. PLAN: At this period of time, the patient is admitted to med/surg. The patient is on clear liquids, started on IV antibiotics and gentle IV fluids. The patient will also need cardiac optimization. W e will get EKG, troponin and echo. Cardiology consultation will be requested. HIDA will be obtained . The patient has also got surgery consultation. Rest of the treatment will depend on the patient's hospitalization course. Dictated By: GINI JAIMES/VIC Conf#: [id number] DID#: [id number] CC: TIMOTHY CHOE MD;*EndCC*
[2019-01-15] MEDS: FUROSEMIDE 20 MG INJ IV SCH (15:21)
[2019-01-15] MEDS: BENAZEPRIL 10 MG TAB PO SCH (15:21)
[2019-01-15 19:57] VITALS: BP 113/66; RESP 18
--- NOTE | 2019-01-15 22:46 | RADRPT ---
Echocardiogram Report Patient Name: Nivia AMOS ID: [id number] : 1980 (38y 11m)Study Date: 01/15/2019 1:28:55 PM Gender: MAccession #: [id number] Tech: Jason Marley RDCS Location: EKG Ref.Physician: GINI JUNIOR Height(Cm): BSA: Weight(Kg): Quality: AdequateAccount #: Procedures: Echocardiographic Report: Transthoracic echocardiogram with complete 2D, M-Mode, and doppler examination. Indications: Congestive Heart Failure. Measurements: 2D/M Mode Doppler Measurement Value Normal Range Measurement Value Normal Range LVIDd 2D 6.6 [ 4.2 - 5.8 ] cm AV Peak Rocco 0.9 [ 100.0 - 170.0 ] cm/sec LVIDs 2D 6.3 [ 2.5 - 4.0 ] cm AV Peak PG 3.0 [ 2.0 - 9.0 ] mmHg LVPWd 2D 1.1 [ 0.6 - 1.0 ] cm LVOT Peak Rocco 0.8 [ 70.0 - 110.0 ] cm/sec IVSd 2D 1.0 [ 0.6 - 1.0 ] cm LVOT Peak PG 3.0 [ 2.0 - 6.0 ] mmHg AoR Diam 2D 2.9 [ 2.6 - 3.4 ] cm MV E Peak Rocco 0.8 [ 60.0 - 130.0 ] cm/sec EDV 2D 222.0 [ 62.0 - 150.0 ] ml MV Decel Time 120 [ 104 - 258 ] msec ESV 2D 205.0 [ 21.0 - 61.0 ] ml Lat E` Rocco 0.1 [ 10.0 - 15.0 ] cm/sec EF 2D 7.7 [ 52.0 - 72.0 ] percent Lateral E/E` 13.6 [ 1.0 - 2.0 ] ratio LA Dimen 2D 4.1 [ 3.0 - 4.0 ] cm TR Peak Rocco 3.3 [ 100.0 - 280.0 ] cm/sec TR Peak PG 44.0 mmHg RVSP 59.0 [ 10.0 - 36.0 ] mmHg RA Pressure 15.0 mmHg Findings: Left Ventricle: Moderate concentric left ventricular hypertrophy. Moderate enlargement of left ventricle cavity. Severe left ventricular systolic dysfunction. Ejection fraction is visually estimated at 25 %. Tissue Doppler/Mitral Doppler indices are consistent with pseudonormalization with mildly elevated left atrial pressure (Stage II diastolic dysfunction). Right Ventricle: Normal right ventricular size. Normal right ventricular systolic function. Left Atrium: There is mild enlargement of left atrium. Right Atrium: The right atrium is normal in size. Mitral Valve: Mitral valve leaflets appear mildly thickened. Mild mitral annular calcification. Mild mitral valve regurgitation. Aortic Valve: Normal appearance of the aortic valve. No significant aortic stenosis or insufficiency. Tricuspid Valve: Normal appearance of the tricuspid valve. Estimated peak PA systolic pressure 59 mmHg. There is mild tricuspid regurgitation. Pulmonic Valve: Normal pulmonic valve appearance. Pericardium: Normal pericardium with no significant pericardial effusion. Aorta: Normal aortic root. IVC: Dilated IVC without respiratory collapse consistent with elevated right atrial pressure. Conclusions: Moderate concentric left ventricular hypertrophy. Moderate enlargement of left ventricle cavity. Severe left ventricular systolic dysfunction. Ejection fraction is visually estimated at 25 %. Tissue Doppler/Mitral Doppler indices are consistent with pseudonormalization with mildly elevated left atrial pressure (Stage II diastolic dysfunction). Normal right ventricular size. Normal right ventricular systolic function. There is mild enlargement of left atrium. The right atrium is normal in size. Mild mitral valve regurgitation. No significant aortic stenosis or insufficiency. Estimated peak PA systolic pressure 59 mmHg. There is mild tricuspid regurgitation. Normal pericardium with no significant pericardial effusion. Electronically Signed By: Sawyer Sullivan 2019-01-15 22:45:39 PDT
[2019-01-16] VITALS (14 sets, daily range): BP systolic 93–104; BP diastolic 47–66; PULSE 66–98; RESP 16–18
[2019-01-16] MEDS ORDERED: NITROGLYCERIN (SL) 0.4 MG TAB ONE (01:53)
[2019-01-16] MEDS ORDERED: NITROGLYCERIN (SL) 0.4 MG TAB SL PRN (02:00)
[2019-01-16] MEDS: morphine 2 MG INJ IV PRN (02:07)
[2019-01-16] MEDS: ONDANSETRON 4 MG INJ IV PRN (02:10)
[2019-01-16] MEDS: metroNIDAZOLE 500 MG/NS (PMX) 100 ML IVPB SCH ×3 (05:57→21:03)
[2019-01-16] MEDS: ASPIRIN 81 MG TAB PO SCH (09:45)
--- NOTE | 2019-01-16 09:48 | PN ---
Date/Time of Note Date/Time of Note DATE: 01/16/19 TIME: 09:47 Assessment/Plan VTE Prophylaxis Risk score (from Ns)>0 risk: 0 SCD applied (from [facility]): No SCD contraindicated: low risk/ambulating Pharmacological prophylaxis: NA/contraindicated Pharm contraindication: low risk/ambulating Lines/Catheters IV C[facility]ter Type (from [facility]): Peripheral IV Urinary Cath still in place: No Assessment/Plan Hospital Course is is a 38-year-old male who presented with: 1. Shortness of breath likely secondary to congestive heart failure with the patient has ejection fraction of 20% to 25% in the past. 2. Abdominal pain, rule out cholecystitis.HIDA neg 3. Nonischemic cardiomyopathy with an ejection fraction of 20% to 25%. 4. History of hypertension. 5. History of drug abuse. 6. History of bipolar disorder. PLAN - cld - Still abdominal pain even though HIDA neg? surgery - Will need cardiac clearence - cw Lasix/b olegario/asa - cw rocephin/flagyl Result Diagram: 01/16/19 0553 01/16/19 0553 Results 24hrs Laboratory Tests Test 01/15/19 15:17 01/16/19 02:38 01/16/19 05:53 Troponin I 0.037 0.055 White Blood Count 7.7 # Red Blood Count 5.19 Hemoglobin 14.1 Hematocrit 43.7 Mean Corpuscular Volume 84.2 Mean Corpuscular Hemoglobin 27.2 L Mean Corpuscular Hemoglobin Concent 32.3 Red Cell Distribution Width 16.0 H Platelet Count 243 Mean Platelet Volume 9.8 Immature Granulocytes % 0.500 H Neutrophils % 64.7 Lymphocytes % 17.7 Monocytes % 9.4 Eosinophils % 7.3 H Basophils % 0.4 Nucleated Red Blood Cells % 0.0 Immature Granulocytes # 0.040 H Neutrophils # 5.0 Lymphocytes # 1.4 Monocytes # 0.7 Eosinophils # 0.6 H Basophils # 0.0 Nucleated Red Blood Cells # 0.0 Sodium Level 140 Potassium Level 4.3 Chloride Level 105 Carbon Dioxide Level 28 Anion Gap 7 Blood Urea Nitrogen 18 Creatinine 0.96 Est Glomerular Filtrat Rate mL/min > 60 Glucose Level 98 Calcium Level 9.2 Phosphorus Level 3.9 Magnesium Level 1.8 Total Bilirubin 0.9 Direct Bilirubin 0.00 Indirect Bilirubin 0.9 Aspartate Amino Transf (AST/SGOT) 23 Alanine Aminotransferase (ALT/SGPT) 68 Alkaline Phosphatase 85 Total Protein 5.6 L Albumin 2.9 L Globulin 2.70 Albumin/Globulin Ratio 1.07 Subjective 24 Hr Interval Summary Free Text/Dictation Pt had abdominal pain > yesterday transferred due to cp ?? some nausea Exam/Review of Systems Exam Vitals Vital Signs Date Temp Pulse Resp B/P (MAP) Pulse Ox O2 O2 Flow FiO2 Time Delivery Rate 01/16/19 81 08:10 01/16/19 98.1 18 93/53 (66) 94 07:31 01/16/19 2.0 01:50 01/15/19 Room Air 07:40 Intake and Output 01/15/19 01/15/19 01/16/19 1515:00 23:00 07:00 IntakeIntake Total 550 ml 580 ml 200 ml BalanceBalance 550 ml 580 ml 200 ml Exam TTP ruq Results Results 24hrs Laboratory Tests Test 01/15/19 15:17 01/16/19 02:38 01/16/19 05:53 Troponin I 0.037 0.055 White Blood Count 7.7 # Red Blood Count 5.19 Hemoglobin 14.1 Hematocrit 43.7 Mean Corpuscular Volume 84.2 Mean Corpuscular Hemoglobin 27.2 L Mean Corpuscular Hemoglobin Concent 32.3 Red Cell Distribution Width 16.0 H Platelet Count 243 Mean Platelet Volume 9.8 Immature Granulocytes % 0.500 H Neutrophils % 64.7 Lymphocytes % 17.7 Monocytes % 9.4 Eosinophils % 7.3 H Basophils % 0.4 Nucleated Red Blood Cells % 0.0 Immature Granulocytes # 0.040 H Neutrophils # 5.0 Lymphocytes # 1.4 Monocytes # 0.7 Eosinophils # 0.6 H Basophils # 0.0 Nucleated Red Blood Cells # 0.0 Sodium Level 140 Potassium Level 4.3 Chloride Level 105 Carbon Dioxide Level 28 Anion Gap 7 Blood Urea Nitrogen 18 Creatinine 0.96 Est Glomerular Filtrat Rate mL/min > 60 Glucose Level 98 Calcium Level 9.2 Phosphorus Level 3.9 Magnesium Level 1.8 Total Bilirubin 0.9 Direct Bilirubin 0.00 Indirect Bilirubin 0.9 Aspartate Amino Transf (AST/SGOT) 23 Alanine Aminotransferase (ALT/SGPT) 68 Alkaline Phosphatase 85 Total Protein 5.6 L Albumin 2.9 L Globulin 2.70 Albumin/Globulin Ratio 1.07 Medications Medication Current Medications Ondansetron HCl (Zofran Inj) 4 mg Q6H PRN IV NAUSEA AND/OR VOMITING Last administered on 01/16/19 02:10; Admin Dose 4 MG; Start 01/15/19 at 02:00 Morphine Sulfate (morphine) 2 mg Q4H PRN IV SEVERE PAIN LEVEL 7-10 Last administered on 01/16/19 02:07; Admin Dose 2 MG; Start 01/15/19 at 02:00 Acetaminophen (Tylenol Tab) 650 mg Q6H PRN PO MILD PAIN(1-3)OR ELEVATED TEMP; Start 01/15/19 at 02:00 Ceftriaxone Sodium 50 ml @ 100 mls/hr Q24H IVPB Last administered on 01/15/19 09:41; Admin Dose 100 MLS/HR; Start 01/15/19 at 09:00 Metronidazole 100 ml @ 100 mls/hr Q8 IVPB Last administered on 01/16/19 05:57; Admin Dose 100 MLS/HR; Start 01/15/19 at 09:00 Benazepril HCl (Lotensin) 10 mg DAILY PO Last administered on 01/15/19 15:21; Admin Dose 10 MG; Start 01/15/19 at 13:30 Carvedilol (Coreg) 6.25 mg BID PO Last administered on 01/15/19 21:43; Admin Dose 6.25 MG; Start 01/15/19 at 13:30 Furosemide (Lasix) 20 mg DAILY IV Last administered on 01/15/19 15:21; Admin Dose 20 MG; Start 01/15/19 at 13:30 Nitroglycerin (Nitroglycerin (Sl Tab) 0.4 Mg) 1 tab Q5M PRN SL ANGINA; Start 01/16/19 at 02:00 Aspirin (Aspirin) 81 mg DAILY PO Last administered on 01/16/19 09:45; Admin Dose 81 MG; Start 01/16/19 at 09:00 GINI JUNIOR MD January 16, 2019 09:48
--- NOTE | 2019-01-16 10:51 | PN ---
Date/Time of Note Date/Time of Note DATE: 01/16/19 TIME: 10:43 Assessment/Plan Lines/Catheters IV Catheter Type (from [facility]): Peripheral IV Luque in Place (from [facility]): No Assessment/Plan Chief Complaint/Hosp Course 1. Cholelithiasis with concern for cholecystitis; HIDA scan negative however continues to have abdominal pain -Patient agreeable for cholecystectomy however will need cardiac clearance -Antibiotics 2. Abdominal pain: 2/2? Symptomatic cholelithiasis versus possible cholecystitis versus other -As above -Pain management 3. Minimally elevated ALT: -Trend 4. Leukocytosis: Normalized -As above 5. Significantly elevated BNP with concern for CHF exacerbation -Cardiac optimization -Fluid management 6. Hypertension: -Medical management -Highly encouraged weight loss 7. Severe obesity BMI: 37 -diet and exercise optimization -encourage weight loss 8. Urinary hesitancy: -Work-up per medical team Thank you. Patient seen and examined in collaboration with Dr. Jase Ramirez. Subjective 24 Hr Interval Summary Reportedly had an episode of chest pain, however he states that it was reportedly abdominal pain instead of chest pain. Abdominal pain currently improved. No fevers, chills, sob, congested cough, cp, palpitations, inman, dizziness, nausea, vomiting, diarrhea, dysuria. WBC normalized Exam/Review of Systems Vital Signs Vitals Vital Signs Date Temp Pulse Resp B/P (MAP) Pulse Ox O2 O2 Flow FiO2 Time Delivery Rate 01/16/19 81 08:10 01/16/19 98.1 18 93/53 (66) 94 07:31 01/16/19 2.0 01:50 01/15/19 Room Air 07:40 Intake and Output 01/15/19 01/15/19 01/16/19 1515:00 23:00 07:00 IntakeIntake Total 550 ml 580 ml 200 ml BalanceBalance 550 ml 580 ml 200 ml Exam Free Text/Dictation Constitutional: alert, oriented Psych: anxiety Head: normocephalic, atraumatic Eyes: nl conjunctiva, EOMI, nl lids, nl sclera ENMT: nl external ears & nose, nl lips & teeth, mucosa pink and moist Neck: supple, non-tender Respiratory: normal air movement; No congested cough, No labored breathing Cardiovascular: regular rate and rhythm; No edema Gastrointestinal: soft, tender (Midepigastric and right upper quadrant) Musculoskeletal: nl extremities to inspection, nl gait and stance; No joint tenderness Extremities: normal pulses Neurological: nl mental status, nl speech, nl strength Skin: No rash or lesions Lymph: nl lymph nodes Results Result Diagram: 01/16/19 0553 01/16/19 0553 PARKER LOVING NP January 16, 2019 10:51
[2019-01-16] MEDS ORDERED: MAGNESIUM SULFATE 2 GM/50 ML 50 ML IVPB ONE (12:00)
--- NOTE | 2019-01-16 12:02 | CONS ---
Assessment/Plan Cardiology NYHA: II Heart Failure Type: Chronic Heart Failure Type: Systolic Assessment/Plan Hospital Course (Demo Recall) Preoperative cardiac risk stratification Gallbladder pathology Systolic congestive heart failure Severe cardia myopathy with left ventricular ejection fraction 25% Nuclear cardiac perfusion study September 2018 infarct, no ischemia Amphetamine use -Patient is planned to undergo laparoscopic cholecystectomy -Patient has decent exercise capacity, is able to climb 1 flight of stairs and stops because of fatigue but no chest pain. I did have the patient ambulate the hallways, oxygen saturation on room air was 97% and patient without shortness of breath. Chest x-ray with clear lung goff. Serial cardiac enzymes have remained negative, ECG with no significant ischemic abnormalities. -Given his severe cardia myopathy, patient is at least at an intermediate risk for any untoward cardiac events. He does appear well compensated from congestive heart failure standpoint. 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 Otherwise, if the patient remains asymptomatic and euvolemic volume status, he is optimized for his procedure. -Continue beta-olegario as heart rate and blood pressure permits Consultation Date/Type/Reason Admit Date/Time Jan 14, 2019 at 23:58 Type of Consult Cardiology Reason for Consultation Preoperative cardiac risk stratification Date/Time of Note DATE: 01/16/19 TIME: 11:53 Hx of Present Illness This is a 38-year-old male with past medical history of severe cardiomyopathy, methamphetamine use, who presents with 2 to 3 weeks of progressive worsening abdominal pain. Patient undergoing work-up and evaluation found to have evidence of cholelithiasis and possible cholecystitis. He is planned for laparoscopic cholecystectomy on this admission. He does admit to symptoms of shortness of breath more so with abdominal pain. He denies any chest discomfort, dizziness or lightheadedness. He denies exertional shortness of breath at the current time. He is able to climb 1 flight of stairs but does get tired but denies shortness of breath. Last m ethamphetamine use was 1 month ago. Denies fevers or chills, cough. Abdominal pain is slightly better. 12 point review of systems was performed with all pertinent positives and negatives mentioned above and all else is negative Past Medical History Medical History: congestive heart failure Home Meds Active Scripts Quetiapine Fumarate* (Seroquel*) 100 Mg Tablet, 100 MG PO as directed, #20 TAB Prov:INEZRIKA CABRERA 01/08/19 Lamotrigine* (Lamotrigine* ER) 25 Mg Tab.er.24, 25 MG PO as directed, #250 TAB Prov:RIKA WILEY 01/08/19 Carbamazepine* (Carbamazepine* XR) 200 Mg Tab.er.12h, 200 MG PO as directed, #180 TAB.SA Prov:RIKA WILEY 01/08/19 Reported Medications Zolpidem Tartrate* (Zolpidem Tartrate*) 5 Mg Tablet, 5 MG PO QHS PRN for INSOMNIA, #30 TAB 1 OR 2 TIMES A DAY 01/08/19 Furosemide* (Furosemide*) 20 Mg Tablet, 20 MG PO BID, #30 TAB 01/08/19 Carvedilol* (Carvedilol*) 6.25 Mg Tablet, 6.25 MG PO BID, #60 TAB 01/08/19 Potassium Chloride* (Potassium Chloride*) 20 Meq Tablet.er, 20 MEQ PO DAILY, TAB.SA 01/08/19 Benazepril Hcl* (Benazepril Hcl*) 10 Mg Tablet, 10 MG PO DAILY, #30 TAB 01/08/19 Aspirin* (Aspirin* EC) 81 Mg Tablet.dr, 81 MG PO DAILY, TAB 01/08/19 Medications Current Medications Ondansetron HCl (Zofran Inj) 4 mg Q6H PRN IV NAUSEA AND/OR VOMITING Last administered on 01/16/19at 02:10; Admin Dose 4 MG; Start 01/15/19 at 02:00 Morphine Sulfate (morphine) 2 mg Q4H PRN IV SEVERE PAIN LEVEL 7-10 Last administered on 01/16/19at 02:07; Admin Dose 2 MG; Start 01/15/19 at 02:00 Acetaminophen (Tylenol Tab) 650 mg Q6H PRN PO MILD PAIN(1-3)OR ELEVATED TEMP; Start 01/15/19 at 02:00 Ceftriaxone Sodium 50 ml @ 100 mls/hr Q24H IVPB Last administered on 01/15/19at 09:41; Admin Dose 100 MLS/HR; Start 01/15/19 at 09:00 Metronidazole 100 ml @ 100 mls/hr Q8 IVPB Last administered on 01/16/19at 05:57; Admin Dose 100 MLS/HR; Start 01/15/19 at 09:00 Benazepril HCl (Lotensin) 10 mg DAILY PO Last administered on 01/15/19at 15:21; Admin Dose 10 MG; Start 01/15/19 at 13:30 Carvedilol (Coreg) 6.25 mg BID PO Last administered on 01/15/19at 21:43; Admin Dose 6.25 MG; Start 01/15/19 at 13:30 Furosemide (Lasix) 20 mg DAILY IV Last administered on 01/15/19at 15:21; Admin Dose 20 MG; Start 01/15/19 at 13:30 Nitroglycerin (Nitroglycerin (Sl Tab) 0.4 Mg) 1 tab Q5M PRN SL ANGINA; Start 01/16/19 at 02:00 Aspirin (Aspirin) 81 mg DAILY PO Last administered on 01/16/19at 09:45; Admin Dose 81 MG; Start 01/16/19 at 09:00 Allergies: Coded Allergies: No Known Allergy (Unverified , 01/11/19) Family History Significant Family History: no pertinent family hx Social History Alcohol Use: none Smoking Status: Never smoker Drug Use: marijuana, other (Amphetamine) Other Social History Works as a [employer] Exam/Review of Systems Vital Signs Vitals Vital Signs Date Temp Pulse Resp B/P (MAP) Pulse Ox O2 O2 Flow FiO2 Time Delivery Rate 01/16/19 97 Room Air 11:46 01/16/19 98.4 81 16 95/51 (66) 11:08 01/16/19 2.0 01:50 Intake and Output 01/15/19 01/15/19 01/16/19 1515:00 23:00 07:00 IntakeIntake Total 550 ml 580 ml 200 ml BalanceBalance 550 ml 580 ml 200 ml Exam Constitutional: alert, oriented (No apparent distress, no dyspnea with speaking) Head: normocephalic Neck: supple Respiratory: other (Coarse breath sounds bilaterally, no wheezing or rales) Cardiovascular: regular rate and rhythm (S1-S2 heard) Gastrointestinal: soft, bowel sounds, tender (Mild discomfort with palpation) Extremities: other (No significant edema) Labs Result Diagram: 01/16/19 0553 01/16/19 0553 Results 24hrs Laboratory Tests Test 01/15/19 15:17 01/16/19 02:38 01/16/19 05:53 01/16/19 09:16 Troponin I 0.037 0.055 0.045 White Blood Count 7.7 # Red Blood Count 5.19 Hemoglobin 14.1 Hematocrit 43.7 Mean Corpuscular Volume 84.2 Mean Corpuscular 27.2 L Hemoglobin Mean Corpuscular 32.3 Hemoglobin Concent Red Cell Distribution 16.0 H Width Platelet Count 243 Mean Platelet Volume 9.8 Immature Granulocytes % 0.500 H Neutrophils % 64.7 Lymphocytes % 17.7 Monocytes % 9.4 Eosinophils % 7.3 H Basophils % 0.4 Nucleated Red Blood 0.0 Cells % Immature Granulocytes # 0.040 H Neutrophils # 5.0 Lymphocytes # 1.4 Monocytes # 0.7 Eosinophils # 0.6 H Basophils # 0.0 Nucleated Red Blood 0.0 Cells # Sodium Level 140 Potassium Level 4.3 Chloride Level 105 Carbon Dioxide Level 28 Anion Gap 7 Blood Urea Nitrogen 18 Creatinine 0.96 Est Glomerular Filtrat > 60 Rate mL/min Glucose Level 98 Calcium Level 9.2 Phosphorus Level 3.9 Magnesium Level 1.8 Total Bilirubin 0.9 Direct Bilirubin 0.00 Indirect Bilirubin 0.9 Aspartate Amino 23 Transf (AST/SGOT) Alanine 68 Aminotransferase (ALT/SG PT) Alkaline Phosphatase 85 Total Protein 5.6 L Albumin 2.9 L Globulin 2.70 Albumin/Globulin Ratio 1.07 Imaging Imaging ECG demonstrates sinus rhythm at 90 bpm, QRS 109 ms, nonspecific ST abnormalities Medications Medications Current Medications Ondansetron HCl (Zofran Inj) 4 mg Q6H PRN IV NAUSEA AND/OR VOMITING Last administered on 01/16/19at 02:10; Admin Dose 4 MG; Start 01/15/19 at 02:00 Morphine Sulfate (morphine) 2 mg Q4H PRN IV SEVERE PAIN LEVEL 7-10 Last administered on 01/16/19at 02:07; Admin Dose 2 MG; Start 01/15/19 at 02:00 Acetaminophen (Tylenol Tab) 650 mg Q6H PRN PO MILD PAIN(1-3)OR ELEVATED TEMP; Start 01/15/19 at 02:00 Ceftriaxone Sodium 50 ml @ 100 mls/hr Q24H IVPB Last administered on 01/15/19at 09:41; Admin Dose 100 MLS/HR; Start 01/15/19 at 09:00 Metronidazole 100 ml @ 100 mls/hr Q8 IVPB Last administered on 01/16/19at 05:57; Admin Dose 100 MLS/HR; Start 01/15/19 at 09:00 Benazepril HCl (Lotensin) 10 mg DAILY PO Last administered on 01/15/19at 15:21; Admin Dose 10 MG; Start 01/15/19 at 13:30 Carvedilol (Coreg) 6.25 mg BID PO Last administered on 01/15/19 21:43; Admin Dose 6.25 MG; Start 01/15/19 at 13:30 Furosemide (Lasix) 20 mg DAILY IV Last administered on 01/15/19at 15:21; Admin Dose 20 MG; Start 01/15/19 at 13:30 Nitroglycerin (Nitroglycerin (Sl Tab) 0.4 Mg) 1 tab Q5M PRN SL ANGINA; Start 01/16/19 at 02:00 Aspirin (Aspirin) 81 mg DAILY PO Last administered on 01/16/19at 09:45; Admin Dose 81 MG; Start 01/16/19 at 09:00 Sawyer Sullivan DO January 16, 2019 12:02
[2019-01-16] MEDS: CEFTRIAXONE 1 GM/50 ML (PMX) 50 ML IVPB SCH (12:21)
[2019-01-16] MEDS: FUROSEMIDE 20 MG INJ IV SCH (12:31)
[2019-01-16] MEDS: BENAZEPRIL 10 MG TAB PO SCH (12:31)
[2019-01-16] MEDS ORDERED: FUROSEMIDE 20 MG INJ IV ONE (15:00)
--- NOTE | 2019-01-16 16:02 | RADRPT ---
Vent Rate: 99 bpm RR Interval: 608 msec AR Interval: 201 msec QRS Duration: 109 msec QT Interval: 373 msec QTC Interval: 478 msec P-R-T [place]: 69 - 128 - 59 degrees Sinus rhythm...normal P axis, V-rate 50- 99 Borderline prolonged AR interval...AR >197, V-rate 91-120 Right axis deviation...QRS axis (100,269) Low voltage, extremity leads...all extremity leads <0.5mV Electronically Signed By: Nabor David
--- NOTE | 2019-01-16 16:05 | RADRPT ---
Vent Rate: 78 bpm RR Interval: 768 msec VA Interval: 200 msec QRS Duration: 108 msec QT Interval: 400 msec QTC Interval: 456 msec P-R-T [place]: 68 - -69 - 72 degrees Sinus rhythm...normal P axis, V-rate 50- 99 Left atrial enlargement...P, P'>60mS, <-0.15mV V1 Left anterior fascicular block...axis(240,-40), init forces inf Consider anterior infarct...Q >30mS in V2-V5 Electronically Signed By: Nabor David
[2019-01-17] VITALS (10 sets, daily range): BP systolic 102–129; BP diastolic 58–74; PULSE 71–89; RESP 16–18
[2019-01-17] MEDS: morphine 2 MG INJ IV PRN (01:45)
[2019-01-17] MEDS: ONDANSETRON 4 MG INJ IV PRN (01:51)
[2019-01-17] MEDS: metroNIDAZOLE 500 MG/NS (PMX) 100 ML IVPB SCH ×2 (05:31→13:58)
[2019-01-17] MEDS ORDERED: LIDOCAINE 1% (MPF) 30 ML INJ ONE (09:32)
[2019-01-17] MEDS ORDERED: BUPIVACAINE 0.25%/EPI (SDV) 30 ML INJ ONE (09:32)
--- NOTE | 2019-01-17 10:05 | PN ---
Date/Time of Note Date/Time of Note DATE: 01/17/19 TIME: 10:00 Assessment/Plan Lines/Catheters IV Catheter Type (from [facility]): Peripheral IV [place] in Place (from [facility]): No Assessment/Plan Chief Complaint/Hosp Course 1. Cholelithiasis with concern for cholecystitis; HIDA scan negative however continues to have abdominal pain. Pain resolved. He is also upset that he didnt drink before midnight and he was woken up multiple times during the night. Patient wanted surgery yesterday but today is cancelling right before going to OR. -dc planning per medical team 2. Abdominal pain: 2/2? Symptomatic cholelithiasis versus other. Resolved 3. Minimally elevated ALT. Resolved 4. Leukocytosis: Normalized -As above 5. Significantly elevated BNP with concern for CHF exacerbation -Cardiac optimization -Fluid management 6. Hypertension: -Medical management -Highly encouraged weight loss 7. Severe obesity BMI: 37 -diet and exercise optimization -encourage weight loss 8. Urinary hesitancy: -Work-up per medical team Thank you, Subjective 24 Hr Interval Summary Reportedly had an episode of chest pain, however he states that it was reportedly abdominal pain instead of chest pain. Abdominal pain currently improved. No fevers, chills, sob, congested cough, cp, palpitations, inman, dizziness, nausea, vomiting, diarrhea, dysuria. WBC normalized Exam/Review of Systems Vital Signs Vitals Vital Signs Date Temp Pulse Resp B/P (MAP) Pulse Ox O2 O2 Flow FiO2 Time Delivery Rate 01/17/19 73 08:00 01/17/19 98.0 18 121/74 97 Room Air 07:19 (90) 01/16/19 2.0 01:50 Intake and Output 01/16/19 01/16/19 01/17/19 1515:00 23:00 07:00 IntakeIntake Total 150 ml 950 ml 400 ml OutputOutput Total 600 ml BalanceBalance 150 ml 950 ml -200 ml Exam Free Text/Dictation Constitutional: alert, oriented Psych: anxiety, unhappy at the moment bc of last night Head: normocephalic, atraumatic Eyes: nl conjunctiva, EOMI, nl lids, nl sclera ENMT: nl external ears & nose, nl lips & teeth, mucosa pink and moist Neck: supple, non-tender Respiratory: normal air movement; No congested cough, No labored breathing Cardiovascular: regular rate and rhythm; No edema Gastrointestinal: soft, NT to deep palpation, negative murphys Musculoskeletal: nl extremities to inspection, nl gait and stance; No joint tenderness Extremities: normal pulses Neurological: nl mental status, nl speech, nl strength Skin: No rash or lesions Lymph: nl lymph nodes Results Result Diagram: 01/17/19 0513 01/17/19 0513 TIMOTHY CHOE MD January 17, 2019 10:05
[2019-01-17] MEDS: BENAZEPRIL 10 MG TAB PO SCH (10:23)
[2019-01-17] MEDS: ASPIRIN 81 MG TAB PO SCH (10:24)
[2019-01-17] MEDS: FUROSEMIDE 20 MG INJ IV SCH (10:25)
[2019-01-17] MEDS: CEFTRIAXONE 1 GM/50 ML (PMX) 50 ML IVPB SCH (10:26)
--- NOTE | 2019-01-17 11:57 | CONS ---
Assessment/Plan Cardiology NYHA: II Heart Failure Type: Chronic Heart Failure Type: Systolic Assessment/Plan Hospital Course (Demo Recall) Preoperative cardiac risk stratification Gallbladder pathology Systolic congestive heart failure Severe cardia myopathy with left ventricular ejection fraction 25% Nuclear cardiac perfusion study September 2018 infarct, no ischemia Amphetamine use -In discussion with her his team general surgeon this morning, patient refusing surgery -Continue beta-olegario as heart rate and blood pressure permits -Continue AKASH inhibitor as renal function and blood pressure permits -If patient not n.p.o., would switch IV Lasix to p.o. -Aspirin and statin therapy as tolerated Consultation Date/Type/Reason Admit Date/Time Jan 14, 2019 at 23:58 Initial Consult Date Type of Consult Cardiology Requesting Provider: GINI JUNIOR MD Date/Time of Note DATE: 01/17/19 TIME: 11:54 24 HR Interval Summary Free Text/Dictation Denies current shortness of breath, complains of sharp chest pain with coughing. Denies currently. Denies shortness of breath with ambulation Exam/Review of Systems Vital Signs Vitals Vital Signs Date Temp Pulse Resp B/P (MAP) Pulse Ox O2 O2 Flow FiO2 Time Delivery Rate 01/17/19 98.2 81 16 116/72 98 Room Air 11:13 (87) 01/16/19 2.0 01:50 Intake and Output 01/16/19 01/16/19 01/17/19 1414:59 22:59 06:59 IntakeIntake Total 50 ml 1050 ml 400 ml OutputOutput Total 600 ml BalanceBalance 50 ml 1050 ml -200 ml Exam Constitutional: alert, oriented (No apparent distress) Head: normocephalic Respiratory: other (Coarse breath sounds bilaterally, no wheezing) Cardiovascular: regular rate and rhythm (S1-S2 heard) Gastrointestinal: soft, bowel sounds Extremities: other (With no significant edema) Labs Result Diagram: 01/17/19 0513 01/17/19 0513 Results 24hrs Laboratory Tests Test 01/17/19 05:13 White Blood Count 9.4 # Red Blood Count 5.40 Hemoglobin 14.5 Hematocrit 45.8 Mean Corpuscular Volume 84.8 Mean Corpuscular Hemoglobin 26.9 L Mean Corpuscular Hemoglobin Concent 31.7 L Red Cell Distribution Width 16.6 H Platelet Count 257 Mean Platelet Volume 10.2 Immature Granulocytes % 0.300 Neutrophils % 65.4 Lymphocytes % 18.5 Monocytes % 9.8 Eosinophils % 5.4 Basophils % 0.6 Nucleated Red Blood Cells % 0.0 Immature Granulocytes # 0.030 Neutrophils # 6.1 Lymphocytes # 1.7 Monocytes # 0.9 Eosinophils # 0.5 Basophils # 0.1 Nucleated Red Blood Cells # 0.0 Sodium Level 141 Potassium Level 4.3 Chloride Level 106 Carbon Dioxide Level 28 Anion Gap 7 Blood Urea Nitrogen 20 Creatinine 1.07 Est Glomerular Filtrat Rate mL/min > 60 Glucose Level 114 Calcium Level 9.1 Magnesium Level 2.2 Medications Medications Current Medications Ondansetron HCl (Zofran Inj) 4 mg Q6H PRN IV NAUSEA AND/OR VOMITING Last administered on 01/17/19 01:51; Admin Dose 4 MG; Start 01/15/19 at 02:00 Morphine Sulfate (morphine) 2 mg Q4H PRN IV SEVERE PAIN LEVEL 7-10 Last administered on 01/17/19 01:45; Admin Dose 2 MG; Start 01/15/19 at 02:00 Acetaminophen (Tylenol Tab) 650 mg Q6H PRN PO MILD PAIN(1-3)OR ELEVATED TEMP Last administered on 01/16/19 21:38; Admin Dose 650 MG; Start 01/15/19 at 02:00 Ceftriaxone Sodium 50 ml @ 100 mls/hr Q24H IVPB Last administered on 01/17/19 10:26; Admin Dose 100 MLS/HR; Start 01/15/19 at 09:00 Metronidazole 100 ml @ 100 mls/hr Q8 IVPB Last administered on 01/17/19 05:31; Admin Dose 100 MLS/HR; Start 01/15/19 at 09:00 Benazepril HCl (Lotensin) 10 mg DAILY PO Last administered on 01/17/19 10:23; Admin Dose 10 MG; Start 01/15/19 at 13:30 Carvedilol (Coreg) 6.25 mg BID PO Last administered on 01/17/19 10:24; Admin Dose 6.25 MG; Start 01/15/19 at 13:30 Furosemide (Lasix) 20 mg DAILY IV Last administered on 01/17/19 10:25; Admin Dose 20 MG; Start 01/15/19 at 13:30 Nitroglycerin (Nitroglycerin (Sl Tab) 0.4 Mg) 1 tab Q5M PRN SL ANGINA; Start 01/16/19 at 02:00 Aspirin (Aspirin) 81 mg DAILY PO Last administered on 01/17/19at 10:24; Admin Dose 81 MG; Start 01/16/19 at 09:00 Sawyer Sullivan DO January 17, 2019 11:57
--- NOTE | 2019-01-17 16:50 | QN ---
Documentation Comment pt refused surgery due to cardiac risks abdominal pain resolved spoke to Dr Schaffer> ok to GINI Day MD January 17, 2019 16:50
--- NOTE | 2019-01-17 16:52 | PDOCDIS ---
Discharge Instructions DIAGNOSIS Discharge Diagnosis Symtomatic cholelithasis Severe CM CONDITION [id number] Patient Condition: [id number] Fair HOME CARE INSTRUCTIONS: [id number] Diet Instructions: [id number] Reduced Calorie ACTIVITY: [id number] Activity Restrictions: [id number] Slowly Increase Activity Rest between Activity Avoid heavy lifting FOLLOW UP/APPOINTMENTS Follow-up Plan F/U PCP in [address] Ramirez in 2-3 weeks fu Cards in 2-3 weeks GINI JUNIOR MD January 17, 2019 16:52
[2019-01-17] MEDS ORDERED: ASPI-817 PO (16:54)
[2019-01-17] MEDS ORDERED: CARV6.2579 PO (16:54)
[2019-01-17] MEDS ORDERED: BENA10TA4 PO (16:54)
[2019-01-17] MEDS ORDERED: CIPR-193 PO (16:54)
[2019-01-17] MEDS ORDERED: ATOR20TA65 PO (16:54)
[2019-01-17] MEDS ORDERED: METR500T PO (16:54)
[2019-01-17] MEDS ORDERED: FURO40TA4 PO (16:54)
[2019-01-17] MEDS ORDERED: ATORVASTATIN 20 MG TAB PO SCH (21:00)
--- NOTE | 2019-01-17 21:48 | DS ---
DATE OF ADMISSION: 01/14/2019 DATE OF DISCHARGE: 01/17/2019 HISTORY OF PRESENT ILLNESS AND HOSPITAL COURSE: This is a 38-year-old male with a past medical histo ry of hypertension, hyperlipidemia, drug abuse, history of amphetamine use, cocaine use, history of c ongestive heart failure diagnosed in 2005 and EF of 20 to 25%, presented to [facility] secondary to evaluation of abdominal pain. The patient stated that he had a history of gallstone. He develop ed acute abdominal pain, worse over the past 3 weeks, having some episodes of nausea and vomiting. T he patient also told me that he was having some shortness of breath for the past few days. He has a history of CHF. He has been taking Lasix at home, not sure if he was compliant with all other medica tions. Patient was transferred to [facility] due to insurance reasons as the [facility] had abdominal ultrasound there that showed multiple shadowing gallstones, mild gallbladder wall th ickening, no pericholecystic fluid. Patient was initially kept n.p.o., started on IV fluids and IV a ntibiotics. Patient was seen by Dr. Ramirez for surgical consultation. The patient also had a HIDA scan which was negative. The patient was seen by Dr. Sullivan for cardiology clearance. Has an echo d one that showed EF of 25%. The patient had a nuclear study that was done in September 2008 with no isc hemia. Per cardiology, the patient had a decent exercise capacity, able to climb one flight of stair s and stop because of fatigue, but no chest pain. Oxygen saturation was 97%. The patient without sh ortness of breath. EKGs were negative and serial troponins were negative. Per cardiology, there was an intermediate risk for any untoward cardiac events. The patient appeared well compensated. Erwin madison, however, was going for surgery; however, on the OR table, the patient refused due to risk of card iac events. Patient was started on diet, in which the patient tolerated without any pain. Patient d enied any nausea, vomiting and currently stable to be discharged home. FINAL DISCHARGE DIAGNOSES: 1. Symptomatic gallstones. HIDA negative; however, the patient refused cholecystectomy due to risk of cardiac events. 2. Abdominal pain secondary to symptomatic cholelithiasis. 3. Minimally elevated ALT, resolved. 4. Leukocytosis, resolved. 5. Systolic CHF. 6. Severe cardiomyopathy with EF of 25%. 7. Amphetamine use. DISCHARGE CONDITION: Stable. DISCHARGE DIET: Two-gram sodium, low fat. DISCHARGE MEDICATIONS: 1. Aspirin 81. 2. Coreg 6.25 b.i.d., hold if blood pressure is less than 100. 3. Benazepril 10 mg p.o. daily. 4. Carbamazepine 200. 5. Lamotrigine. 6. Quetiapine. 7. Zolpidem ____ 8. Lasix 40. 9. Cipro 250 b.i.d. for 5 days. 10. Flagyl 500 mg p.o. q.8 for 5 days. 11. Atorvastatin 20 mg p.o. at bedtime. The patient was instructed to return to the ER for severe a bdominal pain, nausea, vomiting, fevers and chills. Dictated By: GINI GALAN Conf#: [id number] DID#: [id number]
[2019-01-18] MEDS ORDERED: FUROSEMIDE 40 MG TAB PO SCH (06:00)
== END 2019-01-17 19:15 | disposition home or self-care (01) | DRG 444 ==
LOC: MS1 23:58 → 6WM 01-16 03:08
PROVIDERS: ADMIT Internal Medicine; ATTEND Internal Medicine
DX: K80.10 Calculus of gallbladder with chronic cholecystitis without obstruction (principal); I50.23 Acute on chronic systolic (congestive) heart failure; I42.9 Cardiomyopathy, unspecified; I50.20 Unspecified systolic (congestive) heart failure; I11.0 Hypertensive heart disease with heart failure; F14.10 Cocaine abuse, uncomplicated; F19.10 Other psychoactive substance abuse, uncomplicated; E78.5 Hyperlipidemia, unspecified; F31.9 Bipolar disorder, unspecified; R39.11 Hesitancy of micturition; E66.9 Obesity, unspecified; Z71.3 Dietary counseling and surveillance; Z68.37 Body mass index [BMI] 37.0-37.9, adult; Z79.82 Long term (current) use of aspirin
CPT/HCPCS: 71045; 78226; 80048; 80053; 83735; 84100; 84484; 85025; 93005; 93306; A9537; J0696; J1940; J2270; J2405; J3475; J7030

== ENCOUNTER 2019-01-24 19:50 | Inpatient (IN) | payer OTHER ==
[~2019-01-24] VITALS: Ht 175.3 cm; Wt 111.8 kg
[~2019-01-24 19:50] MED LIST changes: +ATOR20TA65 PO; +CIPR-193 PO; -FURO20TA3 PO; +FURO40TA4 PO; +METR500T PO; -POTA20TA96 PO
[2019-01-25] VITALS (10 sets, daily range): BP systolic 104–118; BP diastolic 65–84; PULSE 74–115; RESP 20–22; Ht 175.3 cm; Wt 111.8 kg
[2019-01-25] MEDS ORDERED: HEPARIN 25000 UNITS/250 ML 250 ML ONE (04:18)
[2019-01-25] MEDS ORDERED: ZOLPIDEM 5 MG TAB PO PRN (06:00)
[2019-01-25] MEDS: metroNIDAZOLE 500 MG TAB PO SCH ×4 (06:00→21:31)
[2019-01-25] MEDS ORDERED: ACETAMINOPHEN 325 MG TAB PO PRN (06:00)
[2019-01-25] MEDS ORDERED: HEPARIN 1000 UNITS/ML 10 ML INJ IV PRN (06:00)
[2019-01-25] MEDS: FUROSEMIDE 40 MG TAB PO SCH (06:50)
[2019-01-25] MEDS: HEPARIN 25000 UNITS/250 ML 250 ML IV SCH ×4 (06:56→21:30)
[2019-01-25] MEDS: CARBAMAZEPINE 200 MG TAB PO SCH ×2 (09:00→21:00)
[2019-01-25] MEDS: QUETIAPINE 100 MG TAB PO SCH (09:00)
[2019-01-25] MEDS: LAMOTRIGINE 25 MG TAB PO SCH (09:00)
[2019-01-25] MEDS: BENAZEPRIL 10 MG TAB PO SCH (10:14)
[2019-01-25] MEDS ORDERED: ALBUTEROL/IPRATROPIUM (NEB) 3 ML AMP HHN PRN (11:30)
--- NOTE | 2019-01-25 11:41 | HP ---
Date/Time of Note Date/Time of Note DATE: 01/25/19 TIME: 11:41 Assessment/Plan VTE Prophylaxis Risk score (from [facility])>0 risk: 4 SCD applied (from [facility]): No SCD contraindicated: other Pharmacological prophylaxis: heparin Lines/Catheters IV Catheter Type (from [facility]): Peripheral IV Assessment/Plan Hospital Course 1. Shortness of breath likely secondary to cardiac decompensation. CHF exa cerbation with BNP 4425 due to ventriculi apical thrombi. 2. SIRS, WBC in [facility] is 12, now is normal 3. Nonischemic cardiomyopathy with an ejection fraction of 20% to 25%. Last Echo in [facility] reduced EF 10--20% and bilateral ventriculi apical thrombi. 4. SHENG, creatinine 1.[address] [facility] hospital. More likely related to cardiac decompensation. 5. NSTEMI with elevated troponin. Pt reported chest pain 01/23/2019, none today 6. On CT abdomen: renal infarcts, more pronounced in right kidney 7. Hyperglycemia? 8. Obesity 9. Pulmonary edema with small pericardial and right pleural effusion 10. Cholelithiasis without evidence of cholecystitis 11. History of bipolar disorder. 12. History of hypertension, now normotensive on meds. 13. Patient is positive for methamphetamine and cannabinoids in the [facility]. History of drug abuse. Assessment/Plan -telemetry -With restrictions 1.5Liters -Continue with home meds -CT abdomen reviewed : gallstones in gallbladder, renal infarct in right kidney, cardiac ventrical thrombi -DVT treatment Heparin drip -GI proph Protonix - clear liquids, -c/w furosemide -need cardiac optimization. -Hg A1 C -troponin serial -Cardiology consultation will be requested from Dr. Membreno . Result Diagram: 01/25/19 0826 01/25/19 0826 Results 24hrs Laboratory Tests Test 01/25/19 08:26 White Blood Count 9.2 Red Blood Count 5.35 Hemoglobin 14.6 Hematocrit 45.1 Mean Corpuscular Volume 84.3 Mean Corpuscular Hemoglobin 27.3 L Mean Corpuscular Hemoglobin Concent 32.4 Red Cell Distribution Width 17.2 H Platelet Count 257 Mean Platelet Volume 10.6 H Immature Granulocytes % 0.500 H Neutrophils % 63.8 Lymphocytes % 23.2 Monocytes % 8.2 Eosinophils % 2.9 Basophils % 1.4 Nucleated Red Blood Cells % 0.0 Immature Granulocytes # 0.050 H Neutrophils # 5.9 Lymphocytes # 2.1 Monocytes # 0.8 Eosinophils # 0.3 Basophils # 0.1 Nucleated Red Blood Cells # 0.0 Prothrombin Time 15.3 H Prothrombin Time Ratio 1.2 INR International Normalized Ratio 1.20 Activated Partial Thromboplast Time 71.7 *H Sodium Level 139 Potassium Level 4.0 Chloride Level 105 Carbon Dioxide Level 27 Anion Gap 7 Blood Urea Nitrogen 17 Creatinine 0.97 Est Glomerular Filtrat Rate mL/min > 60 Glucose Level 169 Calcium Level 8.6 Total Bilirubin 0.7 Direct Bilirubin 0.00 Indirect Bilirubin 0.7 Aspartate Amino Transf (AST/SGOT) 13 L Alanine Aminotransferase (ALT/SGPT) 28 Alkaline Phosphatase 72 Troponin I 0.026 Total Protein 5.2 L Albumin 2.7 L Globulin 2.50 Albumin/Globulin Ratio 1.08 HPI/ROS Admit Date/Time Admit Date/Time January 25, 2019 at 04:06 Hx of Present Illness This is a 38-year-old male with a past medical history of hypertension, hyperlipidemia, drug abuse, obesity, SOB, history of amphetamine and cocaine use, history of congestive heart failure diagnosed in 2016, EF of 20% to 25%, presented to [facility] on 01/23/2019 secondary to evaluation of SOB, abdominal and chest pain. The patient stated that he has a history of gallstones. He went to [place] for evaluation of his abdominal pain. Per insurance reason he was transferred to [facility] just recently January 14, 2019. Patient was discharged home with the oral Flagyl and Cipro, no surgery was done for him. He reported that he was having some episodes of nausea and vomiting at home. According to the patient, he has shortness of breath for past few days more than usual, maribel. at the night time. He has a history of CHF. He reported that he is taking all his medications religiously. He has been taking his Lasix at home. At [facility]: CBC: 12,2 , other are negative. BMP is normal, except glucose is elevated to 180 and creatinine 1.24. UA is negative. Urine for drug of abuse positive for methamphetamine and cannabinoids. The patient had an abdominal ultrasound that showed gallbladder contracted, multiple shadowing gallstones. Patient has a chest x-ray that shows all structure within normal limits: lungs are clear, no pleural effusion, pulmonary vasculature within normal limits and large cardiac silhouette from 01/23/2019. CT abdomen and pelvis showed:cardiac ventricular thrombi, renal infa rcts, more pronounced in right kidney, pulmonary edema with small pericardial and right pleural effusion, simple left renal cyst, gallstones, and mild degenerative changes in spine. The patient was given IV antibiotics and was transferred to [facility] due to insurance reasons. PAST MEDICAL HISTORY: 1. History of congestive heart failure, nonischemic with EF of 20% to 25%. 2. Hypertension. 3. Drug abuse. 4. History of bronchitis. Medications at home: Aspirin 81 mg daily Atorvastatin unknown dose every day Benazepril 10 mg daily Cipro oral every 12 hours Coreg 6.25 oral twice daily Flagyl 500 mg oral 3 times daily ROS Respiratory: cough, shortness of breath Gastrointestinal: pain (right UQ abdomen), nausea Genitourinary: no complaints Musculoskeletal: back pain PMH/Family/Social Past Medical History Medical History: congestive heart failure, other (obesity) Medications Current Medications Atorvastatin Calcium (Lipitor) 20 mg HS PO ; Start 01/25/19 at 21:00 Benazepril HCl (Lotensin) 10 mg DAILY PO Last administered on 01/25/19at 10:14; Admin Dose 10 MG; Start 01/25/19 at 09:00 Carvedilol (Coreg) 6.25 mg BID PO Last administered on 01/25/19at 10:14; Admin Dose 6.25 MG; Start 01/25/19 at 09:00 Furosemide (Lasix) 40 mg DAILY@0600 PO Last administered on 01/25/19at 06:50; Admin Dose 40 MG; Start 01/25/19 at 06:00 Metronidazole (Flagyl) 500 mg Q8 PO ; Start 01/25/19 at 06:00 Heparin Sodium (Porcine) 250 ml @ 16.5 mls/hr PER PROTOCOL IV Last administered on 01/25/19at 10:17; Admin Dose 16.5 MLS/HR; Start 01/25/19 at 06:00 Carbamazepine (Tegretol) 200 mg BID PO ; Start 01/25/19 at 09:00 Lamotrigine (Lamictal) 25 mg DAILY PO ; Start 01/25/19 at 09:00 Quetiapine Fumarate (Seroquel) 100 mg DAILY PO ; Start 01/25/19 at 09:00 Zolpidem Tartrate (Ambien) 5 mg HS PRN PO INSOMNIA; Start 01/25/19 at 06:00 Heparin Sodium (Porcine) (Heparin (1000 Units/ml)) PRN PRN IV PENDING LAB VALUE; Start 01/25/19 at 06:00 Acetaminophen (Tylenol Tab) 650 mg Q4H PRN PO MILD PAIN(1-3)OR ELEVATED TEMP; Start 01/25/19 at 06:00 Albuterol/ Ipratropium (Duoneb) 3 ml Q6H RESP THERAPY PRN HHN SHORTNESS OF BREATH Last administered on 01/25/19at 11:28; Admin Dose 3 ML; Start 01/25/19 at 11:30 Coded Allergies: No Known Allergy (Unverified , 01/11/19) Past Surgical History Past Surgical Hx: no surgical history Family History Significant Family History: no pertinent family hx Social History Alcohol Use: none Smoking Status: Former smoker Drug Use: cocaine, other (meth) Exam/Review of Systems Vital Signs Vitals Vital Signs Date Temp Pulse Resp B/P (MAP) Pulse Ox O2 O2 Flow FiO2 Time Delivery Rate 01/25/19 97.9 99 20 116/71 100 11:39 (86) 01/25/19 Nasal 4.0 36 11:30 Cannula Exam Exam pale, sweating Constitutional: alert, oriented Head: normocephalic Eyes: nl conjunctiva ENMT: nl external ears & nose Neck: supple, non-tender Respiratory: clear to auscultation Cardiovascular: regular rate and rhythm Gastrointestinal: soft Musculoskeletal: nl extremities to inspection MO URIOSTEGUI January 25, 2019 11:41
--- NOTE | 2019-01-25 16:19 | CONS ---
Assessment/Plan Assessment/Plan Hospital Course (Demo Recall) Congestive heart failure: Chronic secondary systolic heart failure Severe cardiomyopathy: Most likely nonischemic Reported LV thrombus Hypertension History of drug use Recommendations Anticoagulation to be continued. Patient is current on heparin drip. Ideally would be best to keep him on heparin and Coumadin until INR is therapeutic. However there are logistical issues and concern about this patient with a history of noncompliant to be on Coumadin at home. He states that his cardiol ogist is . But when I ask him when was the last time he saw him he states to me that he has not seen him for 2 years. Continue with AKASH inhibitor and Coreg Lasix will be continued daily Digoxin will be added to his regimen Thank you for his referral. We will continue to follow along with you until Dr. Membreno returns on Sunday YESENIA MURRY MD [facility] Consultation Date/Type/Reason Admit Date/Time January 25, 2019 at 04:06 Date of Consultation: January 25, 2019 Type of Consult Cardiology Reason for Consultation LV thrombus chf Requesting Provider: MO URIOSTEGUI Date/Time of Note DATE: 01/25/19 TIME: 16:13 Hx of Present Illness Interventional cardiology consultation note Chief complaint: Shortness of breath Reason for consult: LV thrombus History of present illness: Thank you for this referral. History was from the patient review of the old chart discussion with physician staff This is a 38-year-old gentleman with history of severe cardiomyopathy amphetamine use who was transferred from [facility] because of LV thrombus and due to insurance reasons. Patient apparently went to the hospital because of shortness of breath and some chest discomfort which has resolved now. Work-up has shown echocardiogram which per report has showed LV thrombus. Patient has been placed on heparin drip and be transferred to facility. Denies any active bleeding to me Allergies: No known drug allergies Medications were reviewed as per medical reconciliation sheet Family history: Grandparent with coronary artery disease Social history: Positive for amphetamine use. He reported his last use was a month ago but his urine tox was reportedly positive Denies heavy alcohol use Past medical history: History of severe cardiomyopathy. Will come included a stress test done in September of this year which showed no reversible ischemia and some fixed defect ejection fraction on the Lexiscan was 16% Hypertension History of drug/amphetamine use History of cholecystitis Review of system: Patient denies all others except for above-mentioned Past Medical History Home Meds Active Scripts Metronidazole* (Flagyl*) 500 Mg Tablet, 500 MG PO Q8 for 5 Days, TAB Prov:GINI JUNIOR MD 01/17/19 Furosemide* (Furosemide*) 40 Mg Tablet, 40 MG PO DAILY@0600 for 30 Days, TAB Prov:GINI JUNIOR MD 01/17/19 Atorvastatin Calcium (Atorvastatin Calcium) 20 Mg Tablet, 20 MG PO HS for 60 Days, TAB Prov:GINI JUNIOR MD 01/17/19 Carvedilol* (Carvedilol*) 6.25 Mg Tablet, 6.25 MG PO BID for 60 Days, #60 TAB Prov:GINI JUNIOR MD 01/17/19 Benazepril Hcl* (Benazepril Hcl*) 10 Mg Tablet, 10 MG PO DAILY for 30 Days, #30 TAB Prov:GINI JUNIOR MD 01/17/19 Discontinued Reported Medications Zolpidem Tartrate* (Zolpidem Tartrate*) 5 Mg Tablet, 5 MG PO QHS PRN for INSOMNIA, #30 TAB 1 OR 2 TIMES A DAY 01/08/19 Discontinued Scripts Ciprofloxacin Hcl* (Ciprofloxacin Hcl*) 250 Mg Tablet, 250 MG PO BID for 5 Days, #14 TAB Prov:GINI JUNIOR MD 01/17/19 Aspirin* (Aspirin* EC) 81 Mg Tablet.dr, 81 MG PO DAILY for 30 Days, TAB Prov:GINI JUNIOR MD 01/17/19 Quetiapine Fumarate* (Seroquel*) 100 Mg Tablet, 100 MG PO as directed, #20 TAB Prov:RIKA WILEY 01/08/19 Lamotrigine* (Lamotrigine* ER) 25 Mg Tab.er.24, 25 MG PO as directed, #250 TAB Prov:RIKA WILEY 01/08/19 Carbamazepine* (Carbamazepine* XR) 200 Mg Tab.er.12h, 200 MG PO as directed, #180 TAB.SA Prov:RIKA WILEY 01/08/19 Medications Current Medications Atorvastatin Calcium (Lipitor) 20 mg HS PO ; Start 01/25/19 at 21:00 Benazepril HCl (Lotensin) 10 mg DAILY PO Last administered on 01/25/19at 10:14; Admin Dose 10 MG; Start 01/25/19 at 09:00 Carvedilol (Coreg) 6.25 mg BID PO Last administered on 01/25/19at 10:14; Admin Dose 6.25 MG; Start 01/25/19 at 09:00 Furosemide (Lasix) 40 mg DAILY@0600 PO Last administered on 01/25/19at 06:50; Admin Dose 40 MG; Start 01/25/19 at 06:00 Metronidazole (Flagyl) 500 mg Q8 PO Last administered on 01/25/19at 14:07; Admin Dose 500 MG; Start 01/25/19 at 06:00 Heparin Sodium (Porcine) 250 ml @ 16.5 mls/hr PER PROTOCOL IV Last administered on 01/25/19at 10:17; Admin Dose 16.5 MLS/HR; Start 01/25/19 at 06:00 Carbamazepine (Tegretol) 200 mg BID PO ; Start 01/25/19 at 09:00 Lamotrigine (Lamictal) 25 mg DAILY PO ; Start 01/25/19 at 09:00 Quetiapine Fumarate (Seroquel) 100 mg DAILY PO ; Start 01/25/19 at 09:00 Zolpidem Tartrate (Ambien) 5 mg HS PRN PO INSOMNIA; Start 01/25/19 at 06:00 Heparin Sodium (Porcine) (Heparin (1000 Units/ml)) PRN PRN IV PENDING LAB VALUE; Start 01/25/19 at 06:00 Acetaminophen (Tylenol Tab) 650 mg Q4H PRN PO MILD PAIN(1-3)OR ELEVATED TEMP; Start 01/25/19 at 06:00 Albuterol/ Ipratropium (Duoneb) 3 ml Q6H RESP THERAPY PRN HHN SHORTNESS OF BREATH Last administered on 01/25/19at 11:28; Admin Dose 3 ML; Start 01/25/19 at 11:30 Miscellaneous Information Patients own medicat... BID@10,16 XX ; Start 01/25/19 at 16:00 Piperacillin Sod/ Tazobactam Sod 100 ml @ 200 mls/hr Q8 IVPB ; Start 01/25/19 at 22:00 Aspirin (Aspirin) 81 mg DAILY PO ; Start 01/26/19 at 09:00 Allergies: Coded Allergies: No Known Allergy (Unverified , 4/27/19) Past Surgical History Past Surgical Hx: no surgical history Social History Alcohol Use: none Smoking Status: Former smoker Drug Use: cocaine, other (meth) Exam/Review of Systems Vital Signs Vitals Vital Signs Date Temp Pulse Resp B/P (MAP) Pulse Ox O2 O2 Flow FiO2 Time Delivery Rate 01/25/19 98.2 91 20 106/71 100 Nasal 4.0 14:58 (83) Cannula 01/25/19 36 11:30 Exam Exam General: no acute distress HEENT: NC/AT. pupils are equal. round. NECK: no stridor. CV: RRR. systolic murmur; no gallop or rubs. PULM: no wheezing or rhonchi. GI: SOFT, NT, ND, no rebound or guarding Extremity: trace B/L LE edema. no clubbing. neuro: awake and alert, OX3. Psych: calm and pleasant rectal: deferred Labs Result Diagram: 01/25/19 0826 01/25/19 0826 Results 24hrs Laboratory Tests Test 01/25/19 08:26 White Blood Count 9.2 Red Blood Count 5.35 Hemoglobin 14.6 Hematocrit 45.1 Mean Corpuscular Volume 84.3 Mean Corpuscular Hemoglobin 27.3 L Mean Corpuscular Hemoglobin Concent 32.4 Red Cell Distribution Width 17.2 H Platelet Count 257 Mean Platelet Volume 10.6 H Immature Granulocytes % 0.500 H Neutrophils % 63.8 Lymphocytes % 23.2 Monocytes % 8.2 Eosinophils % 2.9 Basophils % 1.4 Nucleated Red Blood Cells % 0.0 Immature Granulocytes # 0.050 H Neutrophils # 5.9 Lymphocytes # 2.1 Monocytes # 0.8 Eosinophils # 0.3 Basophils # 0.1 Nucleated Red Blood Cells # 0.0 Prothrombin Time 15.3 H Prothrombin Time Ratio 1.2 INR International Normalized Ratio 1.20 Activated Partial Thromboplast Time 71.7 *H Sodium Level 139 Potassium Level 4.0 Chloride Level 105 Carbon Dioxide Level 27 Anion Gap 7 Blood Urea Nitrogen 17 Creatinine 0.97 Est Glomerular Filtrat Rate mL/min > 60 Glucose Level 169 Calcium Level 8.6 Total Bilirubin 0.7 Direct Bilirubin 0.00 Indirect Bilirubin 0.7 Aspartate Amino Transf (AST/SGOT) 13 L Alanine Aminotransferase (ALT/SGPT) 28 Alkaline Phosphatase 72 Troponin I 0.026 Total Protein 5.2 L Albumin 2.7 L Globulin 2.50 Albumin/Globulin Ratio 1.08 Medications Medications Current Medications Atorvastatin Calcium (Lipitor) 20 mg HS PO ; Start 01/25/19 at 21:00 Benazepril HCl (Lotensin) 10 mg DAILY PO Last administered on 01/25/19at 10:14; Admin Dose 10 MG; Start 01/25/19 at 09:00 Carvedilol (Coreg) 6.25 mg BID PO Last administered on 01/25/19at 10:14; Admin Dose 6.25 MG; Start 01/25/19 at 09:00 Furosemide (Lasix) 40 mg DAILY@0600 PO Last administered on 01/25/19at 06:50; Admin Dose 40 MG; Start 01/25/19 at 06:00 Metronidazole (Flagyl) 500 mg Q8 PO Last administered on 01/25/19at 14:07; Admin Dose 500 MG; Start 01/25/19 at 06:00 Heparin Sodium (Porcine) 250 ml @ 16.5 mls/hr PER PROTOCOL IV Last administered on 01/25/19at 10:17; Admin Dose 16.5 MLS/HR; Start 01/25/19 at 06:00 Carbamazepine (Tegretol) 200 mg BID PO ; Start 01/25/19 at 09:00 Lamotrigine (Lamictal) 25 mg DAILY PO ; Start 01/25/19 at 09:00 Quetiapine Fumarate (Seroquel) 100 mg DAILY PO ; Start 01/25/19 at 09:00 Zolpidem Tartrate (Ambien) 5 mg HS PRN PO INSOMNIA; Start 01/25/19 at 06:00 Heparin Sodium (Porcine) (Heparin (1000 Units/ml)) PRN PRN IV PENDING LAB VALUE; Start 01/25/19 at 06:00 Acetaminophen (Tylenol Tab) 650 mg Q4H PRN PO MILD PAIN(1-3)OR ELEVATED TEMP; Start 01/25/19 at 06:00 Albuterol/ Ipratropium (Duoneb) 3 ml Q6H RESP THERAPY PRN HHN SHORTNESS OF BREATH Last administered on 01/25/19at 11:28; Admin Dose 3 ML; Start 01/25/19 at 11:30 Miscellaneous Information Patients own medicat... BID@10,16 XX ; Start 01/25/19 at 16:00 Piperacillin Sod/ Tazobactam Sod 100 ml @ 200 mls/hr Q8 IVPB ; Start 01/25/19 at 22:00 Aspirin (Aspirin) 81 mg DAILY PO ; Start 01/26/19 at 09:00 YESENIA MURRY MD January 25, 2019 16:19
[2019-01-25] MEDS ORDERED: MAGNESIUM OXIDE 400 MG TAB PO ONE (17:00)
[2019-01-25] MEDS: DIGOXIN 0.125 MG TAB PO SCH (17:30)
[2019-01-25] MEDS: ATORVASTATIN 20 MG TAB PO SCH (21:32)
[2019-01-25] MEDS: PIPER-TAZO 3.375 GM IV (PMX) 100 ML IVPB SCH (21:36)
[2019-01-26] VITALS (13 sets, daily range): BP systolic 90–121; BP diastolic 49–79; PULSE 44–107; RESP 18–19
[2019-01-26] MEDS: metroNIDAZOLE 500 MG TAB PO SCH ×3 (05:19→21:07)
[2019-01-26] MEDS: PIPER-TAZO 3.375 GM IV (PMX) 100 ML IVPB SCH ×3 (05:19→21:08)
[2019-01-26] MEDS: FUROSEMIDE 40 MG TAB PO SCH (05:19)
[2019-01-26] MEDS: HEPARIN 25000 UNITS/250 ML 250 ML IV SCH ×3 (08:01→19:15)
[2019-01-26] MEDS: CARBAMAZEPINE 200 MG TAB PO SCH ×2 (09:00→21:00)
[2019-01-26] MEDS: QUETIAPINE 100 MG TAB PO SCH (09:00)
[2019-01-26] MEDS: LAMOTRIGINE 25 MG TAB PO SCH (09:00)
[2019-01-26] MEDS: POTASSIUM CHLORIDE (SR) 10 MEQ TAB PO SCH (09:00)
--- NOTE | 2019-01-26 09:54 | PN ---
Date/Time of Note Date/Time of Note DATE: 01/26/19 TIME: 09:53 Assessment/Plan VTE Prophylaxis Risk [place] [facility] [place] risk: 4 SCD applied (from [facility] [place] No SCD contraindicated: other Pharmacological prophylaxis: heparin Lines/Catheters IV Catheter Type (from [facility]): Peripheral IV Urinary Cath still in place: No Assessment/Plan Hospital Course 1. Shortness of breath likely secondary to cardiac decompensation. CHF exacerbation with BNP 4425 due to ventriculi apical thrombi. 2. SIRS, WBC in [facility] is 12, now is normal 3. Nonischemic cardiomyopathy with an ejection fraction of 20% to 25%. Last Echo in [facility] reduced EF 10--20% and bilateral ventriculi apical thrombi. 4. SHENG, creatinine 1.32 in [facility] hospital. More likely related to cardiac decompensation. 5. NSTEMI with elevated troponin. Pt reported chest pain 01/23/2019, none today 6. On CT abdomen: renal infarcts, more pronounced in right kidney 7. DM type II, new 8. Obesity 9. Pulmonary edema with small pericardial and right pleural effusion 10. Cholelithiasis without evidence of cholecystitis 11. History of bipolar disorder. 12. History of hypertension, now normotensive on meds. 13. Patient is positive for methamphetamine and cannabinoids in the [facility]. History of drug abuse. Withdrawal. Assessment/Plan -telemetry -fluid restrictions 1.5 Liters /day -DVT treatment c/w Heparin drip -psych. eval. 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 -Hg A1 C 7.8 -hypoglycemic protocol -diabetic teaching -troponin serial -Cardiology consultation Dr. Sullivan, seen Result Diagram: 01/26/1952301/26/19523 Results 24hrs Laboratory Tests Test 01/25/19 15:59 01/25/19 23:20 01/26/19 05:24 01/26/19 05:27 Activated 70.0 H 59.8 H Partial Thromboplast Time Urine Opiates Screen Negative Urine Barbiturates Negative Urine Amphetamines Negative Screen Urine Negative Benzodiazepines Screen Urine Cocaine Screen Negative Urine Cannabinoids Positive White Blood Count 9.1 Red Blood Count 5.10 Hemoglobin 14.0 Hematocrit 43.1 Mean Corpuscular 84.5 Volume Mean Corpuscular 27.5 L Hemoglobin Mean Corpuscular 32.5 Hemoglobin Concent Red Cell 17.1 H Distribution Width Platelet Count 256 Mean Platelet Volume 11.0 H Immature 0.400 Granulocytes % Neutrophils % 61.4 Lymphocytes % 24.5 Monocytes % 8.5 Eosinophils % 3.9 Basophils % 1.3 Nucleated Red Blood 0.0 Cells % Immature 0.040 H Granulocytes # Neutrophils # 5.6 Lymphocytes # 2.2 Monocytes # 0.8 Eosinophils # 0.4 Basophils # 0.1 Nucleated Red Blood 0.0 Cells # Sodium Level 139 Potassium Level 4.1 Chloride Level 105 Carbon Dioxide Level 28 Anion Gap 6 Blood Urea Nitrogen 23 H Creatinine 1.04 Est Glomerular > 60 Filtrat Rate mL/min Glucose Level 107 # Hemoglobin A1c 7.3 H Calcium Level 8.5 Magnesium Level 2.0 Total Bilirubin 0.5 Direct Bilirubin 0.00 Indirect Bilirubin 0.5 Aspartate Amino 20 # Transf (AST/SGOT) Alanine 26 Aminotransferase (AL T/SGPT) Alkaline Phosphatase 69 B-Type Natriuretic 4830 H Peptide Total Protein 5.6 L Albumin 2.8 L Globulin 2.80 Albumin/Globulin 1.00 Ratio Thyroid Stimulating 0.961 Hormone (TSH) Free Thyroxine 1.31 Prothrombin Time 15.3 H Prothrombin Time 1.2 Ratio INR International 1.20 Normalized Ratio Subjective 24 Hr Interval Summary Free Text/Dictation tired Cardiovascular: chest pain; No no complaints, No edema, No lightheadedness, No orthopenea, No palpitations, No paroxysmal nocturnal dyspnea, No other Psychological: anxiety Exam/Review of Systems Exam Vitals Vital Signs Date Temp Pulse Resp B/P (MAP) Pulse Ox O2 O2 Flow FiO2 Time Delivery Rate 01/26/19 97.9 90 19 98/54 (69) 93 Room Air 07:13 01/26/19 4.0 05:30 01/25/19 36 11:30 Intake and Output 01/25/19 01/25/19 01/26/19 1515:00 23:00 07:00 IntakeIntake Total 1850 ml 1300 ml BalanceBalance 1850 ml 1300 ml Exam mood changes Constitutional: alert, oriented Psych: anxiety Head: normocephalic Eyes: nl conjunctiva Neck: supple Respiratory: diminished breath sounds Cardiovascular: regular rate and rhythm Gastrointestinal: soft Results Results 24hrs Laboratory Tests Test 01/25/19 15:59 01/25/19 23:20 01/26/19 05:24 01/26/19 05:27 Activated 70.0 H 59.8 H Partial Thromboplast Time Urine Opiates Screen Negative Urine Barbiturates Negative Urine Amphetamines Negative Screen Urine Negative Benzodiazepines Screen Urine Cocaine Screen Negative Urine Cannabinoids Positive White Blood Count 9.1 Red Blood Count 5.10 Hemoglobin 14.0 Hematocrit 43.1 Mean Corpuscular 84.5 Volume Mean Corpuscular 27.5 L Hemoglobin Mean Corpuscular 32.5 Hemoglobin Concent Red Cell 17.1 H Distribution Width Platelet Count 256 Mean Platelet Volume 11.0 H Immature 0.400 Granulocytes % Neutrophils % 61.4 Lymphocytes % 24.5 Monocytes % 8.5 Eosinophils % 3.9 Basophils % 1.3 Nucleated Red Blood 0.0 Cells % Immature 0.040 H Granulocytes # Neutrophils # 5.6 Lymphocytes # 2.2 Monocytes # 0.8 Eosinophils # 0.4 Basophils # 0.1 Nucleated Red Blood 0.0 Cells # Sodium Level 139 Potassium Level 4.1 Chloride Level 105 Carbon Dioxide Level 28 Anion Gap 6 Blood Urea Nitrogen 23 H Creatinine 1.04 Est Glomerular > 60 Filtrat Rate mL/min Glucose Level 107 # Hemoglobin A1c 7.3 H Calcium Level 8.5 Magnesium Level 2.0 Total Bilirubin 0.5 Direct Bilirubin 0.00 Indirect Bilirubin 0.5 Aspartate Amino 20 # Transf (AST/SGOT) Alanine 26 Aminotransferase (AL T/SGPT) Alkaline Phosphatase 69 B-Type Natriuretic 4830 H Peptide Total Protein 5.6 L Albumin 2.8 L Globulin 2.80 Albumin/Globulin 1.00 Ratio Thyroid Stimulating 0.961 Hormone (TSH) Free Thyroxine 1.31 Prothrombin Time 15.3 H Prothrombin Time 1.2 Ratio INR International 1.20 Normalized Ratio Medications Medication Current Medications Atorvastatin Calcium (Lipitor) 20 mg HS PO Last administered on 01/25/19at 21:32; Admin Dose 20 MG; Start 01/25/19 at 21:00 Benazepril HCl (Lotensin) 10 mg DAILY PO Last administered on 01/25/19at 10:14; Admin Dose 10 MG; Start 01/25/19 at 09:00 Carvedilol (Coreg) 6.25 mg BID PO Last administered on 01/25/19at 21:32; Admin Dose 6.25 MG; Start 01/25/19 at 09:00 Furosemide (Lasix) 40 mg DAILY@0600 PO Last administered on 01/26/19at 05:19; Admin Dose 40 MG; Start 01/25/19 at 06:00 Metronidazole (Flagyl) 500 mg Q8 PO Last administered on 01/26/19at 05:19; Admin Dose 500 MG; Start 01/25/19 at 06:00 Heparin Sodium (Porcine) 250 ml @ 16.5 mls/hr PER PROTOCOL IV Last administered on 01/26/19at 08:01; Admin Dose 18.7 MLS/HR; Start 01/25/19 at 06:00 Carbamazepine (Tegretol) 200 mg BID PO ; Start 01/25/19 at 09:00 Lamotrigine (Lamictal) 25 mg DAILY PO ; Start 01/25/19 at 09:00 Quetiapine Fumarate (Seroquel) 100 mg DAILY PO ; Start 01/25/19 at 09:00 Zolpidem Tartrate (Ambien) 5 mg HS PRN PO INSOMNIA; Start 01/25/19 at 06:00 Heparin Sodium (Porcine) (Heparin (1000 Units/ml)) PRN PRN IV PENDING LAB VALUE; Start 01/25/19 at 06:00 Acetaminophen (Tylenol Tab) 650 mg Q4H PRN PO MILD PAIN(1-3)OR ELEVATED TEMP; Start 01/25/19 at 06:00 Albuterol/ Ipratropium (Duoneb) 3 ml Q6H RESP THERAPY PRN HHN SHORTNESS OF BREATH Last administered on 01/25/19at 11:28; Admin Dose 3 ML; Start 01/25/19 at 11:30 Miscellaneous Information Patients own medicat... BID@10,16 XX ; Start 01/25/19 at 16:00 Piperacillin Sod/ Tazobactam Sod 100 ml @ 200 mls/hr Q8 IVPB Last administered on 01/26/19at 05:19; Admin Dose 200 MLS/HR; Start 01/25/19 at 22:00 Aspirin (Aspirin) 81 mg DAILY PO ; Start 01/26/19 at 09:00 Digoxin (Digoxin) 0.125 mg DAILY@13 PO Last administered on 01/25/19at 17:30; Admin Dose 0.125 MG; Start 01/25/19 at 16:30 Potassium Chloride (Klor-Con 10) 10 meq DAILY PO ; Start 01/26/19 at 09:00 MO URIOSTEGUI January 26, 2019 09:54
[2019-01-26] MEDS: BENAZEPRIL 10 MG TAB PO SCH (10:40)
[2019-01-26] MEDS: ASPIRIN 81 MG TAB PO SCH (10:40)
[2019-01-26] MEDS ORDERED: GLUCOSE GEL 15 GRAM TUBE BUCCAL PRN (11:30)
[2019-01-26] MEDS ORDERED: GLUCOSE GEL 15 GRAM TUBE PO PRN ×2 (11:30)
[2019-01-26] MEDS ORDERED: DEXTROSE 50% 50 ML SYRINGE IV PRN ×2 (11:30)
[2019-01-26] MEDS ORDERED: GLUCAGON 1 MG INJ IM PRN (11:30)
[2019-01-26] MEDS: INSULIN ASPART [NOVOLOG] 3 ML PEN SC SCH ×3 (11:48→21:00)
[2019-01-26] MEDS ORDERED: LORAZEPAM 1 MG TAB PO PRN (12:30)
--- NOTE | 2019-01-26 13:45 | CONS ---
Consult Date/Type/Reason Admit Date/Time January 25, 2019 at 04:06 Initial Consult Date 01/25/19 Type of Consultation: cv Requesting Provider: MO URIOSTEGUI Date/Time of Note DATE: 01/26/19 TIME: 13:43 Subjective Cardiology follow-up progress note covering for Dr. Membreno Subjective: Case discussed with staff telemetry was reviewed patient in sinus rhythm. He has been taking himself off the telemetry intermittently though No chest pain now. Complains of shortness of breath still and fatigue No bleeding is reported Objective General: no acute distress HEENT: NC/AT. pupils are equal. round. NECK: no stridor. CV: RRR. systolic murmur; no gallop or rubs. PULM: no wheezing or rhonchi. GI: SOFT, NT, ND, no rebound or guarding Extremity: trace B/L LE edema. no clubbing. neuro: awake and alert, OX3. Psych: calm and pleasant rectal: deferred Objective Vitals Vital Signs Date Temp Pulse Resp B/P (MAP) Pulse Ox O2 O2 Flow FiO2 Time Delivery Rate 01/26/19 94 12:00 01/26/19 97.3 19 90/49 (63) 98 Room Air 11:25 01/26/19 4.0 08:30 01/25/19 36 11:30 Intake and Output 01/25/19 01/25/19 01/26/19 1515:00 23:00 07:00 IntakeIntake Total 1850 ml 1300 ml BalanceBalance 1850 ml 1300 ml Results/Medications Result Diagram: 01/26/19 0501/26/1924 Results 24 hrs Laboratory Tests Test 01/25/19 15:59 01/25/19 23:20 01/26/19 05:24 01/26/19 05:27 Activated 70.0 H 59.8 H Partial Thromboplast Time Urine Opiates Screen Negative Urine Barbiturates Negative Urine Amphetamines Negative Screen Urine Negative Benzodiazepines Screen Urine Cocaine Screen Negative Urine Cannabinoids Positive White Blood Count 9.1 Red Blood Count 5.10 Hemoglobin 14.0 Hematocrit 43.1 Mean Corpuscular 84.5 Volume Mean Corpuscular 27.5 L Hemoglobin Mean Corpuscular 32.5 Hemoglobin Concent Red Cell 17.1 H Distribution Width Platelet Count 256 Mean Platelet Volume 11.0 H Immature 0.400 Granulocytes % Neutrophils % 61.4 Lymphocytes % 24.5 Monocytes % 8.5 Eosinophils % 3.9 Basophils % 1.3 Nucleated Red Blood 0.0 Cells % Immature 0.040 H Granulocytes # Neutrophils # 5.6 Lymphocytes # 2.2 Monocytes # 0.8 Eosinophils # 0.4 Basophils # 0.1 Nucleated Red Blood 0.0 Cells # Sodium Level 139 Potassium Level 4.1 Chloride Level 105 Carbon Dioxide Level 28 Anion Gap 6 Blood Urea Nitrogen 23 H Creatinine 1.04 Est Glomerular > 60 Filtrat Rate mL/min Glucose Level 107 # Hemoglobin A1c 7.3 H Calcium Level 8.5 Magnesium Level 2.0 Total Bilirubin 0.5 Direct Bilirubin 0.00 Indirect Bilirubin 0.5 Aspartate Amino 20 # Transf (AST/SGOT) Alanine 26 Aminotransferase (AL T/SGPT) Alkaline Phosphatase 69 B-Type Natriuretic 4830 H Peptide Total Protein 5.6 L Albumin 2.8 L Globulin 2.80 Albumin/Globulin 1.00 Ratio Thyroid Stimulating 0.961 Hormone (TSH) Free Thyroxine 1.31 Prothrombin Time 15.3 H Prothrombin Time 1.2 Ratio INR International 1.20 Normalized Ratio Home Meds Active Scripts Metronidazole* (Flagyl*) 500 Mg Tablet, 500 MG PO Q8 for 5 Days, TAB Prov:GINI JUNIOR MD 01/17/19 Furosemide* (Furosemide*) 40 Mg Tablet, 40 MG PO DAILY@0600 for 30 Days, TAB Prov:GINI JUNIOR MD 01/17/19 Atorvastatin Calcium (Atorvastatin Calcium) 20 Mg Tablet, 20 MG PO HS for 60 Days, TAB Prov:GINI JUNIOR MD 01/17/19 Carvedilol* (Carvedilol*) 6.25 Mg Tablet, 6.25 MG PO BID for 60 Days, #60 TAB Prov:GINI JUNIOR MD 01/17/19 Benazepril Hcl* (Benazepril Hcl*) 10 Mg Tablet, 10 MG PO DAILY for 30 Days, #30 TAB Prov:GINI JUNIOR MD 01/17/19 Discontinued Reported Medications Zolpidem Tartrate* (Zolpidem Tartrate*) 5 Mg Tablet, 5 MG PO QHS PRN for IN SOMNIA, #30 TAB 1 OR 2 TIMES A DAY 01/08/19 Discontinued Scripts Ciprofloxacin Hcl* (Ciprofloxacin Hcl*) 250 Mg Tablet, 250 MG PO BID for 5 Days, #14 TAB Prov:GINI JUNIOR MD 01/17/19 Aspirin* (Aspirin* EC) 81 Mg Tablet.dr, 81 MG PO DAILY for 30 Days, TAB Prov:GINI JUNIOR MD 01/17/19 Quetiapine Fumarate* (Seroquel*) 100 Mg Tablet, 100 MG PO as directed, #20 TAB Prov:RIKA WILEY 01/08/19 Lamotrigine* (Lamotrigine* ER) 25 Mg Tab.er.24, 25 MG PO as directed, #250 TAB Prov:RIKA WILEY 01/08/19 Carbamazepine* (Carbamazepine* XR) 200 Mg Tab.er.12h, 200 MG PO as directed, #18 0 TAB.SA Prov:RIKA WILEY 01/08/19 Medications Current Medications Atorvastatin Calcium (Lipitor) 20 mg HS PO Last administered on 01/25/19at 21:32; Admin Dose 20 MG; Start 01/25/19 at 21:00 Benazepril HCl (Lotensin) 10 mg DAILY PO Last administered on 01/26/19at 10:40; Admin Dose 10 MG; Start 01/25/19 at 09:00 Carvedilol (Coreg) 6.25 mg BID PO Last administered on 01/26/19at 10:39; Admin Dose 6.25 MG; Start 01/25/19 at 09:00 Furosemide (Lasix) 40 mg DAILY@0600 PO Last administered on 01/26/19at 05:19; Admin Dose 40 MG; Start 01/25/19 at 06:00 Metronidazole (Flagyl) 500 mg Q8 PO Last administered on 01/26/19at 05:19; Admin Dose 500 MG; Start 01/25/19 at 06:00 Heparin Sodium (Porcine) 250 ml @ 16.5 mls/hr PER PROTOCOL IV Last administered on 01/26/19at 08:01; Admin Dose 18.7 MLS/HR; Start 01/25/19 at 06:00 Carbamazepine (Tegretol) 200 mg BID PO ; Start 01/25/19 at 09:00 Lamotrigine (Lamictal) 25 mg DAILY PO ; Start 01/25/19 at 09:00 Quetiapine Fumarate (Seroquel) 100 mg DAILY PO ; Start 01/25/19 at 09:00 Zolpidem Tartrate (Ambien) 5 mg HS PRN PO INSOMNIA; Start 01/25/19 at 06:00 Heparin Sodium (Porcine) (Heparin (1000 Units/ml)) PRN PRN IV PENDING LAB VALUE; Start 01/25/19 at 06:00 Acetaminophen (Tylenol Tab) 650 mg Q4H PRN PO MILD PAIN(1-3)OR ELEVATED TEMP; Start 01/25/19 at 06:00 Albuterol/ Ipratropium (Duoneb) 3 ml Q6H RESP THERAPY PRN HHN SHORTNESS OF BREATH Last administered on 01/25/19at 11:28; Admin Dose 3 ML; Start 01/25/19 at 11:30 Miscellaneous Information Patients own medicat... BID@10,16 XX ; Start 01/25/19 at 16:00 Piperacillin Sod/ Tazobactam Sod 100 ml @ 200 mls/hr Q8 IVPB Last administered on 01/26/19at 05:19; Admin Dose 200 MLS/HR; Start 01/25/19 at 22:00 Aspirin (Aspirin) 81 mg DAILY PO Last administered on 01/26/19at 10:40; Admin Dose 81 MG; Start 01/26/19 at 09:00 Digoxin (Digoxin) 0.125 mg DAILY@13 PO Last administered on 01/25/19at 17:30; Admin Dose 0.125 MG; Start 01/25/19 at 16:30 Potassium Chloride (Klor-Con 10) 10 meq DAILY PO ; Start 01/26/19 at 09:00 Insulin Aspart (Novolog Insulin Pen) NOVOLOG *MILD* ALGORITHM WITH MEALS BEDTIME SC ; Start 01/26/19 at 12:00 Miscellaneous Information 1 ea NOTE XX ; Start 01/26/19 at 11:30 Glucose (Glutose) 15 gm Q15M PRN PO DECREASED GLUCOSE; Start 01/26/19 at 11:30 Glucose (Glutose) 22.5 gm Q15M PRN PO DECREASED GLUCOSE; Start 01/26/19 at 1 1:30 Dextrose (D50w Syringe) 25 ml Q15M PRN IV DECREASED GLUCOSE; Start 01/26/19 at 11:30 Dextrose (D50w Syringe) 50 ml Q15M PRN IV DECREASED GLUCOSE; Start 01/26/19 at 11:30 Glucagon (Glucagen) 1 mg Q15M PRN IM DECREASED GLUCOSE; Start 01/26/19 at 11:30 Glucose (Glutose) 15 gm Q15M PRN BUCCAL DECREASED GLUCOSE; Start 01/26/19 at 11:30 Lorazepam (Ativan) 1 mg Q6H PRN PO ANXIETY; Start 01/26/19 at 12:30 Assessment/Plan Hospital Course (Demo Recall) Congestive heart failure: Chronic secondary systolic heart failure Severe cardiomyopathy: Most likely nonischemic Reported LV thrombus Hypertension History of drug use Recommendations Anticoagulation to be continued. Patient is current on heparin drip. Ideally would be best to keep him on heparin and Coumadin until INR is therapeutic. However there are logistical issues and concern about this patient with a history of noncompliant to be on Coumadin at home. 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 But when I ask him when was the last time he saw him he states to me that he has not seen him for 2 years. Continue with AKASH inhibitor and Coreg Lasix will be continued daily Digoxin has been added to his regimen Thank you for his referral. We will continue to follow along with you until Dr. Membreno returns on Sunday YESENIA MURRY MD [facility] YESENIA MURRY MD January 26, 2019 13:45
[2019-01-26] MEDS: DIGOXIN 0.125 MG TAB PO SCH (13:51)
[2019-01-26] MEDS: ATORVASTATIN 20 MG TAB PO SCH (21:07)
[2019-01-27] VITALS (8 sets, daily range): BP systolic 107–114; BP diastolic 73–83; PULSE 71–107; RESP 18
[2019-01-27] MEDS: HEPARIN 25000 UNITS/250 ML 250 ML IV SCH ×2 (04:09→14:46)
[2019-01-27] MEDS: FUROSEMIDE 40 MG TAB PO SCH ×2 (06:00→06:49)
[2019-01-27] MEDS: metroNIDAZOLE 500 MG TAB PO SCH ×2 (06:00→06:48)
[2019-01-27] MEDS: PIPER-TAZO 3.375 GM IV (PMX) 100 ML IVPB SCH ×3 (06:49→21:00)
[2019-01-27] MEDS: INSULIN ASPART [NOVOLOG] 3 ML PEN SC SCH ×4 (08:00→21:00)
[2019-01-27] MEDS: LAMOTRIGINE 25 MG TAB PO SCH (09:00)
[2019-01-27] MEDS: ASPIRIN 81 MG TAB PO SCH (09:00)
[2019-01-27] MEDS: BENAZEPRIL 10 MG TAB PO SCH (09:00)
[2019-01-27] MEDS: POTASSIUM CHLORIDE (SR) 10 MEQ TAB PO SCH (09:00)
[2019-01-27] MEDS: QUETIAPINE 100 MG TAB PO SCH (09:00)
[2019-01-27] MEDS: CARBAMAZEPINE 200 MG TAB PO SCH ×3 (09:00→21:02)
--- NOTE | 2019-01-27 11:59 | PN ---
Date/Time of Note Date/Time of Note DATE: 01/27/19 TIME: 11:55 Assessment/Plan VTE Prophylaxis Risk score (from Ns)>0 risk: 4 SCD applied (from Ns): No SCD contraindicated: low risk/ambulating Pharmacological prophylaxis: NA/contraindicated Pharm contraindication: low risk/ambulating Lines/Catheters IV Catheter Type (from [facility]): Peripheral IV Urinary Cath still in place: No Assessment/Plan Assessment/Plan 1. Shortness of breath likely secondary to cardiac decompensation. CHF exacerbation with BNP 4425 2 bilateral ventricular apical thrombi noted on ECHO and b/l renal infarcts 2. SIRS, WBC in [facility] is 12, now is normal 3. Nonischemic cardiomyopathy with an ejection fraction of 20% to 25%. Last Echo in [facility] reduced EF 10--20% and bilateral ventriculi apical thrombi. 4. SHENG, creatinine 1.32 in [facility]. More likely related to cardiac decompensation. 5. NSTEMI with elevated troponin. Pt reported chest pain 01/23/2019, none today 6. On CT abdomen: renal infarcts, more pronounced in right kidney 7. DM type II, new 8. Obesity 9. Pulmonary edema with small pericardial and right pleural effusion 10. Cholelithiasis without evidence of cholecystitis 11. History of bipolar disorder. 12. History of hypertension, now normotensive on meds. 13. Patient is positive for methamphetamine and cannabinoids in the [facility]. History of drug abuse. Withdrawal. Assessment/Plan -he will need long-term anticoagulation, patient is if patient will be compliant with Coumadin -Talked to cardiology -fluid restrictions 1.5 Liters /day -cw heparin gtt for now -c/w furosemide -need cardiac optimization. -Hg A1 C 7.8 -hypoglycemic protocol -diabetic teaching Result Diagram: 01/27/19 0125 01/27/19 0125 Results 24hrs Laboratory Tests Test 01/26/19 13:55 01/26/19 17:17 01/26/19 17:56 01/26/19 21:10 Activated 31.1 65.1 H Partial Thromboplast Time Bedside Glucose 110 134 Test 01/27/19 01:25 White Blood Count 9.4 Red Blood Count 4.99 Hemoglobin 13.7 L Hematocrit 42.4 Mean Corpuscular 85.0 Volume Mean Corpuscular 27.5 L Hemoglobin Mean Corpuscular 32.3 Hemoglobin Concent Red Cell 16.7 H Distribution Width Platelet Count 238 Mean Platelet Volume 10.4 Immature 0.300 Granulocytes % Neutrophils % 67.6 Lymphocytes % 19.3 Monocytes % 8.5 Eosinophils % 3.2 Basophils % 1.1 Nucleated Red Blood 0.0 Cells % Immature 0.030 Granulocytes # Neutrophils # 6.4 Lymphocytes # 1.8 Monocytes # 0.8 Eosinophils # 0.3 Basophils # 0.1 Nucleated Red Blood 0.0 Cells # Activated 63.8 H Partial Thromboplast Time Sodium Level 140 Potassium Level 4.3 Chloride Level 106 Carbon Dioxide Level 27 Anion Gap 7 Blood Urea Nitrogen 23 H Creatinine 1.10 Est Glomerular > 60 Filtrat Rate mL/min Glucose Level 93 Calcium Level 8.6 Subjective 24 Hr Interval Summary Free Text/Dictation Patient complains that he is feeling tired denies any chest pain shortness of breath Exam/Review of Systems Exam Vitals Vital Signs Date Temp Pulse Resp B/P (MAP) Pulse Ox O2 O2 Flow FiO2 Time Delivery Rate 01/27/19 98.4 75 18 107/73 95 Room Air 11:00 (84) 01/27/19 4.0 05:43 01/25/19 36 11:30 Intake and Output 01/26/19 01/26/19 01/27/19 1515:00 23:00 07:00 IntakeIntake Total 900 ml 950 ml OutputOutput Total 800 ml BalanceBalance 900 ml 150 ml Exam mood changes Constitutional: alert, oriented Psych: anxiety Head: normocephalic Eyes: nl conjunctiva Neck: supple Respiratory: diminished breath sounds Cardiovascular: regular rate and rhythm Gastrointestinal: soft Results Results 24hrs Laboratory Tests Test 01/26/19 13:55 01/26/19 17:17 01/26/19 17:56 01/26/19 21:10 Activated 31.1 65.1 H Partial Thromboplast Time Bedside Glucose 110 134 Test 01/27/19 01:25 White Blood Count 9.4 Red Blood Count 4.99 Hemoglobin 13.7 L Hematocrit 42.4 Mean Corpuscular 85.0 Volume Mean Corpuscular 27.5 L Hemoglobin Mean Corpuscular 32.3 Hemoglobin Concent Red Cell 16.7 H Distribution Width Platelet Count 238 Mean Platelet Volume 10.4 Immature 0.300 Granulocytes % Neutrophils % 67.6 Lymphocytes % 19.3 Monocytes % 8.5 Eosinophils % 3.2 Basophils % 1.1 Nucleated Red Blood 0.0 Cells % Immature 0.030 Granulocytes # Neutrophils # 6.4 Lymphocytes # 1.8 Monocytes # 0.8 Eosinophils # 0.3 Basophils # 0.1 Nucleated Red Blood 0.0 Cells # Activated 63.8 H Partial Thromboplast Time Sodium Level 140 Potassium Level 4.3 Chloride Level 106 Carbon Dioxide Level 27 Anion Gap 7 Blood Urea Nitrogen 23 H Creatinine 1.10 Est Glomerular > 60 Filtrat Rate mL/min Glucose Level 93 Calcium Level 8.6 Medications Medication Current Medications Atorvastatin Calcium (Lipitor) 20 mg HS PO Last administered on 01/26/19 21:07; Admin Dose 20 MG; Start 01/25/19 at 21:00 Benazepril HCl (Lotensin) 10 mg DAILY PO Last administered on 01/26/19at 10:40; Admin Dose 10 MG; Start 01/25/19 at 09:00 Carvedilol (Coreg) 6.25 mg BID PO Last administered on 01/26/19 21:20; Admin Dose 6.25 MG; Start 01/25/19 at 09:00 Furosemide (Lasix) 40 mg DAILY@0600 PO Last administered on 01/26/19 05:19; Admin Dose 40 MG; Start 01/25/19 at 06:00 Metronidazole (Flagyl) 500 mg Q8 PO Last administered on 01/26/19at 21:07; Admin Dose 500 MG; Start 01/25/19 at 06:00 Heparin Sodium (Porcine) 250 ml @ 16.5 mls/hr PER PROTOCOL IV Last administered on 01/27/19at 04:09; Admin Dose 23 MLS/HR; Start 01/25/19 at 06:00 Carbamazepine (Tegretol) 200 mg BID PO ; Start 01/25/19 at 09:00 Lamotrigine (Lamictal) 25 mg DAILY PO ; Start 01/25/19 at 09:00 Quetiapine Fumarate (Seroquel) 100 mg DAILY PO ; Start 01/25/19 at 09:00 Zolpidem Tartrate (Ambien) 5 mg HS PRN PO INSOMNIA; Start 01/25/19 at 06:00 Heparin Sodium (Porcine) (Heparin (1000 Units/ml)) PRN PRN IV PENDING LAB VALUE; Start 01/25/19 at 06:00 Acetaminophen (Tylenol Tab) 650 mg Q4H PRN PO MILD PAIN(1-3)OR ELEVATED TEMP; Start 01/25/19 at 06:00 Albuterol/ Ipratropium (Duoneb) 3 ml Q6H RESP THERAPY PRN HHN SHORTNESS OF BREATH Last administered on 01/25/19at 11:28; Admin Dose 3 ML; Start 01/25/19 at 11:30 Miscellaneous Information Patients own medicat... BID@10,16 XX ; Start 01/25/19 at 16:00 Piperacillin Sod/ Tazobactam Sod 100 ml @ 200 mls/hr Q8 IVPB Last administered on 01/27/19at 06:49; Admin Dose 200 MLS/HR; Start 01/25/19 at 22:00 Aspirin (Aspirin) 81 mg DAILY PO Last administered on 01/26/19at 10:40; Admin Dose 81 MG; Start 01/26/19 at 09:00 Digoxin (Digoxin) 0.125 mg DAILY@13 PO Last administered on 01/26/19at 13:51; Admin Dose 0.125 MG; Start 01/25/19 at 16:30 Potassium Chloride (Klor-Con 10) 10 meq DAILY PO ; Start 01/26/19 at 09:00 Insulin Aspart (Novolog Insulin Pen) NOVOLOG *MILD* ALGORITHM WITH MEALS BEDTIME SC ; Start 01/26/19 at 12:00 Miscellaneous Information 1 ea NOTE XX ; Start 01/26/19 at 11:30 Glucose (Glutose) 15 gm Q15M PRN PO DECREASED GLUCOSE; Start 01/26/19 at 11:30 Glucose (Glutose) 22.5 gm Q15M PRN PO DECREASED GLUCOSE; Start 01/26/19 at 11:30 Dextrose (D50w Syringe) 25 ml Q15M PRN IV DECREASED GLUCOSE; Start 01/26/19 at 11:30 Dextrose (D50w Syringe) 50 ml Q15M PRN IV DECREASED GLUCOSE; Start 01/26/19 at 11:30 Glucagon (Glucagen) 1 mg Q15M PRN IM DECREASED GLUCOSE; Start 01/26/19 at 11:30 Glucose (Glutose) 15 gm Q15M PRN BUCCAL DECREASED GLUCOSE; Start 01/26/19 at 11:30 Lorazepam (Ativan) 1 mg Q6H PRN PO ANXIETY Last administered on 01/26/19at 23:20; Admin Dose 1 MG; Start 01/26/19 at 12:30 GINI JUNIOR MD January 27, 2019 11:59
--- NOTE | 2019-01-27 12:48 | CONS ---
Assessment/Plan Cardiology NYHA: III Heart Failure Type: Acute on Chronic Heart Failure Type: Diastolic Assessment/Plan Hospital Course (Demo Recall) Congestive heart failure: Chronic secondary systolic heart failure Severe cardiomyopathy LVEF 20% RV/LV thrombus Hypertension History of drug use -Echocardiogram report from outside facility with evidence of left ventricular thrombus as well as right ventricular thrombus. Echo contrast study was performed. Ejection fraction was 20%. -I did discuss this with the patient, ideally patient to be on Coumadin therapy and will need frequent INR checks. Became angry saying he does not want to go to a doctor because he can't get an appointment. I did discuss we could use a novel anticoagulant which is not a first-line, he prefers that option given he does not want to go for regular INR checks. Given patient with known history of noncompliance, may be our best option at the current time -We will continue systemic heparin at the current time, of note, we could switch to Lovenox. -case management involvement to see if patient can be approved for novel anticoagulant Cont BB, AKASH-I, of note, pt refusing meds -D/W primary physician Consultation Date/Type/Reason Admit Date/Time January 25, 2019 at 04:06 Initial Consult Date 01/25/19 Type of Consult Cardiology Requesting Provider: MO URIOSTEGUI Date/Time of Note DATE: 01/27/19 TIME: 12:45 24 HR Interval Summary Free Text/Dictation no sob,cp,palp Exam/Review of Systems Vital Signs Vitals Vital Signs Date Temp Pulse Resp B/P (MAP) Pulse Ox O2 O2 Flow FiO2 Time Delivery Rate 01/27/19 98 12:10 01/27/19 98.4 18 107/73 95 Room Air 11:00 (84) 01/27/19 4.0 05:43 01/25/19 36 11:30 Intake and Output 01/26/19 01/26/19 01/27/19 1414:59 22:59 06:59 IntakeIntake Total 900 ml 950 ml OutputOutput Total 800 ml BalanceBalance 900 ml 150 ml Exam Constitutional: alert, oriented (nad, no dyspnea with speaking) Head: normocephalic Respiratory: other (course bs, no wheeze) Cardiovascular: regular rate and rhythm (s1s2) Gastrointestinal: soft, non-tender, bowel sounds Extremities: edema (trace) Labs Result Diagram: 01/27/19 0125 01/27/19 0125 Results 24hrs Laboratory Tests Test 01/26/19 13:55 01/26/19 17:17 01/26/19 17:56 01/26/19 21:10 Activated 31.1 65.1 H Partial Thromboplast Time Bedside Glucose 110 134 Test 01/27/19 01:25 01/27/19 12:34 White Blood Count 9.4 Red Blood Count 4.99 Hemoglobin 13.7 L Hematocrit 42.4 Mean Corpuscular 85.0 Volume Mean Corpuscular 27.5 L Hemoglobin Mean Corpuscular 32.3 Hemoglobin Concent Red Cell 16.7 H Distribution Width Platelet Count 238 Mean Platelet Volume 10.4 Immature 0.300 Granulocytes % Neutrophils % 67.6 Lymphocytes % 19.3 Monocytes % 8.5 Eosinophils % 3.2 Basophils % 1.1 Nucleated Red Blood 0.0 Cells % Immature 0.030 Granulocytes # Neutrophils # 6.4 Lymphocytes # 1.8 Monocytes # 0.8 Eosinophils # 0.3 Basophils # 0.1 Nucleated Red Blood 0.0 Cells # Activated 63.8 H Partial Thromboplast Time Sodium Level 140 Potassium Level 4.3 Chloride Level 106 Carbon Dioxide Level 27 Anion Gap 7 Blood Urea Nitrogen 23 H Creatinine 1.10 Est Glomerular > 60 Filtrat Rate mL/min Glucose Level 93 Calcium Level 8.6 Bedside Glucose 139 Medications Medications Current Medications Atorvastatin Calcium (Lipitor) 20 mg HS PO Last administered on 01/26/19at 21:07; Admin Dose 20 MG; Start 01/25/19 at 21:00 Benazepril HCl (Lotensin) 10 mg DAILY PO Last administered on 01/26/19at 10:40; Admin Dose 10 MG; Start 01/25/19 at 09:00 Carvedilol (Coreg) 6.25 mg BID PO Last administered on 01/26/19 21:20; Admin Dose 6.25 MG; Start 01/25/19 at 09:00 Furosemide (Lasix) 40 mg DAILY@0600 PO Last administered on 01/26/19at 05:19; Admin Dose 40 MG; Start 01/25/19 at 06:00 Heparin Sodium (Porcine) 250 ml @ 16.5 mls/hr PER PROTOCOL IV Last administered on 01/27/19at 04:09; Admin Dose 23 MLS/HR; Start 01/25/19 at 06:00 Carbamazepine (Tegretol) 200 mg BID PO ; Start 01/25/19 at 09:00 Lamotrigine (Lamictal) 25 mg DAILY PO ; Start 01/25/19 at 09:00 Quetiapine Fumarate (Seroquel) 100 mg DAILY PO ; Start 01/25/19 at 09:00 Zolpidem Tartrate (Ambien) 5 mg HS PRN PO INSOMNIA; Start 01/25/19 at 06:00 Heparin Sodium (Porcine) (Heparin (1000 Units/ml)) PRN PRN IV PENDING LAB VALUE; Start 01/25/19 at 06:00 Acetaminophen (Tylenol Tab) 650 mg Q4H PRN PO MILD PAIN(1-3)OR ELEVATED TEMP; Start 01/25/19 at 06:00 Albuterol/ Ipratropium (Duoneb) 3 ml Q6H RESP THERAPY PRN HHN SHORTNESS OF BREATH Last administered on 01/25/19at 11:28; Admin Dose 3 ML; Start 01/25/19 at 11:30 Miscellaneous Information Patients own medicat... BID@10,16 XX ; Start 01/25/19 at 16:00 Piperacillin Sod/ Tazobactam Sod 100 ml @ 200 mls/hr Q8 IVPB Last administered on 01/27/19at 06:49; Admin Dose 200 MLS/HR; Start 01/25/19 at 22:00 Aspirin (Aspirin) 81 mg DAILY PO Last administered on 01/26/19at 10:40; Admin Dose 81 MG; Start 01/26/19 at 09:00 Digoxin (Digoxin) 0.125 mg DAILY@13 PO Last administered on 01/26/19at 13:51; Admin Dose 0.125 MG; Start 01/25/19 at 16:30 Potassium Chloride (Klor-Con 10) 10 meq DAILY PO ; Start 01/26/19 at 09:00 Insulin Aspart (Novolog Insulin Pen) NOVOLOG *MILD* ALGORITHM WITH MEALS BEDTIME SC ; Start 01/26/19 at 12:00 Miscellaneous Information 1 ea NOTE XX ; Start 01/26/19 at 11:30 Glucose (Glutose) 15 gm Q15M PRN PO DECREASED GLUCOSE; Start 01/26/19 at 11:30 Glucose (Glutose) 22.5 gm Q15M PRN PO DECREASED GLUCOSE; Start 01/26/19 at 11:30 Dextrose (D50w Syringe) 25 ml Q15M PRN IV DECREASED GLUCOSE; Start 01/26/19 at 11:30 Dextrose (D50w Syringe) 50 ml Q15M PRN IV DECREASED GLUCOSE; Start 01/26/19 at 11:30 Glucagon (Glucagen) 1 mg Q15M PRN IM DECREASED GLUCOSE; Start 01/26/19 at 11:30 Glucose (Glutose) 15 gm Q15M PRN BUCCAL DECREASED GLUCOSE; Start 01/26/19 at 11:30 Lorazepam (Ativan) 1 mg Q6H PRN PO ANXIETY Last administered on 01/26/19at 23:20; Admin Dose 1 MG; Start 01/26/19 at 12:30 Sawyer Sullivan DO January 27, 2019 12:48
[2019-01-27] MEDS: DIGOXIN 0.125 MG TAB PO SCH (13:06)
[2019-01-27] MEDS: ATORVASTATIN 20 MG TAB PO SCH (20:59)
[2019-01-28] VITALS: PULSE 90
[2019-01-28 03:53] VITALS: BP 119/80; PULSE 87; RESP 18
[2019-01-28] MEDS: FUROSEMIDE 40 MG TAB PO SCH (05:46)
[2019-01-28] MEDS: PIPER-TAZO 3.375 GM IV (PMX) 100 ML IVPB SCH ×2 (05:46→14:37)
[2019-01-28] MEDS: HEPARIN 25000 UNITS/250 ML 250 ML IV SCH (07:00)
[2019-01-28 07:51] VITALS: BP 110/67; PULSE 81; RESP 18
[2019-01-28] MEDS: INSULIN ASPART [NOVOLOG] 3 ML PEN SC SCH ×3 (08:00→17:01)
[2019-01-28] MEDS: POTASSIUM CHLORIDE (SR) 10 MEQ TAB PO SCH (09:00)
[2019-01-28] MEDS: BENAZEPRIL 10 MG TAB PO SCH (09:00)
[2019-01-28] MEDS: QUETIAPINE 100 MG TAB PO SCH (09:00)
[2019-01-28] MEDS: LAMOTRIGINE 25 MG TAB PO SCH (09:00)
[2019-01-28] MEDS: ASPIRIN 81 MG TAB PO SCH (09:00)
[2019-01-28 11:48] VITALS: BP 116/76; PULSE 89; RESP 18
[2019-01-28] MEDS: DIGOXIN 0.125 MG TAB PO SCH (12:58)
--- NOTE | 2019-01-28 15:04 | PN ---
Date/Time of Note Date/Time of Note DATE: 01/28/19 TIME: 15:01 Assessment/Plan VTE Prophylaxis Risk score (from Ns)>0 risk: 4 SCD applied (from Ns): No SCD contraindicated: low risk/ambulating Pharmacological prophylaxis: NA/contraindicated Pharm contraindication: low risk/ambulating Lines/Catheters IV C[facility]ter Type (from [facility]): Peripheral IV Urinary Cath still in place: No Assessment/Plan Assessment/Plan 1 Shortness of breath likely secondary to cardiac decompensation. CHF exacerbation with BNP 4425 2 bilateral ventricular apical thrombi noted on ECHO and b/l renal infarcts 2. SIRS, WBC in [facility] is 12, now is normal 3. Nonischemic cardiomyopathy with an ejection fraction of 20% to 25%. Last Echo in [facility] reduced EF 10--20% and bilateral ventriculi apical thrombi. 4. SHENG, creatinine 1.32 in [facility] hospital. More likely related to cardiac decompensation. 5. NSTEMI with elevated troponin. Pt reported chest pain 01/23/2019, none today 6. On CT abdomen: renal infarcts, more pronounced in right kidney 7. DM type II, new 8. Obesity 9. Pulmonary edema with small pericardial and right pleural effusion 10. Cholelithiasis without evidence of cholecystitis 11. History of bipolar disorder. 12. History of hypertension, now normotensive on meds. 13. Patient is positive for methamphetamine and cannabinoids in the [facility]. History of drug abuse. Withdrawal. Assessment/Plan -he will need long-term anticoagulation, patient is if patient will be compliant with Coumadin, to the patient in detail, patient will need to follow-up in the Coumadin clinic for regular INR checks which would be tedious, want to continue with Eliquis as long as is covered with insurance -spoke to case repairer got vouchers for Eliquis -Talked to cardiology -fluid restrictions 1.5 Liters /day -c/w furosemide -need cardiac optimization. -Hg A1 C 7.8 -hypoglycemic protocol -diabetic teaching dc planning Result Diagram: 01/27/19 0125 01/27/19 0125 Results 24hrs Laboratory Tests Test 01/27/19 16:25 01/27/19 17:17 01/27/19 20:17 01/28/19 04:24 Activated 122.7 *H 46.0 H Partial Thromboplast Time Bedside Glucose 123 116 Test 01/28/19 12:56 Bedside Glucose 171 Subjective 24 Hr Interval Summary Free Text/Dictation Spoke to the patient about taking Eliquis/Coumadin explained about process and cons Willing to take Eliquis as long as it is covered with insurance Exam/Review of Systems Exam Vitals Vital Signs Date Temp Pulse Resp B/P (MAP) Pulse Ox O2 O2 Flow FiO2 Time Delivery Rate 01/28/19 98.0 89 18 116/76 95 Room Air 11:48 (89) 01/28/19 4.0 08:30 01/28/19 36 02:31 Intake and Output 01/27/19 01/27/19 01/28/19 1515:00 23:00 07:00 IntakeIntake Total 1700 ml 1100 ml BalanceBalance 1700 ml 1100 ml Exam mood changes Constitutional: alert, oriented Psych: anxiety Head: normocephalic Eyes: nl conjunctiva Neck: supple Respiratory: diminished breath sounds Cardiovascular: regular rate and rhythm Gastrointestinal: soft Results Results 24hrs Laboratory Tests Test 01/27/19 16:25 01/27/19 17:17 01/27/19 20:17 01/28/19 04:24 Activated 122.7 *H 46.0 H Partial Thromboplast Time Bedside Glucose 123 116 Test 01/28/19 12:56 Bedside Glucose 171 Medications Medication Current Medications Atorvastatin Calcium (Lipitor) 20 mg HS PO Last administered on 01/27/19at 20:59; Admin Dose 20 MG; Start 01/25/19 at 21:00 Benazepril HCl (Lotensin) 10 mg DAILY PO Last administered on 01/26/19at 10:40; Admin Dose 10 MG; Start 01/25/19 at 09:00 Carvedilol (Coreg) 6.25 mg BID PO Last administered on 01/28/19at 13:04; Admin Dose 6.25 MG; Start 01/25/19 at 09:00 Furosemide (Lasix) 40 mg DAILY@0600 PO Last administered on 01/28/19at 05:46; Admin Dose 40 MG; Start 01/25/19 at 06:00 Zolpidem Tartrate (Ambien) 5 mg HS PRN PO INSOMNIA; Start 01/25/19 at 06:00 Heparin Sodium (Porcine) (Heparin (1000 Units/ml)) PRN PRN IV PENDING LAB VALUE Last administered on 01/28/19at 06:58; Admin Dose 8,900 UNIT; Start 01/25/19 at 06:00 Acetaminophen (Tylenol Tab) 650 mg Q4H PRN PO MILD PAIN(1-3)OR ELEVATED TEMP; Start 01/25/19 at 06:00 Albuterol/ Ipratropium (Duoneb) 3 ml Q6H RESP THERAPY PRN HHN SHORTNESS OF BREATH Last administered on 01/25/19at 11:28; Admin Dose 3 ML; Start 01/25/19 at 11:30 Miscellaneous Information Patients own medicat... BID@10,16 XX ; Start 01/25/19 at 16:00 Piperacillin Sod/ Tazobactam Sod 100 ml @ 200 mls/hr Q8 IVPB Last administered on 01/28/19at 14:37; Admin Dose 200 MLS/HR; Start 01/25/19 at 22:00 Aspirin (Aspirin) 81 mg DAILY PO Last administered on 01/26/19at 10:40; Admin Dose 81 MG; Start 01/26/19 at 09:00 Digoxin (Digoxin) 0.125 mg DAILY@13 PO Last administered on 01/28/19at 12:58; Admin Dose 0.125 MG; Start 01/25/19 at 16:30 Potassium Chloride (Klor-Con 10) 10 meq DAILY PO ; Start 01/26/19 at 09:00 Insulin Aspart (Novolog Insulin Pen) NOVOLOG *MILD* ALGORITHM WITH MEALS BEDTIME SC ; Start 01/26/19 at 12:00 Miscellaneous Information 1 ea NOTE XX ; Start 01/26/19 at 11:30 Glucose (Glutose) 15 gm Q15M PRN PO DECREASED GLUCOSE; Start 01/26/19 at 11:30 Glucose (Glutose) 22.5 gm Q15M PRN PO DECREASED GLUCOSE; Start 01/26/19 at 11:30 Dextrose (D50w Syringe) 25 ml Q15M PRN IV DECREASED GLUCOSE; Start 01/26/19 at 11:30 Dextrose (D50w Syringe) 50 ml Q15M PRN IV DECREASED GLUCOSE; Start 01/26/19 at 11:30 Glucagon (Glucagen) 1 mg Q15M PRN IM DECREASED GLUCOSE; Start 01/26/19 at 11:30 Glucose (Glutose) 15 gm Q15M PRN BUCCAL DECREASED GLUCOSE; Start 01/26/19 at 11:30 Lorazepam (Ativan) 1 mg Q6H PRN PO ANXIETY Last administered on 01/26/19at 23:20; Admin Dose 1 MG; Start 01/26/19 at 12:30 GINI JUNIOR MD January 28, 2019 15:04
--- NOTE | 2019-01-28 15:06 | PDOCDIS ---
Discharge Instructions DIAGNOSIS Discharge Diagnosis b/l ventricular thrombus renal infarct CHF CONDITION [id number] Patient Condition: [id number] Fair HOME CARE INSTRUCTIONS: [id number] Diet Instructions: [id number] Modified Fat ACTIVITY: [id number] Activity Restrictions: [id number] Slowly Increase Activity Rest between Activity Avoid heavy lifting FOLLOW UP/APPOINTMENTS Follow-up Plan F/U Dr Sullivan in1-2 weeks fu PCP in 2 weeks Return to ER if has chest pain or shortness of breath GINI JUNIOR MD January 28, 2019 15:06
[2019-01-28] MEDS ORDERED: DIGO125T PO (15:07)
[2019-01-28] MEDS ORDERED: APIX5TAB PO (15:07)
[2019-01-28] MEDS ORDERED: FURO40TA4 PO (15:07)
[2019-01-28 15:44] VITALS: BP 119/84; PULSE 92; RESP 18
[2019-01-28] MEDS ORDERED: APIXABAN 5 MG TABLET PO ONE (16:00)
--- NOTE | 2019-01-28 17:26 | CONS ---
Assessment/Plan Cardiology NYHA: III Heart Failure Type: Acute on Chronic Heart Failure Type: Diastolic Assessment/Plan Hospital Course (Demo Recall) Congestive heart failure: Chronic secondary systolic heart failure Severe cardiomyopathy LVEF 20% RV/LV thrombus Hypertension History of drug use Poor compliance -Echocardiogram report from outside facility with evidence of left ventricular thrombus as well as right ventricular thrombus. Echo contrast study was performed. Ejection fraction was 20%. -I did discuss this with the patient, ideally patient to be on Coumadin therapy and will need frequent INR checks. Became angry yesterday saying he does not want to go to a doctor because he can't get an appointment. I did discuss we could use a novel anticoagulant which is not a first-line, he prefers that option given he does not want to go for regular INR checks. Given patient with known history of noncompliance, may be our best option at the current time -Case management involvement to see if patient can be approved for novel anticoagulant -Cont BB, AKASH-I, I did discuss with the patient again the importance of compliance with medications and cessation of illicit drugs -DC planning Consultation Date/Type/Reason Admit Date/Time January 25, 2019 at 04:06 Initial Consult Date 01/25/19 Type of Consult Cardiology Requesting Provider: MO URIOSTEGUI Date/Time of Note DATE: 01/28/19 TIME: 17:24 24 HR Interval Summary Free Text/Dictation Denies shortness of breath, chest pain or palpitations Exam/Review of Systems Vital Signs Vitals Vital Signs Date Temp Pulse Resp B/P (MAP) Pulse Ox O2 O2 Flow FiO2 Time Delivery Rate 01/28/19 98.1 92 18 119/84 97 Room Air 15:44 (96) 01/28/19 4.0 08:30 01/28/19 36 02:31 Intake and Output 01/27/19 01/27/19 01/28/19 1515:00 23:00 07:00 IntakeIntake Total 1700 ml 1100 ml BalanceBalance 1700 ml 1100 ml Exam Constitutional: alert, oriented (No apparent distress) Head: normocephalic Respiratory: other (Coarse breath sounds bilaterally, no wheezing) Cardiovascular: regular rate and rhythm (S1-S2 heard) Gastrointestinal: soft, non-tender, bowel sounds Extremities: edema (Trace) Labs Result Diagram: 01/27/1912401/27/19 0125 Results 24hrs Laboratory Tests Test 01/27/19 20:17 01/28/19 04:24 01/28/19 12:56 01/28/19 13:44 Bedside Glucose 116 171 Activated 46.0 H > 180.0 *H Partial Thromboplast Time Test 01/28/19 17:00 Bedside Glucose 166 Medications Medications Current Medications Atorvastatin Calcium (Lipitor) 20 mg HS PO Last administered on 01/27/19at 2 0:59; Admin Dose 20 MG; Start 01/25/19 at 21:00 Benazepril HCl (Lotensin) 10 mg DAILY PO Last administered on 01/26/19at 10:40; Admin Dose 10 MG; Start 01/25/19 at 09:00 Carvedilol (Coreg) 6.25 mg BID PO Last administered on 01/28/19 13:04; Admin Dose 6.25 MG; Start 01/25/19 at 09:00 Furosemide (Lasix) 40 mg DAILY@0600 PO Last administered on 01/28/19at 05:46; Admin Dose 40 MG; Start 01/25/19 at 06:00 Zolpidem Tartrate (Ambien) 5 mg HS PRN PO INSOMNIA; Start 01/25/19 at 06:00 Acetaminophen (Tylenol Tab) 650 mg Q4H PRN PO MILD PAIN(1-3)OR ELEVATED TEMP; Start 01/25/19 at 06:00 Albuterol/ Ipratropium (Duoneb) 3 ml Q6H RESP THERAPY PRN HHN SHORTNESS OF BREATH Last administered on 01/25/19at 11:28; Admin Dose 3 ML; Start 01/25/19 at 11:30 Miscellaneous Information Patients own medicat... BID@10,16 XX ; Start 01/25/19 at 16:00 Piperacillin Sod/ Tazobactam Sod 100 ml @ 200 mls/hr Q8 IVPB Last administered on 01/28/19at 14:37; Admin Dose 200 MLS/HR; Start 01/25/19 at 22:00 Aspirin (Aspirin) 81 mg DAILY PO Last administered on 01/26/19at 10:40; Admin Dose 81 MG; Start 01/26/19 at 09:00 Digoxin (Digoxin) 0.125 mg DAILY@13 PO Last administered on 01/28/19at 12:58; Admin Dose 0.125 MG; Start 01/25/19 at 16:30 Potassium Chloride (Klor-Con 10) 10 meq DAILY PO ; Start 01/26/19 at 09:00 Insulin Aspart (Novolog Insulin Pen) NOVOLOG *MILD* ALGORITHM WITH MEALS BEDTIME SC ; Start 01/26/19 at 12:00 Miscellaneous Information 1 ea NOTE XX ; Start 01/26/19 at 11:30 Glucose (Glutose) 15 gm Q15M PRN PO DECREASED GLUCOSE; Start 01/26/19 at 11:30 Glucose (Glutose) 22.5 gm Q15M PRN PO DECREASED GLUCOSE; Start 01/26/19 at 11:30 Dextrose (D50w Syringe) 25 ml Q15M PRN IV DECREASED GLUCOSE; Start 01/26/19 at 11:30 Dextrose (D50w Syringe) 50 ml Q15M PRN IV DECREASED GLUCOSE; Start 01/26/19 at 11:30 Glucagon (Glucagen) 1 mg Q15M PRN IM DECREASED GLUCOSE; Start 01/26/19 at 11:30 Glucose (Glutose) 15 gm Q15M PRN BUCCAL DECREASED GLUCOSE; Start 01/26/19 at 11:30 Lorazepam (Ativan) 1 mg Q6H PRN PO ANXIETY Last administered on 01/26/19at 23:20; Admin Dose 1 MG; Start 01/26/19 at 12:30 Sawyer Sullivan DO January 28, 2019 17:26
== END 2019-01-28 18:36 | disposition home or self-care (01) | DRG 280 ==
LOC: 6WM 01-25 04:06
PROVIDERS: ADMIT Internal Medicine; ATTEND Internal Medicine
DX: I21.4 Non-ST elevation (NSTEMI) myocardial infarction (principal); I50.23 Acute on chronic systolic (congestive) heart failure; I31.3 Pericardial effusion (noninflammatory); R65.10 Systemic inflammatory response syndrome (SIRS) of non-infectious origin without acute organ dysfunction; N17.9 Acute kidney failure, unspecified; I42.9 Cardiomyopathy, unspecified; I11.0 Hypertensive heart disease with heart failure; Z68.36 Body mass index [BMI] 36.0-36.9, adult; F12.90 Cannabis use, unspecified, uncomplicated; E11.9 Type 2 diabetes mellitus without complications; E66.9 Obesity, unspecified; K80.20 Calculus of gallbladder without cholecystitis without obstruction; F31.9 Bipolar disorder, unspecified; E78.5 Hyperlipidemia, unspecified; F14.10 Cocaine abuse, uncomplicated; F15.10 Other stimulant abuse, uncomplicated; Z79.82 Long term (current) use of aspirin; Z87.891 Personal history of nicotine dependence
CPT/HCPCS: 80048; 80053; 80307; 82962; 83036; 83735; 83880; 84439; 84443; 84484; 85025; 85610; 85730; 94664; J1644; J1815; J2543